=== PATIENT | female | born 1975 | race Caucasian/White ===

== ENCOUNTER → 2016-09-30 | Outpatient (CLI) | payer MEDICARE, OTHER | END | disposition home or self-care (01) | LOC: CPPFTMAIN 12:11 | PROVIDERS: ATTEND Internal Medicine Pulmonary Disease | DX: R06.02 Shortness of breath (principal) | CPT/HCPCS: 94060; 94726; 94729 ==

== ENCOUNTER → 2017-01-14 | Outpatient (CLI) | payer MEDICARE, OTHER ==
[2017-01-14 12:34] LABS: ALT 23 U/L (9-52); AST 14 U/L (14-36); Alkaline Phosphatase 75 U/L (38-126); Anion Gap 9 mmol/L; Blood Urea Nitrogen 11 mg/dL (7-17); Calcium 8.8 mg/dL (8.4-10.2); Carbon Dioxide 25 mmol/L (22-30); Chloride 104 mmol/L (98-107); Cholesterol 182 mg/dL (<200); Glucose 188 mg/dL (74-99); HDL Cholesterol 48 mg/dL (40-60); Non-African American GFR(MDRD) >60 (>60 ml/min/1.73 sqM); Potassium 3.9 mmol/L (3.5-5.1); Sodium 138 mmol/L (137-145); Total Bilirubin 1.1 mg/dL (0.2-1.3); Total Protein 6.6 g/dL (6.3-8.2); Triglycerides 104 mg/dL (<150)
[2017-01-14 19:40] LABS: Urine Creatinine 338.2 mg/dL
== END | disposition home or self-care (01) ==
LOC: LABWHC1 11:12
PROVIDERS: ATTEND Internal Medicine Endocrinology, Diabetes & Metabolism
DX: E11.65 Type 2 diabetes mellitus with hyperglycemia (principal)
CPT/HCPCS: 36415; 80053; 80061; 82043; 82570

== ENCOUNTER → 2017-02-06 | Outpatient (CLI) | payer MEDICARE, OTHER ==
--- NOTE | 2017-02-09 10:18 | MM ---
Reason for exam: screening (asymptomatic). Last mammogram was performed 1 year ago. History: Benign excisional biopsy of the left breast, 2000. Physical Findings: A clinical breast exam by your physician is recommended on an annual basis and results should be correlated with mammographic findings. MG 3D Screening Mammo W/Cad Bilateral CC and MLO view(s) were taken. Prior study comparison: February 11, 2016, bilateral MG 3d screening mammo w/cad. February 07, 2015, bilateral MG screening mammo w CAD. There are scattered fibroglandular densities. Benign calcifications. There is no discrete abnormality. No significant changes when compared with prior studies. ASSESSMENT: Benign, BI-RAD 2 RECOMMENDATION: Routine screening mammogram of both breasts in 1 year.
== END | disposition home or self-care (01) ==
LOC: RADMAMWWP 15:35
PROVIDERS: ATTEND Family Medicine
DX: Z12.31 Encounter for screening mammogram for malignant neoplasm of breast (principal)
CPT/HCPCS: 77063; G0202

== ENCOUNTER → 2017-04-09 | Outpatient (CLI) | payer MEDICARE, OTHER ==
[2017-04-13 16:03] LABS: Mis test requested (Blood) Osmotic Fragility
== END | disposition home or self-care (01) ==
LOC: LABWHC1 09:24
PROVIDERS: ATTEND Internal Medicine Hematology & Oncology
DX: E11.9 Type 2 diabetes mellitus without complications (principal); J45.909 Unspecified asthma, uncomplicated; E78.5 Hyperlipidemia, unspecified; R51 Headache; D50.9 Iron deficiency anemia, unspecified
CPT/HCPCS: 36415; 85557

== ENCOUNTER → 2017-07-02 | Outpatient (CLI) | payer MEDICARE, OTHER ==
[2017-07-02 08:49] LABS: Blood Urea Nitrogen 12 mg/dL (7-17)
--- NOTE | 2017-07-02 10:15 | CT ---
EXAMINATION TYPE: CT abdomen pelvis w con DATE OF EXAM: 07/02/2017 HISTORY: Patient complains of RUQ to RLQ pain. Patient has history of enlarged spleen (abnormal US a [facility]). CT DLP: 866.3mGycm Automated Exposure Control for Dose Reduction was Utilized. CONTRAST: CT scan of the abdomen and pelvis is performed with IV Contrast, patient injected with 100 mL of Omni paque 300. COMPARISON: 03/18/2016 CT abdomen pelvis FINDINGS: LUNG BASES: Minimal bibasilar subsegmental dependent atelectasis is present. LIVER/GB: No significant abnormality is appreciated. Gallbladder is surgically absent. No intrahepati c biliary ductal dilatation. PANCREAS: No significant abnormality is seen. SPLEEN: Although the spleen is prominent in size measuring 13.2 cm in longitudinal dimension and 11.8 cm in craniocaudal dimension this does not meet criteria for splenomegaly. The size is similar to th e exam of 03/18/2016. ADRENALS: No significant abnormality is seen. KIDNEYS: Kidneys enhance and excrete symmetrically. No evidence of hydronephrosis. BOWEL: Postsurgical changes of surgical sutures are seen around the greater curvature of the stomach from gastric sleeve. Small hiatal hernia is noted. Mild increased attenuation at the hepatic flexure is thought to relate to progression of contrast. No focal thickening or obstruction. UTERUS/ADNEXA: Follicular changes are seen of the ovaries with a dominant right cystic lesion, likely dominant follicle measuring up to 2 cm. Low attenuation of the endometrium likely relates to the pha se of menses. Uterus is grossly unremarkable. LYMPH NODES: No greater than 1cm abdominal or pelvic lymph nodes are appreciated. OSSEOUS STRUCTURES: No significant abnormality is seen. No suspicious osseous lesions. OTHER: There is mild diastases recti and a tiny fat filled umbilical hernia measuring 4 mm. IMPRESSION: 1. Prominent splenic size, although the spleen does not meet criteria for splenomegaly. This is simil ar in caliber to the prior exam of 03/18/2016. 2. No CT finding is seen to account for patient's clinical symptoms of right upper quadrant and right lower quadrant pain.
== END | disposition home or self-care (01) ==
LOC: RADCTMAIN 08:10
PROVIDERS: ATTEND Internal Medicine Hematology & Oncology
DX: R16.1 Splenomegaly, not elsewhere classified (principal); Z88.1 Allergy status to other antibiotic agents; Z88.8 Allergy status to other drugs, medicaments and biological substances
CPT/HCPCS: 82565; 84520; 74177; 36415; Q9967

== ENCOUNTER 2017-07-28 13:05 | Emergency (ER) | payer MEDICARE, OTHER ==
--- NOTE | 2017-07-28 13:45 | ED ---
General Adult HPI - General Chief complaint: Upper Respiratory Infection Stated complaint: Flu like symptoms Time Seen by Provider: 07/28/17 13:05 Source: patient, RN notes reviewed Mode of arrival: ambulatory Limitations: no limitations - History of Present Illness Initial comments: This is a 42 year old female presents emergency department stating that for about 9 days now she's had a cough and some congestion and a little tightness in her chest on occasion. Patient states she has been treated with Zithromax and Tamiflu about a week ago and she does not feel any better. Patient states she continues to cough and feels others fluid in her chest but she is unable to cough it up. Patient states she doesn't really feel that short of breath other than some tightness occasionally in her chest. Patient states she does have a history of asthma. Patient denies any anterior chest pain or pressure. Patient denies any recent fever chills. Patient denies abdominal pain patient denies nausea vomiting diarrhea - Related Data Home Medications Medication Instructions Recorded Confirmed Cholecalciferol [Vitamin D3] 2,000 unit PO DAILY 06/23/14 07/28/17 Mirtazapine [Remeron] 15 mg PO HS 06/23/14 07/28/17 Montelukast Sodium [Singulair] 10 mg PO HS 06/23/14 07/28/17 Omeprazole [PriLOSEC] 20 mg PO DAILY 06/23/14 07/28/17 clonazePAM [KlonoPIN] 0.5 mg PO HS 06/23/14 07/28/17 Albuterol Inhaler [Ventolin 1 - 2 puff INHALATION RT-Q6H PRN 01/11/15 07/28/17 Inhaler] Cyclobenzaprine [Flexeril] 10 mg PO HS PRN 01/11/15 07/28/17 Fluticasone/Salmeterol [Advair Hfa 2 puff INHALATION RT-DAILY 01/11/15 07/28/17 115-21 Mcg Inhaler] ALPRAZolam [Xanax] 0.25 mg PO BID PRN 07/28/17 07/28/17 Calcium Carbonate [Calcium] 600 mg PO DAILY 07/28/17 07/28/17 Exenatide Microspheres [Bydureon 2 mg SQ WE 07/28/17 07/28/17 Pen] Gabapentin [Neurontin] 300 mg PO HS 07/28/17 07/28/17 Latanoprost Ophth [Xalatan 0.005%] 1 drops BOTH EYES HS 07/28/17 07/28/17 Multivitamins, Thera [Multivitamin 1 tab PO DAILY 07/28/17 07/28/17 (formulary)] Pravastatin Sodium [Pravachol] 80 mg PO HS 07/28/17 07/28/17 Ranitidine HCl [Zantac] 150 mg PO BID 07/28/17 07/28/17 Vitamin C/Biotin [Hair, Skin and 1 tab PO DAILY 07/28/17 07/28/17 Nails] glipiZIDE [Glucotrol] 5 mg PO AC-BID 07/28/17 07/28/17 metFORMIN HCL ER [Glucophage Xr] 500 mg PO HS 07/28/17 07/28/17 Previous Rx's Medication Instructions Recorded Ciprofloxacin HCl [Cipro] 500 mg PO Q12HR #20 tablet 07/28/17 Allergies Allergy/AdvReac Type Severity Reaction Status Date / Time erythromycin base Allergy TOLD BY DR Verified 07/28/17 13:52 NOT TO TAKE -GASTRIC SLEEVE ibuprofen Allergy HISTORY OF Verified 07/28/17 13:52 GASTRIC SLEEVE-NOT TO TAKE PER " sumatriptan [From Imitrex] Allergy AGITATION,H Verified 07/28/17 13:52 ALLUCINATIO NS sumatriptan succinate Allergy Hallucinati Verified 07/28/17 13:52 [From Imitrex] ons topiramate [From Topamax] Allergy Hallucinati Verified 07/28/17 13:52 ons vancomycin Allergy RED MAN Verified 07/28/17 13:52 SYNDROME,SHORTNESS OF BREATH benzoperoxide Allergy Rash/Hives Uncoded 07/28/17 13:13 Review of Systems ROS Statement: Those systems with pertinent positive or pertinent negative responses have been documented in the HPI. ROS Other: All systems not noted in ROS Statement are negative. Past Medical History Past Medical History: Asthma, Diabetes Mellitus, GERD/Reflux, Hyperlipidemia, Rheumatoid Arthritis (RA) Additional Past Medical History / Comment(s): MIGRAINE, FATTY LIVER,IRRITABLE BOWEL, History of Any Multi-Drug Resistant Organisms: MRSA, Other MDRO Date of last positivie culture/infection: 2013 MDRO Source:: nasal Past Surgical History: Adenoidectomy, Bariatric Surgery, Breast Surgery, Section, Cholecystectomy, Hernia Repair, Tonsillectomy, Tubal Ligation Additional Past Surgical History / Comment(s): deviated septum,GASTRIC SLEEVE,D& C,LAP BAN, LAP BAND REMOVAL,UMBILICAL HERNIA,INCISIONAL HERNIA,RIGHT ANKLE SURGERY,CYST BIOPSY Past Anesthesia/Blood Transfusion Reactions: Postoperative Nausea & Vomiting ( PONV) Past Psychological History: Anxiety, Bipolar, PTSD Smoking Status: Former smoker Past Alcohol Use History: Rare Past Drug Use History: None Reported - Past Family History Sister(s) Family Medical History: Deep Vein Thrombosis (DVT) General Exam - General Exam Comments Initial Comments: GENERAL: Patient is well-developed and well-nourished. Patient is nontoxic and well- hydrated and is in mild distress. ENT: Neck is soft and supple. No significant lymphadenopathy is noted. Oropharynx is clear. Moist mucous membranes. Neck has full range of motion without eliciting any pain. EYES: The sclera were anicteric and conjunctiva were pink and moist. Extraocular movements were intact and pupils were equal round and reactive to light. Eyelids were unremarkable. PULMONARY: Unlabored respirations. Good breath sounds bilaterally. No audible rales rhonchi or wheezing was noted. CARDIOVASCULAR: There is a regular rate and rhythm without any murmurs gallops or rubs. ABDOMEN: Soft and nontender with normal bowel sounds. SKIN: Skin is clear with no lesions or rashes and otherwise unremarkable. NEUROLOGIC: Patient is alert and oriented x3. Cranial nerves II through XII are grossly intact. Motor and sensory are also intact. Normal speech, volume and content. Symmetrical smile. MUSCULOSKELETAL: Normal extremities with adequate strength and full range of motion. No lower extremity swelling or edema. No calf tenderness. LYMPHATICS: No significant lymphadenopathy is noted PSYCHIATRIC: Normal psychiatric evaluation. Limitations: no limitations Course Vital Signs 07/28/17 13:09 Temperature 98.1 F Pulse Rate 90 Respiratory 18 Rate Blood Pressure 116/68 O2 Sat by Pulse 99 Oximetry Medical Decision Making - Medical Decision Making Chest x-ray shows no acute abnormality. Disposition Clinical Impression: Bronchitis Disposition: HOME SELF-CARE Condition: Good Instructions: Acute Bronchitis (ED) Prescriptions: Ciprofloxacin HCl [Cipro] 500 mg PO Q12HR #20 tablet Referrals: Kaylee Bond MD [Primary Care Provider] - 1-2 days Time of Disposition: 14:20
--- NOTE | 2017-07-28 13:53 | XR ---
EXAMINATION TYPE: XR chest 2V DATE OF EXAM: 07/28/2017 COMPARISON: Chest x-ray February 26, 2016. HISTORY: Difficulty in breathing. TECHNIQUE: Frontal and lateral views of the chest are obtained. FINDINGS: There is no focal air space opacity, pleural effusion, or pneumothorax seen. The cardiac silhouette size is within normal limits. The osseous structures are intact. Cholecystectomy clips a re redemonstrated. Surgical clips near diaphragmatic hiatus are again seen. IMPRESSION: No acute cardiopulmonary process. No significant change from prior.
[2017-07-28 14:45] VITALS: BP 117/66; PULSE 71; RESP 16; TEMP 97.9
== END 2017-07-28 14:45 | disposition home or self-care (01) ==
LOC: EC 13:05
DX: J45.909 Unspecified asthma, uncomplicated (principal); E78.5 Hyperlipidemia, unspecified; E11.9 Type 2 diabetes mellitus without complications; K21.9 Gastro-esophageal reflux disease without esophagitis; F41.9 Anxiety disorder, unspecified; Z87.891 Personal history of nicotine dependence; Z79.51 Long term (current) use of inhaled steroids; Z79.84 Long term (current) use of oral hypoglycemic drugs; Z79.899 Other long term (current) drug therapy; Z88.1 Allergy status to other antibiotic agents; Z88.6 Allergy status to analgesic agent; Z88.8 Allergy status to other drugs, medicaments and biological substances; Z86.14 Personal history of Methicillin resistant Staphylococcus aureus infection
CPT/HCPCS: 71046; 99283

== ENCOUNTER → 2017-08-10 | Outpatient (CLI) | payer MEDICARE, OTHER ==
[2017-08-10 10:29] LABS: ALT 26 U/L (9-52); AST 16 U/L (14-36); Albumin 4.3 g/dL (3.5-5.0); Alkaline Phosphatase 79 U/L (38-126); Anion Gap 10 mmol/L; Blood Urea Nitrogen 14 mg/dL (7-17); Calcium 9.7 mg/dL (8.4-10.2); Carbon Dioxide 30 mmol/L (22-30); Chloride 100 mmol/L (98-107); Cholesterol 208 mg/dL (<200); Glucose 232 mg/dL (74-99); HDL Cholesterol 48 mg/dL (40-60); LDL Cholesterol,Calculated 135 mg/dL (0-99); Potassium 3.6 mmol/L (3.5-5.1); Sodium 140 mmol/L (137-145); Total Bilirubin 1.3 mg/dL (0.2-1.3); Total Protein 7.7 g/dL (6.3-8.2); Triglycerides 125 mg/dL (<150)
[2017-08-10 17:26] LABS: Hemoglobin A1C 8.1 % (4.0-6.0)
== END | disposition home or self-care (01) ==
LOC: LABWHC1 09:50
PROVIDERS: ATTEND Internal Medicine Endocrinology, Diabetes & Metabolism
DX: E11.65 Type 2 diabetes mellitus with hyperglycemia (principal)
CPT/HCPCS: 36415; 80053; 80061; 82043; 82570; 83036

== ENCOUNTER → 2017-11-13 | Outpatient (CLI) | payer MEDICARE, OTHER ==
[2017-11-13 09:27] LABS: ALT 34 U/L (9-52); AST 16 U/L (14-36); Albumin 4.1 g/dL (3.5-5.0); Alkaline Phosphatase 80 U/L (38-126); Anion Gap 13 mmol/L; Blood Urea Nitrogen 12 mg/dL (7-17); Calcium 9.1 mg/dL (8.4-10.2); Carbon Dioxide 25 mmol/L (22-30); Chloride 101 mmol/L (98-107); Cholesterol 168 mg/dL (<200); Glucose 251 mg/dL (74-99); HDL Cholesterol 44 mg/dL (40-60); LDL Cholesterol,Calculated 97 mg/dL (0-99); Potassium 4.1 mmol/L (3.5-5.1); Sodium 139 mmol/L (137-145); Total Bilirubin 1.4 mg/dL (0.2-1.3); Total Protein 6.9 g/dL (6.3-8.2); Triglycerides 136 mg/dL (<150)
[2017-11-13 18:32] LABS: Hemoglobin A1C 8.4 % (4.0-6.0)
== END ==
LOC: LABWHC1 08:48
PROVIDERS: ATTEND Internal Medicine Endocrinology, Diabetes & Metabolism
DX: E11.65 Type 2 diabetes mellitus with hyperglycemia (principal)
CPT/HCPCS: 36415; 80053; 80061; 83036

== ENCOUNTER → 2017-11-13 | Outpatient (CLI) | payer MEDICARE, OTHER ==
--- NOTE | 2017-11-13 10:05 | US ---
EXAMINATION TYPE: US abdomen limited DATE OF EXAM: 11/13/2017 COMPARISON: CT CLINICAL HISTORY: Arthropathy, Splenomegaly R16.1. Pt states history of enlarged spleen/ autoimmune d isorder EXAM MEASUREMENTS: Spleen: 12.7 x 6.5 cm Left Kidney: 11.6 x 4.8 x 5.2 cm 1. Spleen: Unremarkable in morphology and echogenicity 2. Left Kidney: Appeared wnl . No hydronephrosis or nephrolithiasis. IMPRESSION: Spleen is prominent in size although does not meet size criteria for splenomegaly. This i s similar to exams of 07/02/2017 and 03/18/2016.
--- NOTE | 2017-11-15 20:12 | BD ---
EXAMINATION TYPE: Axial Bone Density DATE OF EXAM: 11/13/2017 COMPARISON: NONE CLINICAL HISTORY: 42 YR OLD FEMALE....ICD-10 CODE: M12.9 ARTHRITIS Height: 67 Weight: 198 FRAX RISK QUESTIONS: Glucocorticoids (More than 3mos): YES (Ex: prednisone, prednisolone, methylprednisolone, dexamethasone, and hydrocortisone). Secondary Osteoporosis: YES 5. Chronic liver disease: FATTY LIVER Rheumatoid Arthritis: NOT TREATED, BUT HAS MARKERS FOR RA RISK FACTORS HISTORY OF: Active: YES Diet low in dairy products/other sources of calcium: YES, GASTRIC SLEEVE Postmenopausal woman: NA Hyperparathyroidism: NO Adrenal Insufficiency: NO MEDICATIONS: Prednisone or other steroids: ASTHMA, INHALERS AND PREDNISONE How Lon YRS Additional Medications: XANAX PRN, CLONAZEPAM, REMERON, REFLUX MEDS,LIPITOR, CALCIUM AND VIT D, DIAB ETIC MEDS Additional History: DIABETIC, REFLUX BI-POLAR, AUTO IMMUNE CONDITION EXAM MEASUREMENTS: Bone mineral densitometry was performed using the [employer] System. Bone mineral density as measured about the Lumbar spine is: ----- L1-L4(G/cm2): 1.407 T Score Values are as follows: ----- L1: 1.6 ----- L2: 2.3 ----- L3: 2.9 ----- L4: 0.9 ----- L1-L4: 1.9 Bone mineral density FIRST BONE DENSITY......BASELINE STUDY Bone mineral density about the R hip (g/cm2): 1.246 Bone mineral density about the L hip (g/cm2): 1.239 T Score values are as follows: -----R Neck: 1.4 -----L Neck: 1.1 -----R Total: 1.9 -----L Total: 1.8 Bone mineral density BASELINE STUDY FRAX%S: THERE IS A 2.65 CHANCE OF A MAJOR OSTEOPOROTIC FX AND A 0.0% FOR HIP FX.....PROBABILITY O F FX IN 10 YRS TIME IMPRESSION: Note that Z score values were utilized given premenopausal status. Bone mineral density is within the expected range for patient's age. NOTE: T-SCORE=SD OF THE YOUNG ADULT MEAN.
== END | disposition home or self-care (01) ==
LOC: RADBDWWP 08:01
PROVIDERS: ATTEND Internal Medicine Hematology & Oncology
DX: R16.1 Splenomegaly, not elsewhere classified (principal); M19.90 Unspecified osteoarthritis, unspecified site; Z88.1 Allergy status to other antibiotic agents; Z88.8 Allergy status to other drugs, medicaments and biological substances
CPT/HCPCS: 76705; 77080

== ENCOUNTER → 2018-02-16 | Outpatient (CLI) | payer MEDICARE, OTHER ==
--- NOTE | 2018-02-18 11:13 | MM ---
Reason for exam: screening (asymptomatic). Last mammogram was performed 1 year ago. History: Benign excisional biopsy of the left breast, 2000. Physical Findings: A clinical breast exam by your physician is recommended on an annual basis and results should be correlated with mammographic findings. MG 3D Screening Mammo W/Cad Bilateral CC and MLO view(s) were taken. Prior study comparison: February 06, 2017, bilateral MG 3d screening mammo w/cad. February 11, 2016, bilateral MG 3d screening mammo w/cad. There are scattered fibroglandular densities. No significant changes when compared with prior studies. ASSESSMENT: Benign, BI-RAD 2 RECOMMENDATION: Routine screening mammogram of both breasts in 1 year.
== END | disposition home or self-care (01) ==
LOC: RADMAMWWP 10:59
PROVIDERS: ATTEND Family Medicine
DX: Z12.31 Encounter for screening mammogram for malignant neoplasm of breast (principal)
CPT/HCPCS: 77063; 77067

== ENCOUNTER 2018-06-07 04:51 | Observation (INO) | payer MEDICARE, OTHER ==
[2018-06-07] MEDS ORDERED: SODIUM CHLORIDE 0.9% 500 ML 500 ML IV STA (04:53)
[2018-06-07] MEDS ORDERED: ASPIRIN 81 MG PO STA (04:53)
--- NOTE | 2018-06-07 05:13 | ED ---
General Adult HPI - General Chief complaint: Chest Pain Stated complaint: chest pain Time Seen by Provider: 06/07/18 04:53 Source: patient, RN notes reviewed, old records reviewed - History of Present Illness Initial comments: 42-year-old female presents for evaluation of chest pain. Patient's symptoms began about 30 minutes prior to arrival. She was transported by EMS, given nitroglycerin which improved her symptoms. Pain began as a squeezing substernal pain radiating to her left neck and left shoulder. Pain resolved at the time of my initial evaluation. She has no known history of coronary artery disease herself. She has family history of cardiomyopathy and family history of CAD including both her mother and father. She herself has history of TIA and DVT. She is currently on Xarelto. Patient denies diaphoresis. Denies nausea or vomiting. Patient is a nonsmoker. She has history of diabetes. - Related Data Home Medications Medication Instructions Recorded Confirmed Cholecalciferol [Vitamin D3] 2,000 unit PO DAILY 06/23/14 05/19/18 Mirtazapine [Remeron] 15 mg PO HS 06/23/14 05/19/18 Montelukast Sodium [Singulair] 10 mg PO HS 06/23/14 05/19/18 clonazePAM [KlonoPIN] 0.5 mg PO HS 06/23/14 05/19/18 Albuterol Inhaler [Ventolin 1 - 2 puff INHALATION RT-Q6H PRN 01/11/15 05/19/18 Inhaler] Cyclobenzaprine [Flexeril] 10 mg PO HS PRN 01/11/15 05/19/18 Fluticasone/Salmeterol [Advair Hfa 2 puff INHALATION RT-DAILY 01/11/15 05/19/18 115-21 Mcg Inhaler] ALPRAZolam [Xanax] 0.25 mg PO BID PRN 07/28/17 05/19/18 Calcium Carbonate [Calcium] 600 mg PO DAILY 07/28/17 05/19/18 Exenatide Microspheres [Bydureon 2 mg SQ WE 07/28/17 05/19/18 Pen] Gabapentin [Neurontin] 300 mg PO HS 07/28/17 05/19/18 Latanoprost Ophth [Xalatan 0.005%] 1 drops BOTH EYES HS 07/28/17 05/19/18 Multivitamins, Thera [Multivitamin 1 tab PO DAILY 07/28/17 05/19/18 (formulary)] Pravastatin Sodium [Pravachol] 80 mg PO HS 07/28/17 05/19/18 Vitamin C/Biotin [Hair, Skin and 1 tab PO DAILY 07/28/17 05/19/18 Nails] Omalizumab [Xolair] 300 mg SQ DIRECTED 12/01/17 05/19/18 Insulin Glargine [Lantus] 20 unit SQ HS 12/29/17 05/19/18 Rivaroxaban [Xarelto] 10 mg PO DAILY 03/24/18 05/19/18 Allergies Allergy/AdvReac Type Severity Reaction Status Date / Time erythromycin base Allergy TOLD BY DR Verified 05/19/18 09:02 NOT TO TAKE -GASTRIC SLEEVE ibuprofen Allergy HISTORY OF Verified 05/19/18 09:02 GASTRIC SLEEVE-NOT TO TAKE PER DR" sumatriptan [From Imitrex] Allergy AGITATION,H Verified 05/19/18 09:02 ALLUCINATIO NS sumatriptan succinate Allergy Hallucinati Verified 05/19/18 09:02 [From Imitrex] ons topiramate [From Topamax] Allergy Hallucinati Verified 05/19/18 09:02 ons vancomycin Allergy RED MAN Verified 05/19/18 09:02 SYNDROME,SHORTNESS OF BREATH benzoperoxide Allergy Rash/Hives Uncoded 05/19/18 09:02 Review of Systems ROS Statement: Those systems with pertinent positive or pertinent negative responses have been documented in the HPI. ROS Other: All systems not noted in ROS Statement are negative. Past Medical History Past Medical History: Asthma, Diabetes Mellitus, Deep Vein Thrombosis (DVT), GERD/Reflux, Hyperlipidemia, Rheumatoid Arthritis (RA) Additional Past Medical History / Comment(s): MIGRAINE, FATTY LIVER,IRRITABLE BOWEL. BLOOD RIGHT LEG. History of Any Multi-Drug Resistant Organisms: MRSA, Other MDRO Date of last positivie culture/infection: 2013 MDRO Source:: nasal Past Surgical History: Adenoidectomy, Bariatric Surgery, Breast Surgery, Section, Cholecystectomy, Hernia Repair, Tonsillectomy, Tubal Ligation Additional Past Surgical History / Comment(s): deviated septum,GASTRIC SLEEVE,D& C,LAP BAN, LAP BAND REMOVAL,UMBILICAL HERNIA,INCISIONAL HERNIA,RIGHT ANKLE SURGERY,CYST BIOPSY Past Anesthesia/Blood Transfusion Reactions: Postoperative Nausea & Vomiting ( PONV) Past Psychological History: Anxiety, Bipolar, PTSD Smoking Status: Former smoker - Past Family History Sister(s) Family Medical History: Deep Vein Thrombosis (DVT) General Exam General appearance: alert, in no apparent distress Head exam: Present: atraumatic, normocephalic Eye exam: Present: normal appearance, PERRL ENT exam: Present: normal exam Neck exam: Present: normal inspection. Absent: tenderness, meningismus Respiratory exam: Present: normal lung sounds bilaterally. Absent: respiratory distress, wheezes Cardiovascular Exam: Present: regular rate, normal rhythm GI/Abdominal exam: Present: soft. Absent: distended, tenderness, guarding Extremities exam: Present: normal inspection, normal capillary refill. Absent: pedal edema, calf tenderness Neurological exam: Present: alert, oriented X3, CN II-XII intact. Absent: motor sensory deficit Psychiatric exam: Present: normal affect, normal mood Skin exam: Present: warm, dry, intact. Absent: cyanosis, diaphoretic Course Vital Signs 06/07/18 06/07/18 04:52 06:08 Pulse Rate 67 68 Respiratory 16 16 Rate Blood Pressure 143/82 118/68 O2 Sat by Pulse 99 100 Oximetry EKG Findings - EKG Comments: EKG Findings:: EKG: Normal sinus rhythm, minimal voltage criteria for LVH, T- wave inversion in lead 3 with Q waves. Ventricular rate of 66, OK interval 156 , QRS duration 84, QTC 419, no significant change compared to previous EKG in 2012. Medical Decision Making - Medical Decision Making 42-year-old female presenting with chest pain which began approximately 30 minutes prior to arrival. Pain was typical in nature, squeezing substernal pain with radiation to the neck and shoulder. Patient does have risk factors including diabetes and family history of coronary artery disease. Workup in the emergency department is essentially negative. Patient has normal CBC, d- dimer normal at 0.43. Troponin is negative. Patient has mild elevation in AST and ALT although she has no abdominal pain and previous cholecystectomy. Chest x-ray negative for acute cardiopulmonary disease. Given her symptoms began just prior to arrival and her risk factor she will be kept in observation for serial cardiac enzymes, telemetry, echo, and cardiology consultation. She is anticoagulated on Xarelto, which is her home medication. - Lab Data Result diagrams: 06/07/18 04:52 06/07/18 04:52 Lab Results 06/07/18 06/07/18 06/07/18 Range/Units 04:52 04:52 04:52 WBC 6.9 (3.8-10.6) k/uL RBC 4.77 (3.80-5.40) m/uL Hgb 14.0 (11.4-16.0) gm/dL Hct 39.7 (34.0-46.0) % MCV 83.3 (80.0-100.0) fL MCH 29.4 (25.0-35.0) pg MCHC 35.3 (31.0-37.0) g/dL RDW 12.5 (11.5-15.5) % Plt Count 292 (150-450) k/uL Neutrophils % 62 % Lymphocytes % 28 % Monocytes % 6 % Eosinophils % 3 % Basophils % 1 % Neutrophils # 4.3 (1.3-7.7) k/uL Lymphocytes # 2.0 (1.0-4.8) k/uL Monocytes # 0.4 (0-1.0) k/uL Eosinophils # 0.2 (0-0.7) k/uL Basophils # 0.1 (0-0.2) k/uL PT (9.0-12.0) sec INR (<1.2) APTT (22.0-30.0) sec D-Dimer (<0.60) mg/L FEU Sodium 139 (137-145) mmol/L Potassium 3.7 (3.5-5.1) mmol/L Chloride 103 (98-107) mmol/L Carbon Dioxide 29 (22-30) mmol/L Anion Gap 7 mmol/L BUN 10 (7-17) mg/dL Creatinine 0.58 (0.52-1.04) mg/dL Est GFR (CKD-EPI)AfAm >90 (>60 ml/min/1.73 sqM) Est GFR (CKD-EPI)NonAf >90 (>60 ml/min/1.73 sqM) Glucose 195 H (74-99) mg/dL Calcium 9.0 (8.4-10.2) mg/dL Magnesium 1.9 (1.6-2.3) mg/dL Total Bilirubin 0.7 (0.2-1.3) mg/dL AST 67 H (14-36) U/L ALT 57 H (9-52) U/L Alkaline Phosphatase 90 (38-126) U/L Total Creatine Kinase 57 (30-135) U/L CK-MB (CK-2) 0.4 (0.0-2.4) ng/mL CK-MB (CK-2) Rel Index 0.7 Troponin I <0.012 (0.000-0.034) ng/mL NT-Pro-B Natriuret Pep pg/mL Total Protein 7.2 (6.3-8.2) g/dL Albumin 3.9 (3.5-5.0) g/dL Amylase 47 (30-110) U/L Lipase 85 (23-300) U/L 06/07/18 06/07/18 06/07/18 Range/Units 04:52 04:52 04:52 WBC (3.8-10.6) k/uL RBC (3.80-5.40) m/uL Hgb (11.4-16.0) gm/dL Hct (34.0-46.0) % MCV (80.0-100.0) fL MCH (25.0-35.0) pg MCHC (31.0-37.0) g/dL RDW (11.5-15.5) % Plt Count (150-450) k/uL Neutrophils % % Lymphocytes % % Monocytes % % Eosinophils % % Basophils % % Neutrophils # (1.3-7.7) k/uL Lymphocytes # (1.0-4.8) k/uL Monocytes # (0-1.0) k/uL Eosinophils # (0-0.7) k/uL Basophils # (0-0.2) k/uL PT 10.7 (9.0-12.0) sec INR 1.0 (<1.2) APTT 26.0 (22.0-30.0) sec D-Dimer 0.43 (<0.60) mg/L FEU Sodium (137-145) mmol/L Potassium (3.5-5.1) mmol/L Chloride (98-107) mmol/L Carbon Dioxide (22-30) mmol/L Anion Gap mmol/L BUN (7-17) mg/dL Creatinine (0.52-1.04) mg/dL Est GFR (CKD-EPI)AfAm (>60 ml/min/1.73 sqM) Est GFR (CKD-EPI)NonAf (>60 ml/min/1.73 sqM) Glucose (74-99) mg/dL Calcium (8.4-10.2) mg/dL Magnesium (1.6-2.3) mg/dL Total Bilirubin (0.2-1.3) mg/dL AST (14-36) U/L ALT (9-52) U/L Alkaline Phosphatase (38-126) U/L Total Creatine Kinase (30-135) U/L CK-MB (CK-2) (0.0-2.4) ng/mL CK-MB (CK-2) Rel Index Troponin I (0.000-0.034) ng/mL NT-Pro-B Natriuret Pep 36 pg/mL Total Protein (6.3-8.2) g/dL Albumin (3.5-5.0) g/dL Amylase (30-110) U/L Lipase (23-300) U/L Disposition Clinical Impression: Chest pain Disposition: ADMITTED IP TO THIS [facility] Condition: Stable Is patient prescribed a controlled substance at d/c from ED?: No Referrals: Kaylee Bond MD [Primary Care Provider] - 1-2 days Decision to Admit Reason: Admit from EC Decision Date: 06/07/18 Decision Time: 06:12
[2018-06-07 05:14] LABS: Basophils # (A) 0.1 k/uL (0-0.2); Basophils % (A) 1 %; Eosinophils # (A) 0.2 k/uL (0-0.7); Eosinophils % (A) 3 %; HCT 39.7 % (34.0-46.0); Lymphocytes % (A) 28 %; MCH 29.4 pg (25.0-35.0); MCHC 35.3 g/dL (31.0-37.0); MCV 83.3 fL (80.0-100.0); Mean Platelet Volume 6.7; Monocytes # (A) 0.4 k/uL (0-1.0); Monocytes % (A) 6 %; Neutrophils # (A) 4.3 k/uL (1.3-7.7); Neutrophils % (A) 62 %; Platelet Count 292 k/uL (150-450); RBC 4.77 m/uL (3.80-5.40); RDW 12.5 % (11.5-15.5); WBC 6.9 k/uL (3.8-10.6)
[2018-06-07 05:16] LABS: Prothrombin Time 10.7 sec (9.0-12.0)
[2018-06-07 05:17] LABS: ALT 57 U/L (9-52); AST 67 U/L (14-36); Albumin 3.9 g/dL (3.5-5.0); Alkaline Phosphatase 90 U/L (38-126); Amylase 47 U/L (30-110); Anion Gap 7 mmol/L; Blood Urea Nitrogen 10 mg/dL (7-17); Carbon Dioxide 29 mmol/L (22-30); Chloride 103 mmol/L (98-107); Glucose 195 mg/dL (74-99); Lipase 85 U/L (23-300); Magnesium 1.9 mg/dL (1.6-2.3); Potassium 3.7 mmol/L (3.5-5.1); Sodium 139 mmol/L (137-145); Total Bilirubin 0.7 mg/dL (0.2-1.3); Total Protein 7.2 g/dL (6.3-8.2)
--- NOTE | 2018-06-07 05:25 | XR ---
EXAM: XR Chest, 2 Views CLINICAL HISTORY: Chest Pain TECHNIQUE: Frontal and lateral views of the chest. COMPARISON: 07/28/17 FINDINGS: Lungs: Unremarkable. No consolidation. Pleural space: Unremarkable. No pneumothorax. Heart: Unremarkable. No cardiomegaly. Mediastinum: Unremarkable. Bones/joints: Unremarkable. IMPRESSION: No acute findings or substantial change
[2018-06-07 05:28] LABS: Creatine Kinase 57 U/L (30-135)
[2018-06-07 05:41] LABS: Creatine Kinase MB 0.4 ng/mL (0.0-2.4); Troponin I <0.012 ng/mL (0.000-0.034)
[2018-06-07] MEDS ORDERED: ACETAMINOPHEN TAB 325 MG TAB PO PRN (06:06)
[2018-06-07] MEDS ORDERED: HYDROmorphone 0.5 MG/0.5 ML SYRINGE IVP PRN (06:06)
[2018-06-07] MEDS ORDERED: NALOXONE 0.4 MG/ML 1 ML VIAL IV PRN (06:06)
[2018-06-07] MEDS ORDERED: NITROGLYCERIN SL TABS 0.4 MG TAB SUBLINGUAL PRN (06:08)
[2018-06-07] MEDS ORDERED: HYDROmorphone 1 MG/ML 1 ML SYRINGE IVP PRN (06:09)
[2018-06-07] MEDS ORDERED: ALPRAZolam 0.25 MG TAB PO PRN (08:30)
[2018-06-07] MEDS ORDERED: ALBUTEROL NEBULIZED 2.5 MG/3 ML INHALATION PRN (08:30)
[2018-06-07] MEDS ORDERED: HYDROCHLOROTHIAZIDE 12.5 MG CAP PO PRN (08:30)
[2018-06-07] MEDS ORDERED: HYDROcodone/APAP 5-325MG 1 EACH TAB PO PRN (08:30)
[2018-06-07] MEDS ORDERED: ONDANSETRON ODT 4 MG TAB PO PRN (08:30)
[2018-06-07] MEDS: RIVAROXABAN 10 MG TAB PO SCH (08:41)
[2018-06-07] MEDS: FAMOTIDINE 20 MG TAB PO SCH ×2 (08:41→20:08)
--- NOTE | 2018-06-07 10:18 | P.CRDCN ---
History of Present Illness Consult date: 06/07/18 Requesting physician: Ankita Crowe Reason for Consult (text): chest pain Chief complaint: chest pain History of present illness: This is a pleasant 42-year-old female with history of diabetes, hyperlipidemia, unknown autoimmune disorder, DVT, prior smoker quit 18 years ago, anemia, prior LAP-BAND which was transitioned to gastric sleeve and recently changed to bypass , and was previously told she has a leaky heart valve. Family history of premature CAD with her father passing away at the age of 46 of an [place]. Previously followed with Dr. Mandel in [place]. She recently underwent transition from gastric sleeve to gastric bypass in December of this year and underwent a chemical stress test prior to that which she says was normal. Presented to the emergency department with complaints of chest discomfort that she described as a squeezing pain in the center of her chest. This occurred at rest, no aggravating factors, no associated symptoms. Relieved with nitro times one. Lipitor evaluation normal CBC hemoglobin 14, normal electrolytes and renal function, normal d-dimer and troponin negative 1. EKG showed sinus rhythm with nonspecific ST-T wave abnormalities, no evidence of acute ischemia. Upon examination, patient is resting comfortably on a stretcher. No further complaints of chest discomfort. Past Medical History Past Medical History: Asthma, Diabetes Mellitus, Deep Vein Thrombosis (DVT), Fibromyalgia, GERD/Reflux, Hyperlipidemia, Rheumatoid Arthritis (RA) Additional Past Medical History / Comment(s): Anemia, IDDM type II, diabetic neuropathy bilateral legs, bilateral retinal bleeds/glaucoma, disc protusion S1/ S2 and L5, eczema, endometriosis, HPV, IBS, insomnia, leaky heart valve, migraines, myofacial pain, ocular migraines, overactive bladder, superficial blood clot R leg, falls d/t weak ankle. History of Any Multi-Drug Resistant Organisms: MRSA, Other MDRO Date of last positivie culture/infection: MDRO Source:: L leg Past Surgical History: Adenoidectomy, Bariatric Surgery, Breast Surgery, Section, Cholecystectomy, Hernia Repair, Tonsillectomy, Tubal Ligation , Uterine Ablation Additional Past Surgical History / Comment(s): Carbuncle removal, , deviated septum surgery, L breast surgery for plugged milk duct, Lap band since removed, gastric sleeve, gastric sleeve to wilver-en-y, incisiona hernia x2, R neck with lymph node bx, L axillary cyst bx, colonoscopy, D&Cs/ablation, colposcopy. Past Anesthesia/Blood Transfusion Reactions: Postoperative Nausea & Vomiting ( PONV) Smoking Status: Former smoker - Past Family History Mother Family Medical History: No Reported History Father Family Medical History: Myocardial Infarction ([place]) Additional Family Medical History / Comment(s): Father of a massive [place] following laser eye surgery. Sister(s) Family Medical History: Deep Vein Thrombosis (DVT) Medications and Allergies Home Medications Medication Instructions Recorded Confirmed Type Mirtazapine [Remeron] 15 mg PO HS 06/23/14 06/07/18 History Montelukast Sodium [Singulair] 10 mg PO HS 06/23/14 06/07/18 History clonazePAM [KlonoPIN] 0.5 mg PO HS 06/23/14 06/07/18 History Latanoprost Ophth [Xalatan 0.005%] 1 drops BOTH EYES HS 07/28/17 06/07/18 History Omalizumab [Xolair] 300 mg SQ Q28D 12/01/17 06/07/18 History Insulin Glargine [Lantus] 40 unit SQ HS 12/29/17 06/07/18 History Rivaroxaban [Xarelto] 10 mg PO HS 03/24/18 06/07/18 History ALPRAZolam [Xanax] 0.25 mg PO DAILY PRN 06/07/18 06/07/18 History Acyclovir 400 mg PO BID PRN 06/07/18 06/07/18 History Albuterol Inhaler [Ventolin Hfa 1 - 2 puff INHALATION RT-Q6H PRN 06/07/18 History Inhaler] Atorvastatin [Lipitor] 80 mg PO HS 06/07/18 06/07/18 History Biotin 5 mg PO DAILY 06/07/18 06/07/18 History Budesonide [Pulmicort Flexhaler] 2 puff INHALATION RT-BID 06/07/18 06/07/18 History Calcium Citrate 500 mg PO DAILY 06/07/18 06/07/18 History Cholecalciferol [Vitamin D3] 5,000 unit PO DAILY 06/07/18 06/07/18 History Clobetasol 0.05% Soln 1 applic TOPICAL BID PRN 06/07/18 06/07/18 History Cyanocobalamin (Vitamin B-12) 1,000 mcg PO DAILY 06/07/18 06/07/18 History [Vitamin B-12] Cyclobenzaprine [Flexeril] 5 - 10 mg PO HS 06/07/18 06/07/18 History Fluconazole [Diflucan] 100 mg PO DAILY PRN 06/07/18 06/07/18 History Gabapentin 800 mg PO BID 06/07/18 06/07/18 History HYDROcodone/APAP 5-325MG [[place] 1 - 2 tab PO Q4H PRN 06/07/18 06/07/18 History 5-325] Hydrochlorothiazide [Hydrodiuril] 12.5 mg PO DAILY PRN 06/07/18 06/07/18 History INSULIN LISPRO (humaLOG) [humaLOG] See Protocol SQ ACHS 06/07/18 06/07/18 History Ketoconazole 2% Shampoo [Nizoral] 1 applic TOPICAL Q3D PRN 06/07/18 06/07/18 History Mirabegron [Myrbetriq] 25 mg PO DAILY 06/07/18 06/07/18 History Ondansetron [Zofran ODT] 4 mg PO Q6H PRN 06/07/18 06/07/18 History Pedi Multivit No.25/Folic Acid 300 mcg PO BID 06/07/18 06/07/18 History [Flintstones Multivit Chew Tab] Penicillin V Potassium [Pen Vee K] 500 mg PO Q6H 06/07/18 06/07/18 History Phenazopyridine [Pyridium] 200 mg PO TID PRN 06/07/18 06/07/18 History Vitamin B Complex 1 cap PO DAILY 06/07/18 06/07/18 History predniSONE 10 mg PO DAILY PRN 06/07/18 06/07/18 History predniSONE See Taper PO DAILY 06/07/18 06/07/18 History Allergies Allergy/AdvReac Type Severity Reaction Status Date / Time cefazolin Allergy Unknown Verified 06/07/18 07:28 erythromycin base Allergy TOLD BY Verified 06/07/18 07:28 NOT TO TAKE -GASTRIC SLEEVE ibuprofen Allergy HISTORY OF Verified 06/07/18 07:28 GASTRIC SLEEVE-NOT TO TAKE PER " sumatriptan [From Imitrex] Allergy AGITATION,H Verified 06/07/18 07:28 ALLUCINATIO NS sumatriptan succinate Allergy Hallucinati Verified 06/07/18 07:28 [From Imitrex] ons topiramate [From Topamax] Allergy Hallucinati Verified 06/07/18 07:28 ons vancomycin Allergy RED MAN Verified 06/07/18 07:28 SYNDROME,SHORTNESS OF BREATH benzoperoxide Allergy Rash/Hives Uncoded 05/19/18 09:02 Physical Exam Vitals: Vital Signs Pulse Resp BP Pulse Ox 06/07/18 07:36 75 16 128/90 97 06/07/18 06:54 70 128/90 100 06/07/18 06:08 68 16 118/68 100 06/07/18 06:01 99 06/07/18 04:52 67 16 143/82 99 Intake and Output 06/06/18 06/07/18 06/07/18 22:59 06:59 14:59 Other: Weight 85.3 kg PHYSICAL EXAMINATION: HEENT: Head is atraumatic, normocephalic. Pupils equal, round. Neck is supple. There is no elevated jugular venous pressure. HEART EXAMINATION: Heart sounds regular, S1 and S2 normal. No murmur or gallop heard. CHEST EXAMINATION: Lungs are clear to auscultation and precussion. No chest wall tenderness is noted on palpation or with deep breathing. ABDOMEN: Soft, nontender. Bowel sounds are heard. No organomegaly noted. EXTREMITIES: 2+ peripheral pulses with no evidence of peripheral edema and no calf tenderness noted. NEUROLOGIC patient is awake, alert and oriented x3. . Results 06/07/18 04:52 06/07/18 04:52 Cardiac Enzymes 06/07/18 06/07/18 Range/Units 04:52 04:52 AST 67 H (14-36) U/L CK-MB (CK-2) 0.4 (0.0-2.4) ng/mL Troponin I <0.012 (0.000-0.034) ng/mL Coagulation 06/07/18 Range/Units 04:52 PT 10.7 (9.0-12.0) sec APTT 26.0 (22.0-30.0) sec CBC 06/07/18 Range/Units 04:52 WBC 6.9 (3.8-10.6) k/uL RBC 4.77 (3.80-5.40) m/uL Hgb 14.0 (11.4-16.0) gm/dL Hct 39.7 (34.0-46.0) % Plt Count 292 (150-450) k/uL Comprehensive Metabolic Panel 06/07/18 Range/Units 04:52 Sodium 139 (137-145) mmol/L Potassium 3.7 (3.5-5.1) mmol/L Chloride 103 (98-107) mmol/L Carbon Dioxide 29 (22-30) mmol/L BUN 10 (7-17) mg/dL Creatinine 0.58 (0.52-1.04) mg/dL Glucose 195 H (74-99) mg/dL Calcium 9.0 (8.4-10.2) mg/dL AST 67 H (14-36) U/L ALT 57 H (9-52) U/L Alkaline Phosphatase 90 (38-126) U/L Total Protein 7.2 (6.3-8.2) g/dL Albumin 3.9 (3.5-5.0) g/dL Current Medications Generic Name Dose Route Start Last Admin Trade Name Freq PRN Reason Stop Dose Admin Acetaminophen 650 mg 06/07/18 06:06 Tylenol Tab PO Q6HR PRN Mild Pain or Fever > 100.5 Hydrocodone Bitart/Acetaminophen 1 each 06/07/18 08:30 [place] 5-325 PO Q4H PRN Moderate Pain Albuterol Sulfate 2.5 mg 06/07/18 08:30 Ventolin Nebulized INHALATION RT-Q6H PRN Shortness Of Breath Alprazolam 0.25 mg 06/07/18 08:30 Xanax PO DAILY PRN Anxiety Cholecalciferol 5,000 unit 06/07/18 09:00 Vitamin D3 PO DAILY LEEANN Clonazepam 0.5 mg 06/07/18 21:00 Klonopin PO HS LEEANN Famotidine 20 mg 06/07/18 09:00 06/07/18 08:41 Pepcid PO 20 mg BID LEEANN Administration Fluticasone Propionate 1 puff 06/07/18 20:00 Flovent 110 Mcg Inhaler INHALATION RT-BID LEEANN Gabapentin 800 mg 06/07/18 09:00 Neurontin PO BID LEEANN Hydrochlorothiazide 12.5 mg 06/07/18 08:30 Hydrodiuril PO DAILY PRN Edema Hydromorphone HCl 0.5 mg 06/07/18 06:09 Dilaudid IVP Q3HR PRN Moderate Pain Insulin Aspart 0 unit 06/07/18 12:30 Novolog SQ ACHS LEEANN Protocol Insulin Detemir 20 unit 06/07/18 21:00 Levemir SQ HS LEEANN Latanoprost 1 drops 06/07/18 21:00 Xalatan 0.005% BOTH EYES HS LEEANN Mirtazapine 15 mg 06/07/18 21:00 Remeron PO HS LEEANN Montelukast Sodium 10 mg 06/07/18 21:00 Singulair PO HS LEEANN Naloxone HCl 0.2 mg 06/07/18 06:06 Narcan IV Q2M PRN Opioid Reversal Nitroglycerin 0.4 mg 06/07/18 06:08 Nitrostat SUBLINGUAL Q5M PRN Chest Pain Myrbetriq ( 25 mg 06/07/18 09:00 Mirabegron) 25 Mg PO DAILY [facility] Ondansetron HCl 4 mg 06/07/18 08:30 Zofran Odt PO Q6H PRN Nausea Pravastatin Sodium 80 mg 06/07/18 21:00 Pravachol PO HS LEEANN Rivaroxaban 10 mg 06/07/18 09:00 06/07/18 08:41 Xarelto PO 10 mg DAILY [facility] Administration Intake and Output 06/06/18 06/07/18 06/07/18 22:59 06:59 14:59 Other: Weight 85.3 kg 06/07/18 04:52 06/07/18 04:52 Assessment and Plan Assessment: #1 symptoms of chest pain, troponins negative x1, negative stress test in December according to the patient #2 diabetes #3 hyperlipidemia #4 prior smoker #5 family history of premature CAD Plan: From cardiology's perspective, we will obtain a 2-D echo with Doppler. We will continue to follow the troponins and obtain records from [facility] including stress test done in December. Further recommendations to follow. FIELD MARKETING DIRECTOR note has been reviewed, I agree with a documented findings and plan of care. Patient was seen and examined.
--- NOTE | 2018-06-07 10:19 | P.HPIM ---
History of Present Illness H&P Date: 06/07/18 Chief Complaint: chest pain This is a 42-year-old female patient of Dr. Fernando. Patient presented with complaints of chest pain. Patient stated she suddenly felt a sharp pain that radiated to her neck and left arm. Patient then proceeded to call EMS in which they gave nitro and symptoms relieved. Patient is still complaining of a sharp chest pain. Patient has a known past medical history of asthma, diabetes, diagnosis of superficial DVT in right leg in which she is on Zaroxolyn by her PCP, fibromyalgia, GERD, hyperlipidemia, rheumatoid arthritis, anemia, retinal bleed/gluacoma, disc protrusion, endometriosis, HPV, IBS, insomnia, leaky heart valve, migraines, overactive bladder, gastric sleeve Kemar-en-Y in December of this year and recent root canal in which she is currently on her antibiotic. Patient states she is currently not on her prednisone per the root canal she had finished the medication. Acyclovir and Diflucan also not currently taking per patient. Patient does report that both her parents have significant cardiac history. Patient is also complaining of pain and increased swelling to the left leg. Patient requesting venous Doppler to rule out DVT at this time. Chest x-ray completed showing no acute findings or Substantial change. EKG completed showing normal sinus rhythm. Minimal voltage criteria for LVH, may be normal variant nonspecific T-wave abnormality. Initial troponin negative. Cardiology services have been consulted. Review of Systems Please refer to HPI otherwise unremarkable Past Medical History Past Medical History: Asthma, Diabetes Mellitus, Deep Vein Thrombosis (DVT), Fibromyalgia, GERD/Reflux, Hyperlipidemia, Rheumatoid Arthritis (RA) Additional Past Medical History / Comment(s): Anemia, IDDM type II, diabetic neuropathy bilateral legs, bilateral retinal bleeds/glaucoma, disc protusion S1/ S2 and L5, eczema, endometriosis, HPV, IBS, insomnia, leaky heart valve, migraines, myofacial pain, ocular migraines, overactive bladder, superficial blood clot R leg, falls d/t weak ankle. History of Any Multi-Drug Resistant Organisms: MRSA, Other MDRO Date of last positivie culture/infection: MDRO Source:: L leg Past Surgical History: Adenoidectomy, Bariatric Surgery, Breast Surgery, Section, Cholecystectomy, Hernia Repair, Tonsillectomy, Tubal Ligation , Uterine Ablation Additional Past Surgical History / Comment(s): Carbuncle removal, , deviated septum surgery, L breast surgery for plugged milk duct, Lap band since removed, gastric sleeve, gastric sleeve to kemar-en-y, incisiona hernia x2, R neck with lymph node bx, L axillary cyst bx, colonoscopy, D&Cs/ablation, colposcopy. Past Anesthesia/Blood Transfusion Reactions: Postoperative Nausea & Vomiting ( PONV) Smoking Status: Former smoker - Past Family History Mother Family Medical History: No Reported History Father Family Medical History: Myocardial Infarction ([place]) Additional Family Medical History / Comment(s): Father of a massive [place] following laser eye surgery. Sister(s) Family Medical History: Deep Vein Thrombosis (DVT) Medications and Allergies Home Medications Medication Instructions Recorded Confirmed Type Mirtazapine [Remeron] 15 mg PO HS 06/23/14 06/07/18 History Montelukast Sodium [Singulair] 10 mg PO HS 06/23/14 06/07/18 History clonazePAM [KlonoPIN] 0.5 mg PO HS 06/23/14 06/07/18 History Latanoprost Ophth [Xalatan 0.005%] 1 drops BOTH EYES HS 07/28/17 06/07/18 History Omalizumab [Xolair] 300 mg SQ Q28D 12/01/17 06/07/18 History Insulin Glargine [Lantus] 40 unit SQ HS 12/29/17 06/07/18 History Rivaroxaban [Xarelto] 10 mg PO HS 03/24/18 06/07/18 History ALPRAZolam [Xanax] 0.25 mg PO DAILY PRN 06/07/18 06/07/18 History Acyclovir 400 mg PO BID PRN 06/07/18 06/07/18 History Albuterol Inhaler [Ventolin Hfa 1 - 2 puff INHALATION RT-Q6H PRN 06/07/18 History Inhaler] Atorvastatin [Lipitor] 80 mg PO HS 06/07/18 06/07/18 History Biotin 5 mg PO DAILY 06/07/18 06/07/18 History Budesonide [Pulmicort Flexhaler] 2 puff INHALATION RT-BID 06/07/18 06/07/18 History Calcium Citrate 500 mg PO DAILY 06/07/18 06/07/18 History Cholecalciferol [Vitamin D3] 5,000 unit PO DAILY 06/07/18 06/07/18 History Clobetasol 0.05% Soln 1 applic TOPICAL BID PRN 06/07/18 06/07/18 History Cyanocobalamin (Vitamin B-12) 1,000 mcg PO DAILY 06/07/18 06/07/18 History [Vitamin B-12] Cyclobenzaprine [Flexeril] 5 - 10 mg PO HS 06/07/18 06/07/18 History Fluconazole [Diflucan] 100 mg PO DAILY PRN 06/07/18 06/07/18 History Gabapentin 800 mg PO BID 06/07/18 06/07/18 History HYDROcodone/APAP 5-325MG [[place] 1 - 2 tab PO Q4H PRN 06/07/18 06/07/18 History 5-325] Hydrochlorothiazide [Hydrodiuril] 12.5 mg PO DAILY PRN 06/07/18 06/07/18 History INSULIN LISPRO (humaLOG) [humaLOG] See Protocol SQ ACHS 06/07/18 06/07/18 History Ketoconazole 2% Shampoo [Nizoral] 1 applic TOPICAL Q3D PRN 06/07/18 06/07/18 History Mirabegron [Myrbetriq] 25 mg PO DAILY 06/07/18 06/07/18 History Ondansetron [Zofran ODT] 4 mg PO Q6H PRN 06/07/18 06/07/18 History Pedi Multivit No.25/Folic Acid 300 mcg PO BID 06/07/18 06/07/18 History [Flintstones Multivit Chew Tab] Penicillin V Potassium [Pen Vee K] 500 mg PO Q6H 06/07/18 06/07/18 History Phenazopyridine [Pyridium] 200 mg PO TID PRN 06/07/18 06/07/18 History Vitamin B Complex 1 cap PO DAILY 06/07/18 06/07/18 History predniSONE 10 mg PO DAILY PRN 06/07/18 06/07/18 History predniSONE See Taper PO DAILY 06/07/18 06/07/18 History Allergies Allergy/AdvReac Type Severity Reaction Status Date / Time cefazolin Allergy Unknown Verified 06/07/18 07:28 erythromycin base Allergy TOLD BY DR Verified 06/07/18 07:28 NOT TO TAKE -GASTRIC SLEEVE ibuprofen Allergy HISTORY OF Verified 06/07/18 07:28 GASTRIC SLEEVE-NOT TO TAKE PER DR" sumatriptan [From Imitrex] Allergy AGITATION,H Verified 06/07/18 07:28 ALLUCINATIO NS sumatriptan succinate Allergy Hallucinati Verified 06/07/18 07:28 [From Imitrex] ons topiramate [From Topamax] Allergy Hallucinati Verified 06/07/18 07:28 ons vancomycin Allergy RED MAN Verified 06/07/18 07:28 SYNDROME,SHORTNESS OF BREATH benzoperoxide Allergy Rash/Hives Uncoded 05/19/18 09:02 Physical Exam Vitals: Vital Signs Pulse Resp BP Pulse Ox 06/07/18 07:36 75 16 128/90 97 06/07/18 06:54 70 128/90 100 06/07/18 06:08 68 16 118/68 100 06/07/18 06:01 99 06/07/18 04:52 67 16 143/82 99 Intake and Output 06/06/18 06/07/18 06/07/18 22:59 06:59 14:59 Other: Weight 85.3 kg Head normocephalic Neck supple Lungs clear to auscultation bilaterally no wheezing or crackles Heart regular rate and rhythm S1-S2, no rub or gallop Abdomen is soft nontender nondistended positive bowel sounds no hepatosplenomegaly Extremities +1 bilateral edema to lower extremities Neuro alert and orientated to 3 Results CBC & Chem 7: 06/07/18 04:52 06/07/18 04:52 Labs: Abnormal Lab Results - Last 24 Hours (Table) 06/07/18 Range/Units 04:52 Glucose 195 H (74-99) mg/dL AST 67 H (14-36) U/L ALT 57 H (9-52) U/L Thrombosis Risk Factor Assmnt - Choose All That Apply Any of the Below Risk Factors Present?: Yes Each Factor Represents 1 point: Age 41-60 years, Obesity (BMI >25) Other Risk Factors: Yes Each Risk Factor Represents 3 Points: Family history of DVT/PE, History of DVT/ PE Other congenital or acquired thrombophilia - If yes, enter type in comment: No Thrombosis Risk Factor Assessment Total Risk Factor Score: 8 Thrombosis Risk Factor Assessment Level: High Risk Assessment and Plan Assessment: 1. Chest pain. Initial troponin negative. EKG completed showing normal sinus rhythm. Minimal voltage criteria for LVH, maybe normal variant. Nonspecific T- wave abnormality and abnormal EKG. X-ray completed showing no acute findings or substantial change. Cardiology services have been consulted. 2. Left leg pain and increased edema. Patient requesting venous Doppler to rule out DVT. 3. History of superficial blood clot in right leg patient states approximately 3 months ago started on Xarelto per primary care provider 4. History of diabetes mellitus home insulin resumed along with sliding scale coverage 5. Elevated liver enzymes. AST 67 and 57. Lipitor to be held 6. Recent root canal. Patient states she has been on penicillin VK per her dentist. Patient has completed her prednisone. 7. Gastric sleeve to rouz-en-y In December 2017 8. History of asthma 9. History of fibromyalgia 10. History of GERD 11. History of hyperlipidemia. 12. History of rheumatoid arthritis 13. History of anxiety bipolar and PTSD 14. Patient states she has a history of a leaky heart valve. 2-D echo has been ordered per cardiology services Time with Patient: Greater than 30 (Greater than 60% of the total time spent in counseling and coordination of care. I performed an examination of the patient and discussed their management with the Nurse Practitioner. I have reviewed the Nurse Practitioner's notes and agree with the documented findings and plan of care)
[2018-06-07] MEDS: CHOLECALCIFEROL 1,000 UNIT TAB PO SCH (10:39)
[2018-06-07] MEDS: GABAPENTIN 400 MG CAP PO SCH ×2 (10:40→20:08)
--- NOTE | 2018-06-07 10:57 | US ---
EXAMINATION TYPE: US venous doppler duplex LE DATE OF EXAM: 06/07/2018 10:29 AM COMPARISON: US CLINICAL HISTORY: rule out DVT. bilateral edema SIDE PERFORMED: Bilateral TECHNIQUE: The lower extremity deep venous system is examined utilizing real time linear array sonog leanna with graded compression, doppler sonography and color-flow sonography. VESSELS IMAGED: External Iliac Vein (EIV) Common Femoral Vein Deep Femoral Vein Greater Saphenous Vein * Femoral Vein Popliteal Vein Small Saphenous Vein * Proximal Calf Veins (* superficial vessels) Right Leg: Negative for DVT Left Leg: Negative for DVT IMPRESSION: 1. Bilateral lower extremity ultrasound negative for deep venous thrombosis.
[2018-06-07 12:11] LABS: Glucose,Whole Blood 182 mg/dL (75-99)
[2018-06-07] MEDS: INSULIN ASPART 100 UNIT/ML 1 ML 10 ML VIAL SQ SCH ×3 (12:39→20:04)
[2018-06-07 13:15] LABS: Creatine Kinase 43 U/L (30-135)
[2018-06-07 13:28] LABS: Creatine Kinase MB 0.3 ng/mL (0.0-2.4); Troponin I <0.012 ng/mL (0.000-0.034)
[2018-06-07] MEDS: PENICILLIN V POTASSIUM 250 MG TAB PO SCH ×2 (15:19→17:47)
[2018-06-07 16:41] LABS: Glucose,Whole Blood 193 mg/dL (75-99)
[2018-06-07 18:29] LABS: Creatine Kinase 39 U/L (30-135)
[2018-06-07 18:41] LABS: Creatine Kinase MB <0.2 ng/mL (0.0-2.4); Troponin I <0.012 ng/mL (0.000-0.034)
--- NOTE | 2018-06-07 18:57 | ECHOF ---
Referral Reason:Chest pain MEASUREMENTS -------- HEIGHT: 172.7 cm WEIGHT: 85.3 kg BP: 128/90 RVIDd: 2.9 cm (< 3.3) IVSd: 1.1 cm (0.6 - 1.1) LVIDd: 4.3 cm (3.9 - 5.3) LVPWd: 1.1 cm (0.6 - 1.1) IVSs: 1.5 cm LVIDs: 2.7 cm LVPWs: 1.7 cm LA Diam: 3.6 cm (2.7 - 3.8) LAESV Index (A-L): 15.58 ml/m Ao Diam: 2.9 cm (2.0 - 3.7) AV Cusp: 1.9 cm (1.5 - 2.6) MV EXCURSION: 13.059 mm (> 18.000) MV EF SLOPE: 83 mm/s (70 - 150) EPSS: 1.0 cm MV E Carlos: 1.09 m/s MV DecT: 325 ms MV A Carlos: 0.98 m/s MV E/A Ratio: 1.12 RAP: 5.00 mmHg RVSP: 26.93 mmHg FINDINGS -------- Sinus rhythm. This was a technically good study. The left ventricular size is normal. There is borderline concentric left ventricular hypertrophy. Overall left ventricular systolic function is normal with, an EF between 55 - 60 %. The right ventricle is normal in size. Normal LA size by volume 22+/-6 ml/m2. The right atrium is normal in size. The aortic valve is trileaflet and appears structurally normal. The mitral valve is normal. Mild tricuspid regurgitation present. Right ventricular systolic pressure is normal at < 35 mmHg. There is no pulmonic regurgitation present. The aortic root size is normal. Normal inferior vena cava with normal inspiratory collapse consistent with estimated right atrial pre ssure of 5 mmHg. The inferior vena cava is mildly dilated. There is no pericardial effusion. CONCLUSIONS -------- 1. Sinus rhythm. 2. This was a technically good study. 3. The left ventricular size is normal. 4. There is borderline concentric left ventricular hypertrophy. 5. Overall left ventricular systolic function is normal with, an EF between 55 - 60 %. 6. Normal LA size by volume 22+/-6 ml/m2. 7. The aortic valve is trileaflet and appears structurally normal. 8. The mitral valve is normal. 9. Mild tricuspid regurgitation present. 10. Right ventricular systolic pressure is normal at < 35 mmHg. 11. There is no pulmonic regurgitation present. 12. The aortic root size is normal. 13. Normal inferior vena cava with normal inspiratory collapse consistent with estimated right atrial pressure of 5 mmHg. 14. The inferior vena cava is mildly dilated. 15. There is no pericardial effusion. OPERATING ROOM MANAGER: Marti Delaney RDCS
[2018-06-07] MEDS: FLUTICASONE 110 MCG INHALER INHALATION SCH (19:39)
[2018-06-07 20:03] LABS: Glucose,Whole Blood 115 mg/dL (75-99)
[2018-06-07] MEDS: clonazePAM 0.5 MG TAB PO SCH (20:08)
[2018-06-07] MEDS: MONTELUKAST 10 MG TAB PO SCH (20:08)
[2018-06-07] MEDS: INSULIN DETEMIR 100 UNIT/ML 10 ML VIAL SQ SCH (20:09)
[2018-06-07] MEDS: LATANOPROST 0.005% OPHTH DROPS 2.5 ML BTL BOTH EYES SCH (20:46)
[2018-06-07] MEDS: MIRTAZAPINE 15 MG TAB PO SCH (20:46)
[2018-06-07] MEDS ORDERED: PRAVASTATIN SODIUM 80 MG TAB PO SCH (21:00)
[2018-06-08] MEDS: PENICILLIN V POTASSIUM 250 MG TAB PO SCH ×3 (00:28→12:07)
[2018-06-08 06:07] LABS: Basophils % (A) 0 %; Eosinophils # (A) 0.2 k/uL (0-0.7); Eosinophils % (A) 2 %; HCT 40.8 % (34.0-46.0); HGB 13.9 gm/dL (11.4-16.0); Lymphocytes # (A) 1.1 k/uL (1.0-4.8); Lymphocytes % (A) 13 %; MCH 28.5 pg (25.0-35.0); MCHC 34.1 g/dL (31.0-37.0); MCV 83.6 fL (80.0-100.0); Mean Platelet Volume 6.6; Monocytes # (A) 0.3 k/uL (0-1.0); Monocytes % (A) 4 %; Neutrophils # (A) 6.2 k/uL (1.3-7.7); Neutrophils % (A) 79 %; Platelet Count 317 k/uL (150-450); RBC 4.87 m/uL (3.80-5.40); RDW 12.5 % (11.5-15.5); WBC 7.9 k/uL (3.8-10.6)
[2018-06-08 06:22] LABS: ALT 53 U/L (9-52); AST 25 U/L (14-36); Albumin 3.6 g/dL (3.5-5.0); Alkaline Phosphatase 92 U/L (38-126); Anion Gap 7 mmol/L; Blood Urea Nitrogen 14 mg/dL (7-17); Calcium 9.1 mg/dL (8.4-10.2); Carbon Dioxide 26 mmol/L (22-30); Chloride 105 mmol/L (98-107); Glucose 152 mg/dL (74-99); Potassium 4.1 mmol/L (3.5-5.1); Sodium 138 mmol/L (137-145); Total Bilirubin 1.8 mg/dL (0.2-1.3); Total Protein 6.8 g/dL (6.3-8.2)
[2018-06-08 06:40] LABS: Glucose,Whole Blood 129 mg/dL (75-99)
[2018-06-08 07:07] VITALS: RESP 18
[2018-06-08] MEDS: FLUTICASONE 110 MCG INHALER INHALATION SCH ×2 (07:50→20:09)
[2018-06-08] MEDS: INSULIN ASPART 100 UNIT/ML 1 ML 10 ML VIAL SQ SCH ×4 (08:18→21:17)
[2018-06-08] MEDS: RIVAROXABAN 10 MG TAB PO SCH (08:31)
[2018-06-08] MEDS: FAMOTIDINE 20 MG TAB PO SCH ×2 (08:31→21:11)
[2018-06-08] MEDS: GABAPENTIN 400 MG CAP PO SCH ×2 (08:31→21:11)
[2018-06-08] MEDS: CHOLECALCIFEROL 1,000 UNIT TAB PO SCH (08:31)
--- NOTE | 2018-06-08 08:32 | US ---
EXAMINATION TYPE: US liver DATE OF EXAM: 06/08/2018 COMPARISON: CT abdomen and pelvis July 02, 2017 CLINICAL HISTORY: elevated liver enzymes. GB removed x 2015, gastric sleeve, Diarrhea EXAM MEASUREMENTS: Liver Length: 18.2 cm CBD: 0.5 cm CHD: 0.5 cm Right Kidney: 11.3 x 4.6 x 4.6 cm Pancreas: Appears heterogeneous in appearance Liver: Prominent right hepatic lobe Gallbladder: Surgically absent Evidence for sonographic Sung's sign: neg CBD: wnl CHD: wnl Right Kidney: wnl Gallbladder noted surgically absent. Heterogeneous hyperechoic appearance of liver is present. Evalua tion for focal masses is suboptimal due to the heterogeneity. No suspicious ductal dilatation is seen . IMPRESSION: Heterogeneous hyperechoic appearance of liver is felt to be on basis of diffuse fatty inf iltration.
--- NOTE | 2018-06-08 08:46 | PN ---
PROGRESS NOTE Mrs. Bergeron is a 42-year-old female who presented with chest discomfort of atypical nature. She is complaining predominantly at this time of diarrhea, that is quite severe and repetitive. She has mild nausea. No vomiting. She has no significant chest pain. I reviewed the results of the stress test that was obtained at [facility] recently and it was unremarkable with no evidence of stress-induced ischemia. She had an echocardiogram done yesterday, revealed preserved ventricular size and systolic function with mild tricuspid regurgitation. She continues to be at this time on aspirin, hydrochlorothiazide, insulin, Remeron, Xarelto 10 mg daily. PHYSICAL EXAMINATION: Blood pressure 103/60 with a heart in the 70s. LUNGS: Clear. HEART: Regular rate and rhythm, S1, S2. No S3. No rub. ABDOMEN: Soft, nontender, positive bowel sounds. EXTREMITIES: No edema. LAB DATA: Lab data revealed a C. difficile negative. Troponin less than 0.012. BUN and creatinine 14 and 0.64. Hemoglobin is 13.9. IMPRESSION: 1. Chest discomfort, atypical for ischemic heart disease. 2. Diarrhea and nausea. Workup in progress. RECOMMENDATION: From the cardiac standpoint, I see no evidence of cardiac abnormality. Will see on an as-needed basis. Please feel free to call us for any question. MMODL / IJN: [id number] /
--- NOTE | 2018-06-08 11:12 | P.PN ---
Subjective Progress Note Date: 06/08/18 This is a 42-year-old female patient of Dr. Fernando. Patient presented with complaints of chest pain. Patient stated she suddenly felt a sharp pain that radiated to her neck and left arm. Patient then proceeded to call EMS in which they gave nitro and symptoms relieved. Patient is still complaining of a sharp chest pain. Patient has a known past medical history of asthma, diabetes, diagnosis of superficial DVT in right leg in which she is on Zaroxolyn by her PCP, fibromyalgia, GERD, hyperlipidemia, rheumatoid arthritis, anemia, retinal bleed/gluacoma, disc protrusion, endometriosis, HPV, IBS, insomnia, leaky heart valve, migraines, overactive bladder, gastric sleeve Kemar-en-Y in December of this year and recent root canal in which she is currently on her antibiotic. Patient states she is currently not on her prednisone per the root canal she had finished the medication. Acyclovir and Diflucan also not currently taking per patient. Patient does report that both her parents have significant cardiac history. Patient is also complaining of pain and increased swelling to the left leg. Patient requesting venous Doppler to rule out DVT at this time. Chest x-ray completed showing no acute findings or Substantial change. EKG completed showing normal sinus rhythm. Minimal voltage criteria for LVH, may be normal variant nonspecific T-wave abnormality. Initial troponin negative. Cardiology services have been consulted. On 06/08/2018 patient is currently resting in bed. Patient is complaining now that she has abdominal pain and diarrhea. C. diff negative. Will consult GI services at this time. Patient also complaining of sores in mouth and mouth soreness to recent root canal patient remains on Pen-Vee K. Cardiology services has cleared patient. At this time patient denies any chest pain or shortness of breath. Objective - Vital Signs Vital signs: Vital Signs Temp 97.6 F 06/08/18 07:06 Pulse 74 06/08/18 07:06 Resp 18 06/08/18 07:06 BP 98/68 06/08/18 07:06 Pulse Ox 98 06/08/18 07:06 Intake & Output 06/07/18 06/08/18 06/08/18 18:59 06:59 18:59 Intake Total 460 240 Balance 460 240 Weight 86.5 kg Intake: Oral 360 240 Other 100 Other: Voiding Method Toilet Toilet Toilet # Voids 4 # Bowel Movements 5 - Exam Head normocephalic Neck supple Lungs clear to auscultation bilaterally no wheezing or crackles Heart regular rate and rhythm S1-S2, no rub or gallop Abdomen is soft nontender nondistended positive bowel sounds no hepatosplenomegaly Extremities +1 bilateral edema to lower extremities Neuro alert and orientated to 3 - Labs CBC & Chem 7: 06/08/18 05:51 06/08/18 05:51 Labs: Abnormal Lab Results - Last 24 Hours (Table) 06/07/18 06/07/18 06/07/18 Range/Units 11:47 16:39 20:01 Glucose (74-99) mg/dL POC Glucose (mg/dL) 182 H 193 H 115 H (75-99) mg/dL Total Bilirubin (0.2-1.3) mg/dL ALT (9-52) U/L 06/08/18 06/08/18 Range/Units 05:51 06:38 Glucose 152 H (74-99) mg/dL POC Glucose (mg/dL) 129 H (75-99) mg/dL Total Bilirubin 1.8 H (0.2-1.3) mg/dL ALT 53 H (9-52) U/L Microbiology - Last 24 Hours (Table) 06/07/18 20:27 Stool Culture - Preliminary Stool Assessment and Plan Assessment: 1. Chest pain. Initial troponin negative. EKG completed showing normal sinus rhythm. Minimal voltage criteria for LVH, maybe normal variant. Nonspecific T- wave abnormality and abnormal EKG. X-ray completed showing no acute findings or substantial change. Cardiology services have been consulted. 2-D echo completed showing an EF of 55-60%. Per cardiology services chest discomfort, atypical for ischemic heart disease. Cardiology standpoint no evidence of cardiac abnormality seen. cardiology services have cleared patient 2. Left leg pain and increased edema. Patient requesting venous Doppler to rule out DVT. Venous Doppler completed showing negative for DVT in bilateral lower extremities. 3. History of superficial blood clot in right leg patient states approximately 3 months ago started on Xarelto per primary care provider 4. History of diabetes mellitus home insulin resumed along with sliding scale coverage 5. Elevated liver enzymes. AST 67 and 57. Total bili 1.8. Liver ultrasound completed showing heterogenic hyperechoic appearance of the liver is felt to be on the basis of diffuse fatty infiltration. GI services have been consulted 6. Recent root canal. Patient states she has been on penicillin VK per her dentist. Patient has completed her prednisone. 7. Gastric sleeve to rouz-en-y In December 2017 8. History of asthma 9. History of fibromyalgia 10. History of GERD 11. History of hyperlipidemia. 12. History of rheumatoid arthritis 13. History of anxiety bipolar and PTSD 14. Patient states she has a history of a leaky heart valve. 2-D echo completed and reviewed by sales training manager 15. Diarrhea. C. diff negative. Amylase and lipase within normal limits. GI services have been consulted 16. Sores in mouth. DVT prophylaxis xarelato. GI prophylaxis Protonix I performed an examination of the patient and discussed their management with the Nurse Practitioner. I have reviewed the Nurse Practitioner's notes and agree with the documented findings and plan of care
[2018-06-08 11:41] LABS: Glucose,Whole Blood 196 mg/dL (75-99)
[2018-06-08 12:52] VITALS: BMI 29.0
[2018-06-08] MEDS ORDERED: LOPERAMIDE 2 MG CAP PO STA (15:07)
[2018-06-08] MEDS ORDERED: LOPERAMIDE 2 MG CAP PO PRN (15:07)
--- NOTE | 2018-06-08 15:13 | P.CONS ---
History of Present Illness - Reason for Consult Consult date: 06/08/18 Diarrhea elevated liver enzymes Requesting physician: Ankita Crowe - Chief Complaint Chest pain - History of Present Illness 42-year-old female with a past medical history of cholecystectomy, gastric sleeve followed by Kemar-en-Y gastric bypass December 2017, superficial blood clot in the right leg maintained on xarelto admitted with acute chest pain. Consultation requested for diarrhea and elevated liver enzymes. Last around 8 PM she developed explosive nonbloody diarrhea has gone more than 20 times since last night. Mild bilateral lower abdominal discomfort. No history of diarrheal illnesses. She has been on antibiotics over the last week secondary to a root canal week ago Thursday. C. diff negative. Total bilirubin 0.7-1.8. AST 25-67. ALT 53-57. AP 90-92. Liver ultrasound heterogeneous hyperechoic appearance the liver felt to be in the bases of diffuse fatty infiltration. History of hepatitis or liver disorders. Review of Systems Constitutional: Denies fever, chills, sweats, weight gain, or loss. HEENT: Negative for migraines, blurred vision or loss, earaches, drainage, tinnitus, oral mucosal lesions, dysphagia, or odynophagia. CARDIAC: Admitted with chest pain denies, arrhythmias, or palpitation. RESPIRATORY: Negative for shortness of breath, hemoptysis, cough, or sputum production. GI: See HPI for pertinent findings. : Negative for hematuria, urgency, frequency, polyuria, or dysuria. GYNc: Denies possibility of . Negative vaginal discharge. MUSCULOSKELETAL: Negative for muscle aches, swelling, arthritis, and arthralgias. NEUROLOGIC: Negative for stroke or TIA. ENDOCRINE: Negative for thyroid problems. SKIN: Negative for rash or itching. PSYCHIATRIC: Negative history for depression and anxiety Past Medical History Past Medical History: Asthma, Diabetes Mellitus, Deep Vein Thrombosis (DVT), Fibromyalgia, GERD/Reflux, Hyperlipidemia, Rheumatoid Arthritis (RA) Additional Past Medical History / Comment(s): Anemia, IDDM type II, diabetic neuropathy bilateral legs, bilateral retinal bleeds/glaucoma, disc protusion S1/ S2 and L5, eczema, endometriosis, HPV, IBS, insomnia, leaky heart valve, migraines, myofacial pain, ocular migraines, overactive bladder, superficial blood clot R leg, falls d/t weak ankle. History of Any Multi-Drug Resistant Organisms: MRSA, Other MDRO Year Discovered:: MDRO Source:: L leg Past Surgical History: Adenoidectomy, Bariatric Surgery, Breast Surgery, Section, Cholecystectomy, Hernia Repair, Tonsillectomy, Tubal Ligation , Uterine Ablation Additional Past Surgical History / Comment(s): Carbuncle removal, , deviated septum surgery, L breast surgery for plugged milk duct, Lap band since removed, gastric sleeve, gastric sleeve to kemar-en-y, incisiona hernia x2, R neck with lymph node bx, L axillary cyst bx, colonoscopy, D&Cs/ablation, colposcopy. Past Anesthesia/Blood Transfusion Reactions: Postoperative Nausea & Vomiting ( PONV) Smoking Status: Former smoker - Past Family History Mother Family Medical History: No Reported History Father Family Medical History: Myocardial Infarction (GA) Additional Family Medical History / Comment(s): Father of a massive GA following laser eye surgery. Sister(s) Family Medical History: Deep Vein Thrombosis (DVT) Medications and Allergies Home Medications Medication Instructions Recorded Confirmed Type Mirtazapine [Remeron] 15 mg PO HS 06/23/14 06/07/18 History Montelukast Sodium [Singulair] 10 mg PO HS 06/23/14 06/07/18 History clonazePAM [KlonoPIN] 0.5 mg PO HS 06/23/14 06/07/18 History Latanoprost Ophth [Xalatan 0.005%] 1 drops BOTH EYES HS 07/28/17 06/07/18 History Omalizumab [Xolair] 300 mg SQ Q28D 12/01/17 06/07/18 History Insulin Glargine [Lantus] 40 unit SQ HS 12/29/17 06/07/18 History Rivaroxaban [Xarelto] 10 mg PO HS 03/24/18 06/07/18 History ALPRAZolam [Xanax] 0.25 mg PO DAILY PRN 06/07/18 06/07/18 History Acyclovir 400 mg PO BID PRN 06/07/18 06/07/18 History Albuterol Inhaler [Ventolin Hfa 1 - 2 puff INHALATION RT-Q6H PRN 06/07/18 History Inhaler] Atorvastatin [Lipitor] 80 mg PO HS 06/07/18 06/07/18 History Biotin 5 mg PO DAILY 06/07/18 06/07/18 History Budesonide [Pulmicort Flexhaler] 2 puff INHALATION RT-BID 06/07/18 06/07/18 History Calcium Citrate 500 mg PO DAILY 06/07/18 06/07/18 History Cholecalciferol [Vitamin D3] 5,000 unit PO DAILY 06/07/18 06/07/18 History Clobetasol 0.05% Soln 1 applic TOPICAL BID PRN 06/07/18 06/07/18 History Cyanocobalamin (Vitamin B-12) 1,000 mcg PO DAILY 06/07/18 06/07/18 History [Vitamin B-12] Cyclobenzaprine [Flexeril] 5 - 10 mg PO HS 06/07/18 06/07/18 History Fluconazole [Diflucan] 100 mg PO DAILY PRN 06/07/18 06/07/18 History Gabapentin 800 mg PO BID 06/07/18 06/07/18 History HYDROcodone/APAP 5-325MG [[place] 1 - 2 tab PO Q4H PRN 06/07/18 06/07/18 History 5-325] Hydrochlorothiazide [Hydrodiuril] 12.5 mg PO DAILY PRN 06/07/18 06/07/18 History INSULIN LISPRO (humaLOG) [humaLOG] See Protocol SQ ACHS 06/07/18 06/07/18 History Ketoconazole 2% Shampoo [Nizoral] 1 applic TOPICAL Q3D PRN 06/07/18 06/07/18 History Mirabegron [Myrbetriq] 25 mg PO DAILY 06/07/18 06/07/18 History Ondansetron [Zofran ODT] 4 mg PO Q6H PRN 06/07/18 06/07/18 History Pedi Multivit No.25/Folic Acid 300 mcg PO BID 06/07/18 06/07/18 History [Flintstones Multivit Chew Tab] Penicillin V Potassium [Pen Vee K] 500 mg PO Q6H 06/07/18 06/07/18 History Phenazopyridine [Pyridium] 200 mg PO TID PRN 06/07/18 06/07/18 History Vitamin B Complex 1 cap PO DAILY 06/07/18 06/07/18 History predniSONE 10 mg PO DAILY PRN 06/07/18 06/07/18 History predniSONE See Taper PO DAILY 06/07/18 06/07/18 History Allergies Allergy/AdvReac Type Severity Reaction Status Date / Time cefazolin Allergy Unknown Verified 06/07/18 07:28 erythromycin base Allergy TOLD BY DR Verified 06/07/18 07:28 NOT TO TAKE -GASTRIC SLEEVE ibuprofen Allergy HISTORY OF Verified 06/07/18 07:28 GASTRIC SLEEVE-NOT TO TAKE PER DR" sumatriptan [From Imitrex] Allergy AGITATION,H Verified 06/07/18 07:28 ALLUCINATIO NS sumatriptan succinate Allergy Hallucinati Verified 06/07/18 07:28 [From Imitrex] ons topiramate [From Topamax] Allergy Hallucinati Verified 06/07/18 07:28 ons vancomycin Allergy RED MAN Verified 06/07/18 07:28 SYNDROME,SHORTNESS OF BREATH benzoperoxide Allergy Rash/Hives Uncoded 05/19/18 09:02 Physical Exam Vitals: Vital Signs Temp Pulse Resp BP Pulse Ox 06/08/18 11:34 18 06/08/18 11:23 98.0 F 87 18 96/67 97 06/08/18 07:06 97.6 F 74 18 98/68 98 06/08/18 04:00 97.7 F 80 16 103/69 98 06/08/18 00:00 99 16 06/07/18 23:03 97.9 F 99 16 115/80 98 06/07/18 20:00 97 16 06/07/18 19:11 97.8 F 97 16 129/83 99 06/07/18 16:00 80 18 06/07/18 15:44 98 06/07/18 15:15 97.6 F 80 18 113/79 98 Intake and Output 06/08/18 06/08/18 06/08/18 06:59 14:59 22:59 Intake Total 760 Balance 760 Intake: Oral 660 Other 100 Other: Voiding Method Toilet Toilet # Voids 4 # Bowel Movements 5 Weight 86.5 kg General appearance: The patient is alert, oriented, in no acute distress. HET: Head is normocephalic and atraumatic. Pupils are equal and reactive. Oropharynx is clear without lesions. Neck: Supple without lymphadenopathy. Trachea midline. Heart: S1 S2. Regular rate and rhythm. Lungs: No crackles or wheezes are heard. Abdomen: Soft, very mild tenderness to the bilateral lower abdomen, nondistended with bowel sounds. No peritoneal signs. No palpable organomegaly or masses. Extremities: Normal skin color and turgor. No cyanosis, rash, ulceration, clubbing, or edema. Radial and pedal pulses are 2/4 bilaterally. Neurological: No focal deficits. Strength and sensation are grossly intact. Results CBC & Chem 7: 06/08/18 05:51 06/08/18 05:51 Labs: Abnormal Lab Results - Last 24 Hours (Table) 06/07/18 06/07/18 06/08/18 Range/Units 16:39 20:01 05:51 Glucose 152 H (74-99) mg/dL POC Glucose (mg/dL) 193 H 115 H (75-99) mg/dL Total Bilirubin 1.8 H (0.2-1.3) mg/dL ALT 53 H (9-52) U/L 06/08/18 06/08/18 Range/Units 06:38 11:39 Glucose (74-99) mg/dL POC Glucose (mg/dL) 129 H 196 H (75-99) mg/dL Total Bilirubin (0.2-1.3) mg/dL ALT (9-52) U/L Microbiology - Last 24 Hours (Table) 06/07/18 20:27 Stool Culture - Preliminary Stool US - abdomen: report reviewed (Dr. Crane) Assessment and Plan (1) Diarrhea Narrative/Plan: Nonbloody diarrhea acute onset less than 24 hours nonspecific possible self limiting infectious colitis possible gastroenteritis possible medication related. Clostridium difficile testing negative. Current Visit: Yes Status: Acute Code(s): R19.7 - DIARRHEA, UNSPECIFIED SNOMED Code(s): 77922584 (2) History of Kemar-en-Y gastric bypass Current Visit: Yes Status: Acute Code(s): Z98.84 - BARIATRIC SURGERY STATUS SNOMED Code(s): 255150615 (3) Elevated liver enzymes Narrative/Plan: Mild elevation of total bilirubin and ALT nonspecific ultrasound reporting fatty infiltration of liver. Current Visit: Yes Status: Acute Code(s): R74.8 - ABNORMAL LEVELS OF OTHER SERUM ENZYMES SNOMED Code(s): 905963890 (4) Chest pain Current Visit: Yes Status: Acute Code(s): R07.9 - CHEST PAIN, UNSPECIFIED SNOMED Code(s): 04775016 Plan: 1. Stool culture lactoferrin requested. C. diff negative therefore will provide Imodium as needed for diarrhea. Reevaluate in a.m. Continue with IV hydration 75 mL an hour. As for elevated liver enzymes very nonspecific ultrasound unremarkable. We'll repeat CMP in a.m. based on results further admissions to follow. Thank you for this kind referral and the opportunity to participate in the care of your patient. This consultation was discussed with Dr. Crane. The impression and plan of care have been directed as dictated.
[2018-06-08] MEDS: SODIUM CHLORIDE 0.9% 1,000 ML IV SCH (16:34)
[2018-06-08] MEDS: NYSTATIN 100,000 UNIT/ML SUSP 500,000 UNIT/5 ML CUP PO SCH ×2 (16:35→21:14)
[2018-06-08] MEDS: CLINDAMYCIN 600 MG in DEXTROSE 5% IN WATER 50 ML IVPB SCH ×2 (16:36)
[2018-06-08 17:10] LABS: Glucose,Whole Blood 178 mg/dL (75-99)
[2018-06-08 20:37] LABS: Glucose,Whole Blood 219 mg/dL (75-99)
[2018-06-08] MEDS: LATANOPROST 0.005% OPHTH DROPS 2.5 ML BTL BOTH EYES SCH (21:10)
[2018-06-08] MEDS: clonazePAM 0.5 MG TAB PO SCH (21:12)
[2018-06-08] MEDS: INSULIN DETEMIR 100 UNIT/ML 10 ML VIAL SQ SCH (21:15)
[2018-06-08] MEDS: MIRTAZAPINE 15 MG TAB PO SCH (21:19)
[2018-06-08] MEDS: MONTELUKAST 10 MG TAB PO SCH (21:24)
[2018-06-09] MEDS: CLINDAMYCIN 600 MG in DEXTROSE 5% IN WATER 50 ML IVPB SCH ×4 (00:32→08:09)
[2018-06-09] MEDS: SODIUM CHLORIDE 0.9% 1,000 ML IV SCH (05:21)
[2018-06-09 06:14] LABS: Basophils % (A) 1 %; Eosinophils # (A) 0.2 k/uL (0-0.7); Eosinophils % (A) 3 %; HCT 36.1 % (34.0-46.0); HGB 12.7 gm/dL (11.4-16.0); Lymphocytes # (A) 1.4 k/uL (1.0-4.8); Lymphocytes % (A) 27 %; MCH 29.6 pg (25.0-35.0); MCHC 35.2 g/dL (31.0-37.0); MCV 84.2 fL (80.0-100.0); Mean Platelet Volume 6.4; Monocytes # (A) 0.4 k/uL (0-1.0); Monocytes % (A) 8 %; Neutrophils # (A) 3.2 k/uL (1.3-7.7); Neutrophils % (A) 59 %; Platelet Count 273 k/uL (150-450); RBC 4.29 m/uL (3.80-5.40); RDW 12.6 % (11.5-15.5); WBC 5.3 k/uL (3.8-10.6)
[2018-06-09 06:30] LABS: Potassium 3.9 mmol/L (3.5-5.1)
[2018-06-09 06:31] LABS: ALT 35 U/L (9-52); AST 15 U/L (14-36); Alkaline Phosphatase 73 U/L (38-126); Anion Gap 4 mmol/L; Blood Urea Nitrogen 16 mg/dL (7-17); Calcium 8.6 mg/dL (8.4-10.2); Carbon Dioxide 26 mmol/L (22-30); Chloride 110 mmol/L (98-107); Glucose 93 mg/dL (74-99); Sodium 140 mmol/L (137-145); Total Bilirubin 0.9 mg/dL (0.2-1.3); Total Protein 5.9 g/dL (6.3-8.2)
[2018-06-09 06:38] LABS: Glucose,Whole Blood 100 mg/dL (75-99)
[2018-06-09 07:11] VITALS: BP 83/50; PULSE 65; TEMP 98.3
[2018-06-09] MEDS ORDERED: PANTOPRAZOLE 40 MG TABLET PO SCH (07:30)
[2018-06-09] MEDS: FLUTICASONE 110 MCG INHALER INHALATION SCH (07:57)
[2018-06-09] MEDS: INSULIN ASPART 100 UNIT/ML 1 ML 10 ML VIAL SQ SCH ×2 (07:59→13:04)
[2018-06-09] MEDS: CHOLECALCIFEROL 1,000 UNIT TAB PO SCH (08:08)
[2018-06-09] MEDS: GABAPENTIN 400 MG CAP PO SCH (08:08)
[2018-06-09] MEDS: FAMOTIDINE 20 MG TAB PO SCH (08:08)
[2018-06-09] MEDS: RIVAROXABAN 10 MG TAB PO SCH (08:08)
[2018-06-09] MEDS: NYSTATIN 100,000 UNIT/ML SUSP 500,000 UNIT/5 ML CUP PO SCH ×2 (08:09→13:06)
[2018-06-09 12:01] LABS: Glucose,Whole Blood 135 mg/dL (75-99)
[2018-06-09] MEDS ORDERED: LOPERAMIDE 2 MG CAP PO PRN (12:46)
--- NOTE | 2018-06-09 12:46 | P.PN ---
Subjective Progress Note Date: 06/09/18 Principal diagnosis: Diarrhea Diarrhea improved denies abdominal pain. Reports bloatedness gassiness. Tolerating diet. 10 bowel movements 18 hours improved from 40 bowel movements yesterday. Stool studies so far no growth. C. diff negative. Afebrile. LFTs within normal limits. Objective - Vital Signs Vital signs: Vital Signs Temp 98.3 F 06/09/18 07:00 Pulse 65 06/09/18 07:00 Resp 18 06/09/18 08:00 BP 83/50 06/09/18 07:00 Pulse Ox 98 06/09/18 07:00 Intake & Output 06/08/18 06/09/18 06/09/18 18:59 06:59 18:59 Intake Total 1120 900 240 Balance 1120 900 240 Weight 86.5 kg Intake: IV 500 Clindamycin 600 mg In 50 Dextrose 5% in Water 50 ml @ 50 mls/hr IVPB Q8HR LEEANN Rx#:[id number] Sodium Chloride 0.9% 1, 450 000 ml @ 75 mls/hr IV . [id number] LEEANN Rx#:[id number] Oral 1020 400 240 Other 100 Other: Voiding Method Toilet Toilet # Voids 1 - Exam General appearance: The patient is alert, oriented, in no acute distress. HET: Head is normocephalic and atraumatic. Pupils are equal and reactive. Oropharynx is clear without lesions. Neck: Supple without lymphadenopathy. Trachea midline. Heart: S1 S2. Regular rate and rhythm. Lungs: No crackles or wheezes are heard. Abdomen: Soft, nontender, nondistended with bowel sounds. No peritoneal signs. No palpable organomegaly or masses. Extremities: Normal skin color and turgor. No cyanosis, rash, ulceration, clubbing, or edema. Radial and pedal pulses are 2/4 bilaterally. Neurological: No focal deficits. Strength and sensation are grossly intact. - Labs CBC & Chem 7: 06/09/18 05:52 06/09/18 05:52 Labs: Abnormal Lab Results - Last 24 Hours (Table) 06/08/18 06/08/18 06/08/18 Range/Units 16:53 17:45 20:35 Chloride (98-107) mmol/L POC Glucose (mg/dL) 178 H 219 H (75-99) mg/dL Total Protein (6.3-8.2) g/dL Albumin (3.5-5.0) g/dL Stool Lactoferrin POSITIVE H (NEGATIVE) 06/09/18 06/09/18 06/09/18 Range/Units 05:52 06:36 11:47 Chloride 110 H (98-107) mmol/L POC Glucose (mg/dL) 100 H 135 H (75-99) mg/dL Total Protein 5.9 L (6.3-8.2) g/dL Albumin 3.0 L (3.5-5.0) g/dL Stool Lactoferrin (NEGATIVE) Assessment and Plan (1) Diarrhea Narrative/Plan: Nonbloody diarrhea acute onset less than 24 hours nonspecific possible self limiting infectious colitis possible gastroenteritis possible medication related. Clostridium difficile testing negative. Current Visit: Yes Status: Acute Code(s): R19.7 - DIARRHEA, UNSPECIFIED SNOMED Code(s): 88455194 (2) History of Kemar-en-Y gastric bypass Current Visit: Yes Status: Acute Code(s): Z98.84 - BARIATRIC SURGERY STATUS SNOMED Code(s): 419499856 (3) Elevated liver enzymes Narrative/Plan: Mild elevation of total bilirubin and ALT nonspecific ultrasound reporting fatty infiltration of liver. LFTs have normalized today. Current Visit: Yes Status: Acute Code(s): R74.8 - ABNORMAL LEVELS OF OTHER SERUM ENZYMES SNOMED Code(s): 978534160 (4) Chest pain Current Visit: Yes Status: Acute Code(s): R07.9 - CHEST PAIN, UNSPECIFIED SNOMED Code(s): 98265831 Plan: 1. Diet as tolerated. Imodium 1-2 tabs 4 times a day as needed. Discharge per medicine. Follow with PCP is advised. Assessment and plan a care discussed with Dr. Crane.
--- NOTE | 2018-06-09 14:21 | P.DS ---
Providers Date of admission: 06/07/18 06:08 Expected date of discharge: 06/09/18 Attending physician: Ankita Crowe Consults: 06/07/18 06:07 Consult Physician Routine Consulting Provider: Darwin Pendleton Consult Reason/Comments: CP Do you want consulting provider notified?: Yes 06/08/18 10:59 Consult Physician Routine Consulting Provider: Contreras Crane Consult Reason/Comments: diarrhea and elevated liver enzymes Do you want consulting provider notified?: Yes Primary care physician: Kaylee Bond Hospital Course: discharge diagnosis 1. Chest pain. Initial troponin negative. EKG completed showing normal sinus rhythm. Minimal voltage criteria for LVH, maybe normal variant. Nonspecific T- wave abnormality and abnormal EKG. X-ray completed showing no acute findings or substantial change. Cardiology services have been consulted. 2-D echo completed showing an EF of 55-60%. Per cardiology services chest discomfort, atypical for ischemic heart disease. Cardiology standpoint no evidence of cardiac abnormality seen. cardiology services have cleared patient 2. Left leg pain and increased edema. Patient requesting venous Doppler to rule out DVT. Venous Doppler completed showing negative for DVT in bilateral lower extremities. 3. History of superficial blood clot in right leg patient states approximately 3 months ago started on Xarelto per primary care provider 4. History of diabetes mellitus home insulin resumed along with sliding scale coverage 5. Elevated liver enzymes. AST 67 and 57. Total bili 1.8. Liver ultrasound completed showing heterogenic hyperechoic appearance of the liver is felt to be on the basis of diffuse fatty infiltration. liver enzymes have normalized. Advised patient to continue to hold cholesterol medication at this time and to be reevaluated by PCP. Will order CMP for 1 week. 6. Recent root canal. Patient states she has been on penicillin VK per her dentist. Patient has completed her prednisone. she will be switched to Cleocin 150 times a day for 5 more days. patient advised to follow-up with dentist 7. Gastric sleeve to rouz-en-y In December 2017 8. History of asthma 9. History of fibromyalgia 10. History of GERD 11. History of hyperlipidemia. 12. History of rheumatoid arthritis 13. History of anxiety bipolar and PTSD 14. Patient states she has a history of a leaky heart valve. 2-D echo completed and reviewed by backup administrator 15. Diarrhea. C. diff negative. Amylase and lipase within normal limits. per GI services stool studies so far showing no growth. C. diff negative. stool was positive for lactoferrin discharge. Patient advised Thursday 4 times a day as needed. Patient to follow-up with PCP. 16. Sores in mouth. patient prescribed nystatin Hospital course This is a 42-year-old female patient of Dr. Fernando. Patient presented with complaints of chest pain. Patient stated she suddenly felt a sharp pain that radiated to her neck and left arm. Patient then proceeded to call EMS in which they gave nitro and symptoms relieved. Patient is still complaining of a sharp chest pain. Patient has a known past medical history of asthma, diabetes, diagnosis of superficial DVT in right leg in which she is on Zaroxolyn by her PCP, fibromyalgia, GERD, hyperlipidemia, rheumatoid arthritis, anemia, retinal bleed/gluacoma, disc protrusion, endometriosis, HPV, IBS, insomnia, leaky heart valve, migraines, overactive bladder, gastric sleeve Kemar-en-Y in December of this year and recent root canal in which she is currently on her antibiotic. Patient states she is currently not on her prednisone per the root canal she had finished the medication. Acyclovir and Diflucan also not currently taking per patient. Patient does report that both her parents have significant cardiac history. Patient is also complaining of pain and increased swelling to the left leg. Patient requesting venous Doppler to rule out DVT at this time. Chest x-ray completed showing no acute findings or Substantial change. EKG completed showing normal sinus rhythm. Minimal voltage criteria for LVH, may be normal variant nonspecific T-wave abnormality. Initial troponin negative. Cardiology services have been consulted. On 06/08/2018 patient is currently resting in bed. Patient is complaining now that she has abdominal pain and diarrhea. C. diff negative. Will consult GI services at this time. Patient also complaining of sores in mouth and mouth soreness to recent root canal patient remains on Pen-Vee K. Cardiology services has cleared patient. At this time patient denies any chest pain or shortness of breath. on 06/09/2018 patient is currently resting in bed. Patient's abdominal pain and diarrhea have subsided. Liver enzymes have normalized. C. diff negative. Per GI services patient will be DC'd home and take Imodium as needed. Patient to follow-up with PCP. Patient has been cleared from cardiology services. Will prescribe patient nystatin and clindamycin by mouth for root canal and patient advised to follow-up with dentist. Patient also advised to hold cholesterol medication due to initial elevation in liver enzymes and follow up with PCP in 1 week for further evaluation of restarting medication. At this time patient denies chest pain or shortness of breath. Patient denies nausea vomiting or diarrhea. Patient denies any urinary burning or frequency I performed an examination of the patient and discussed their management with the Nurse Practitioner. I have reviewed the Nurse Practitioner's notes and agree with the documented findings and plan of care Patient Condition at Discharge: Stable Plan - Discharge Summary Discharge Rx Participant: No New Discharge Prescriptions: No Action Montelukast Sodium [Singulair] 10 mg PO HS Mirtazapine [Remeron] 15 mg PO HS clonazePAM [KlonoPIN] 0.5 mg PO HS Latanoprost Ophth [Xalatan 0.005%] 1 drops BOTH EYES HS Omalizumab [Xolair] 300 mg SQ Q28D Insulin Glargine [Lantus] 40 unit SQ HS Rivaroxaban [Xarelto] 10 mg PO HS Atorvastatin [Lipitor] 80 mg PO HS Budesonide [Pulmicort Flexhaler] 2 puff INHALATION RT-BID Gabapentin 800 mg PO BID INSULIN LISPRO (humaLOG) [humaLOG] See Protocol SQ ACHS Mirabegron [Myrbetriq] 25 mg PO DAILY Phenazopyridine [Pyridium] 200 mg PO TID PRN PRN Reason: UTI Albuterol Inhaler [Ventolin Hfa Inhaler] 1 - 2 puff INHALATION RT-Q6H PRN PRN Reason: Shortness Of Breath ALPRAZolam [Xanax] 0.25 mg PO DAILY PRN PRN Reason: Anxiety predniSONE 10 mg PO DAILY PRN PRN Reason: UPPER RESPIRATORY Ondansetron [Zofran ODT] 4 mg PO Q6H PRN PRN Reason: Nausea Ketoconazole 2% Shampoo [Nizoral] 1 applic TOPICAL Q3D PRN PRN Reason: ECZEMA/PSORIASIS Hydrochlorothiazide [Hydrodiuril] 12.5 mg PO DAILY PRN PRN Reason: Edema Fluconazole [Diflucan] 100 mg PO DAILY PRN PRN Reason: YEAST INFECTION Clobetasol 0.05% Soln 1 applic TOPICAL BID PRN PRN Reason: ECZEMA/PSORIASIS Acyclovir 400 mg PO BID PRN PRN Reason: FLARE UP Cyanocobalamin (Vitamin B-12) [Vitamin B-12] 1,000 mcg PO DAILY Pedi Multivit No.25/Folic Acid [Flintstones Multivit Chew Tab] 300 mcg PO BID Cholecalciferol [Vitamin D3] 5,000 unit PO DAILY Vitamin B Complex 1 cap PO DAILY Calcium Citrate 500 mg PO DAILY Biotin 5 mg PO DAILY predniSONE See Taper PO DAILY Penicillin V Potassium [Pen Vee K] 500 mg PO Q6H HYDROcodone/APAP 5-325MG [Shelby 5-325] 1 - 2 tab PO Q4H PRN PRN Reason: Pain Cyclobenzaprine [Flexeril] 5 - 10 mg PO HS Discharge Medication List Mirtazapine [Remeron] 15 mg PO HS 06/23/14 [History] Montelukast Sodium [Singulair] 10 mg PO HS 06/23/14 [History] clonazePAM [KlonoPIN] 0.5 mg PO HS 06/23/14 [History] Latanoprost Ophth [Xalatan 0.005%] 1 drops BOTH EYES HS 07/28/17 [History] Omalizumab [Xolair] 300 mg SQ Q28D 12/01/17 [History] Insulin Glargine [Lantus] 40 unit SQ HS 12/29/17 [History] Rivaroxaban [Xarelto] 10 mg PO HS 03/24/18 [History] ALPRAZolam [Xanax] 0.25 mg PO DAILY PRN 06/07/18 [History] Acyclovir 400 mg PO BID PRN 06/07/18 [History] Albuterol Inhaler [Ventolin Hfa Inhaler] 1 - 2 puff INHALATION RT-Q6H PRN [History] Atorvastatin [Lipitor] 80 mg PO HS 06/07/18 [History] Biotin 5 mg PO DAILY 06/07/18 [History] Budesonide [Pulmicort Flexhaler] 2 puff INHALATION RT-BID 06/07/18 [History] Calcium Citrate 500 mg PO DAILY 06/07/18 [History] Cholecalciferol [Vitamin D3] 5,000 unit PO DAILY 06/07/18 [History] Clobetasol 0.05% Soln 1 applic TOPICAL BID PRN 06/07/18 [History] Cyanocobalamin (Vitamin B-12) [Vitamin B-12] 1,000 mcg PO DAILY 06/07/18 [ History] Cyclobenzaprine [Flexeril] 5 - 10 mg PO HS 06/07/18 [History] Fluconazole [Diflucan] 100 mg PO DAILY PRN 06/07/18 [History] Gabapentin 800 mg PO BID 06/07/18 [History] HYDROcodone/APAP 5-325MG [Shelby 5-325] 1 - 2 tab PO Q4H PRN 06/07/18 [History] Hydrochlorothiazide [Hydrodiuril] 12.5 mg PO DAILY PRN 06/07/18 [History] INSULIN LISPRO (humaLOG) [humaLOG] See Protocol SQ ACHS 06/07/18 [History] Ketoconazole 2% Shampoo [Nizoral] 1 applic TOPICAL Q3D PRN 06/07/18 [History] Mirabegron [Myrbetriq] 25 mg PO DAILY 06/07/18 [History] Ondansetron [Zofran ODT] 4 mg PO Q6H PRN 06/07/18 [History] Pedi Multivit No.25/Folic Acid [Flintstones Multivit Chew Tab] 300 mcg PO BID [History] Penicillin V Potassium [Pen Vee K] 500 mg PO Q6H 06/07/18 [History] Phenazopyridine [Pyridium] 200 mg PO TID PRN 06/07/18 [History] Vitamin B Complex 1 cap PO DAILY 06/07/18 [History] predniSONE 10 mg PO DAILY PRN 06/07/18 [History] predniSONE See Taper PO DAILY 06/07/18 [History] Follow up Appointment(s)/Referral(s): Kaylee Bond MD [Primary Care Provider] - 1-2 days
== END 2018-06-09 15:18 | disposition home or self-care (01) ==
LOC: EC 04:51 → 1SOBS 06:08
PROVIDERS: ADMIT Internal Medicine; ATTEND Internal Medicine
DX: R07.89 Other chest pain (principal); R07.2 Precordial pain; R94.31 Abnormal electrocardiogram [ECG] [EKG]; R60.9 Edema, unspecified; M79.605 Pain in left leg; E11.40 Type 2 diabetes mellitus with diabetic neuropathy, unspecified; J45.909 Unspecified asthma, uncomplicated; M79.7 Fibromyalgia; K21.9 Gastro-esophageal reflux disease without esophagitis; E78.5 Hyperlipidemia, unspecified; M06.9 Rheumatoid arthritis, unspecified; F43.10 Post-traumatic stress disorder, unspecified; F41.9 Anxiety disorder, unspecified; K58.0 Irritable bowel syndrome with diarrhea; N32.81 Overactive bladder; Z98.0 Intestinal bypass and anastomosis status; Z82.49 Family history of ischemic heart disease and other diseases of the circulatory system; F31.9 Bipolar disorder, unspecified; Z86.73 Personal history of transient ischemic attack (TIA), and cerebral infarction without residual deficits; R74.8 Abnormal levels of other serum enzymes; H40.9 Unspecified glaucoma; R11.0 Nausea; K76.0 Fatty (change of) liver, not elsewhere classified; L30.9 Dermatitis, unspecified; K04.7 Periapical abscess without sinus; Z79.899 Other long term (current) drug therapy; Z79.51 Long term (current) use of inhaled steroids; Z79.4 Long term (current) use of insulin; Z79.01 Long term (current) use of anticoagulants; Z79.84 Long term (current) use of oral hypoglycemic drugs; Z88.1 Allergy status to other antibiotic agents; Z88.8 Allergy status to other drugs, medicaments and biological substances; Z16.24 Resistance to multiple antibiotics; Z86.14 Personal history of Methicillin resistant Staphylococcus aureus infection; Z90.49 Acquired absence of other specified parts of digestive tract; Z87.891 Personal history of nicotine dependence; Z98.84 Bariatric surgery status; R29.6 Repeated falls; Z86.718 Personal history of other venous thrombosis and embolism; Z86.19 Personal history of other infectious and parasitic diseases; E66.9 Obesity, unspecified; Z68.29 Body mass index [BMI] 29.0-29.9, adult
CPT/HCPCS: 96365; 96366 ×2; 99285; 36415; 94640 ×4; 93005; 93306; 85379; 83880; 80053 ×3; 82150; 82550; 82553; 83690; 83735; 84484; 85025 ×3; 85610; 85730; 87324; 87045; 83630; 87046; 71046; 76705; 93970; G0378 ×3

== ENCOUNTER → 2018-06-15 | Outpatient (CLI) | payer MEDICARE, OTHER ==
[2018-06-15 16:11] LABS: Albumin/Globulin Ratio 1.82 (1.20-2.10); Anion Gap 4.2 mmol/L (4.00-12.00); Calcium 8.8 mg/dL (8.7-10.3); Carbon Dioxide 28.8 mmol/L (21.6-31.8); Globulin 2.2 g/dL (2.1-3.7); Potassium 4.1 mmol/L (3.5-5.5); Total Protein 6.2 g/dL (6.2-8.2)
== END | disposition home or self-care (01) ==
LOC: LABWHC1 09:44
PROVIDERS: ATTEND Nurse Practitioner
DX: Z09 Encounter for follow-up examination after completed treatment for conditions other than malignant neoplasm (principal); Z86.39 Personal history of other endocrine, nutritional and metabolic disease
CPT/HCPCS: 36415; 80053

== ENCOUNTER → 2018-07-13 | Outpatient (CLI) | payer MEDICARE, OTHER ==
[2018-07-14 04:50] LABS: Iron Saturation 20.75 (12.00-45.00)
[2018-07-14 04:58] LABS: Vitamin D 25 Hydroxy 30.2 ng/mL (30.0-100.0)
[2018-07-14 14:11] LABS: Zinc, Serum 71 ug/dL (60-130)
[2018-07-14 14:40] LABS: Vitamin B1 72 ug/L (38-122)
== END | disposition home or self-care (01) ==
LOC: LABWHC1 16:37
PROVIDERS: ATTEND Surgery
DX: D64.9 Anemia, unspecified (principal); R53.83 Other fatigue; Z98.84 Bariatric surgery status
CPT/HCPCS: 36415; 82040; 82306; 82525; 82607; 82728; 82747; 83036; 83540; 83550; 83921; 84134; 84425; 84630

== ENCOUNTER 2018-09-03 08:08 | Day surgery (SDC) | payer MEDICARE, OTHER ==
[2018-09-03 09:31] VITALS: RESP 18; TEMP 98
[2018-09-03 09:43] LABS: Glucose,Whole Blood 126 mg/dL (75-99)
[2018-09-03] MEDS ORDERED: LIDOCAINE 1% 20 ML VIAL (10MG/ML) FOR IV START INTRADERMA ONE (09:45)
[2018-09-03] MEDS: LACTATED RINGERS 1,000 ML IV SCH ×2 (09:45→10:00)
[2018-09-03 09:53] VITALS: BMI 26.8
[2018-09-03] MEDS ORDERED: PROPOFOL 10 MG/ML 20 ML VIAL IV ONE (10:02)
[2018-09-03] MEDS ORDERED: LIDOCAINE 1% INJ 10MG/ML (20 ML MDV) ONE (10:02)
--- NOTE | 2018-09-03 10:24 | P.PCN ---
Date of Procedure: 09/03/18 Procedure(s) Performed: Brief history: Patient is a pleasant 43-year-old white female, scheduled for an elective upper endoscopy as well as colonoscopy as a part of evaluation of iron deficiency anemia. She does have history of gastric bypass surgery done in December 2017. She does have some heartburn and history of GERD. Procedure performed: Esophagogastroduodenoscopy with biopsy Colonoscopy Preoperative diagnosis: Iron deficiency anemia Anesthesia: [facility] Procedure: After informed consent was obtained from the patient was brought into the endoscopy unit and IV sedation was administered by anesthesia under continuous monitoring. Initially upper endoscopy was done. The Olympus GF 160 video endoscope was inserted inserted into the mouth and esophagus intubated without any difficulty and was gradually advanced into the gastric pouch that appeared normal. There was evidence of Kemar-en-Y gastric bypass surgery noted. Scope was advanced into the afferent and efferent loops. Biopsies were done from the jejunum. The scope was then withdrawn into the gastric pouch that appeared normal. The GE junction was located at 38 cm to the incisors. It appeared regular with no erythema erosions or ulcerations. Rest of the esophagus appeared normal. Patient tolerated the procedure well. At this time the patient continued to remain sedation. Initial digital rectal examination was normal. Olympus CF 160 video colonoscope was then inserted into the rectum and gradually advanced to the cecum without any difficulty. Careful examination was performed as the scope was gradually being withdrawn. The prep was excellent. The cecum, ascending colon, transverse colon, descending colon, sigmoid colon and rectum appeared normal. Retroflexion was performed in the rectum and no lesions were noted. Patient tolerated the procedure well. Impression: 1. Upper endoscopy revealed evidence of gastric Kemar-en-Y bypass surgery with normal anastomosis. 2. Colonoscopy was essentially within normal limits with no evidence of colitis or colorectal neoplasia Recommendations: Findings of this examination were discussed with the patient as well as a family. She was advised to follow with the biopsy results and she'll be seen in office in 3-4 weeks. She was advised to start an iron supplements daily and we'll repeat CBC in 1 month
[2018-09-03 11:07] VITALS: BP 122/79; PULSE 64
== END 2018-09-03 11:27 | disposition home or self-care (01) ==
LOC: ORWHC2ENDO 08:08
PROVIDERS: ATTEND Internal Medicine Gastroenterology
DX: D50.9 Iron deficiency anemia, unspecified (principal); Z98.84 Bariatric surgery status; K21.9 Gastro-esophageal reflux disease without esophagitis; Z88.8 Allergy status to other drugs, medicaments and biological substances; Z79.51 Long term (current) use of inhaled steroids; Z79.899 Other long term (current) drug therapy; J45.909 Unspecified asthma, uncomplicated; E11.9 Type 2 diabetes mellitus without complications; F32.9 Major depressive disorder, single episode, unspecified; F41.9 Anxiety disorder, unspecified
CPT/HCPCS: 81025; 88305; 45378; 43239; J2001; J2704

== ENCOUNTER → 2018-09-16 | Outpatient (CLI) | payer MEDICARE, OTHER ==
[2018-09-16 17:07] LABS: HIV 1 AB Non-Reactive (Non-Reactive); HIV AB P24 Non-Reactive (Non-Reactive); HIV P24 AG Non-Reactive (Non-Reactive)
[2018-09-16 17:14] LABS: Hepatitis C IgG Antibody Non-Reactive (Non-Reactive)
== END | disposition home or self-care (01) ==
LOC: LABWHC1 08:45
PROVIDERS: ATTEND Internal Medicine Infectious Disease
DX: B20 Human immunodeficiency virus [HIV] disease (principal)
CPT/HCPCS: 36415; 86803; 87340; 87390

== ENCOUNTER → 2018-10-12 | Outpatient (CLI) | payer MEDICARE, OTHER | LOC: CPPFTMAIN 10:38 | PROVIDERS: ATTEND Internal Medicine Pulmonary Disease | DX: J45.50 Severe persistent asthma, uncomplicated (principal) | CPT/HCPCS: 94060; 94726; 94729 ==

== ENCOUNTER 2018-11-17 08:04 | Emergency (ER) | payer MEDICARE, OTHER ==
[2018-11-17 08:10] VITALS: TEMP 97.9
[2018-11-17 08:35] VITALS: RESP 18
--- NOTE | 2018-11-17 08:41 | ED ---
Chest Pain HPI - General Chief Complaint: Chest Pain Stated Complaint: chest pain Time Seen by Provider: 11/17/18 08:14 Source: patient, RN notes reviewed, old records reviewed Mode of arrival: wheelchair Limitations: no limitations - History of Present Illness Initial Comments: This is a 43-year-old female presents with complaints of chest pain is started yesterday she states it's right-sided chest squeezing sometimes sharp gets worse with deep breathing 3-4/10 severity not associated with any fevers chills nausea vomiting sweats cough or other symptoms. She does states she's been under last stress recently because of a divorce. She states she does have a history of SVT she does have a leaky heart valve and she states that she recently had a stress test at [facility] in [place] which was negative for acute findings. No other modifying factors at this time MD Complaint: chest pain - Related Data Home Medications Medication Instructions Recorded Confirmed Mirtazapine [Remeron] 15 mg PO HS 06/23/14 11/17/18 Montelukast Sodium [Singulair] 10 mg PO HS 06/23/14 11/17/18 clonazePAM [KlonoPIN] 0.5 mg PO HS 06/23/14 11/17/18 Latanoprost Ophth [Xalatan 0.005%] 1 drops BOTH EYES HS 07/28/17 11/17/18 Albuterol Inhaler [Ventolin Hfa 1 - 2 puff INHALATION RT-Q6H PRN 06/07/18 11/17/18 Inhaler] Budesonide [Pulmicort Flexhaler] 2 puff INHALATION RT-BID PRN 06/07/18 11/17/18 Atorvastatin Calcium [Lipitor] 80 mg PO HS 11/17/18 11/17/18 Cyclobenzaprine [Flexeril] 5 mg PO TID PRN 11/17/18 11/17/18 Gabapentin [Neurontin] 300 mg PO HS 11/17/18 11/17/18 Mirabegron [Myrbetriq] 50 mg PO HS 11/17/18 11/17/18 Previous Rx's Medication Instructions Recorded predniSONE 20 mg PO BID #10 tab 11/17/18 Allergies Allergy/AdvReac Type Severity Reaction Status Date / Time cefazolin Allergy Unknown Verified 11/17/18 08:31 erythromycin base Allergy TOLD BY DR Verified 11/17/18 08:31 NOT TO TAKE -GASTRIC SLEEVE ibuprofen Allergy HISTORY OF Verified 11/17/18 08:31 GASTRIC SLEEVE-NOT TO TAKE PER DR" NSAIDS (Non-Steroidal Allergy Unknown Verified 11/17/18 08:31 Anti-Inflamma sumatriptan [From Imitrex] Allergy AGITATION,H Verified 11/17/18 08:31 ALLUCINATIO NS sumatriptan succinate Allergy Hallucinati Verified 11/17/18 08:31 [From Imitrex] ons topiramate [From Topamax] Allergy Hallucinati Verified 11/17/18 08:31 ons vancomycin Allergy RED MAN Verified 11/17/18 08:31 SYNDROME,SHORTNESS OF BREATH Penicillins AdvReac Anaphylaxis Verified 11/17/18 08:31 benzoperoxide Allergy Rash/Hives Uncoded 11/17/18 08:10 Review of Systems ROS Statement: Those systems with pertinent positive or pertinent negative responses have been documented in the HPI. ROS Other: All systems not noted in ROS Statement are negative. EKG Findings - EKG Results: EKG: interpreted by ERMD, sinus rhythm (Normal sinus rhythm rate was 65. Interval 160 QRS duration 82 QT since QTC of 14/434 nonspecific anterior configuration) Past Medical History Past Medical History: Asthma, Diabetes Mellitus, Deep Vein Thrombosis (DVT), GERD/Reflux, Hyperlipidemia, Rheumatoid Arthritis (RA) Additional Past Medical History / Comment(s): MIGRAINE, FATTY LIVER,IRRITABLE BOWEL. BLOOD RIGHT LEG. SVT, GLAUCOMA. History of Any Multi-Drug Resistant Organisms: MRSA, Other MDRO Date of last positivie culture/infection: 2013 MDRO Source:: nasal Past Surgical History: Adenoidectomy, Bariatric Surgery, Breast Surgery, Section, Cholecystectomy, Hernia Repair, Tonsillectomy, Tubal Ligation Additional Past Surgical History / Comment(s): deviated septum,GASTRIC SLEEVE,D&C,LAP BAN, LAP BAND REMOVAL,UMBILICAL HERNIA,INCISIONAL HERNIA,RIGHT ANKLE SURGERY,CYST BIOPSY Past Anesthesia/Blood Transfusion Reactions: Postoperative Nausea & Vomiting (PONV) Past Psychological History: Anxiety, Bipolar, PTSD Smoking Status: Former smoker Past Alcohol Use History: Rare Past Drug Use History: None Reported - Past Family History Mother Family Medical History: No Reported History Father Family Medical History: Myocardial Infarction (WA) Additional Family Medical History / Comment(s): Father of a massive [place] following laser eye surgery. Sister(s) Family Medical History: Deep Vein Thrombosis (DVT) General Exam - General Exam Comments Initial Comments: This a well-developed well-nourished awake alert oriented 3 female Limitations: no limitations General appearance: alert, anxious Head exam: Present: atraumatic, normocephalic, normal inspection Eye exam: Present: normal appearance, PERRL, EOMI. Absent: scleral icterus, conjunctival injection, periorbital swelling ENT exam: Present: normal exam, mucous membranes moist Neck exam: Present: normal inspection, full ROM, other (No stridor JVD or br uits). Absent: tenderness, meningismus, lymphadenopathy Respiratory exam: Present: normal lung sounds bilaterally. Absent: respiratory distress, wheezes, rales, rhonchi, stridor Cardiovascular Exam: Present: regular rate, normal rhythm, normal heart sounds. Absent: systolic murmur, diastolic murmur, rubs, gallop, clicks GI/Abdominal exam: Present: soft, normal bowel sounds. Absent: distended, tenderness, guarding, rebound, rigid Extremities exam: Present: normal inspection, full ROM, normal capillary refill. Absent: tenderness, pedal edema, joint swelling, calf tenderness Back exam: Present: normal inspection Neurological exam: Present: alert, oriented X3, CN II-XII intact Psychiatric exam: Present: normal affect, normal mood Skin exam: Present: warm, dry, intact, normal color. 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 Patient presents with chest pain which appears be atypical she's been under last stress lately. It appears be costochondral in nature. Patient has had a Kemar-en-Y and is restricted for nonsteroidals on a short course of steroids. Disposition Clinical Impression: Chest wall syndrome, Costalchondritis Disposition: HOME SELF-CARE Condition: Good Instructions (If sedation given, give patient instructions): Costochondritis (ED) Prescriptions: predniSONE 20 mg PO BID #10 tab Is patient prescribed a controlled substance at d/c from ED?: No Referrals: Kaylee Bond MD [Primary Care Provider] - 1-2 days
--- NOTE | 2018-11-17 09:05 | XR ---
EXAMINATION TYPE: XR chest 2V DATE OF EXAM: 11/17/2018 COMPARISON: NONE HISTORY: Chest pain TECHNIQUE: Frontal and lateral views of the chest are obtained. FINDINGS: There is no focal air space opacity, pleural effusion, or pneumothorax seen. The cardiac silhouette size is within normal limits. The osseous structures are intact. There are overlying car diac leads. Postop changes are noted in the region of the gastroesophageal junction, right upper quad rant. IMPRESSION: No acute cardiopulmonary process.
[2018-11-17 09:14] LABS: Basophils # (A) 0.1 k/uL (0-0.2); Basophils % (A) 1 %; Eosinophils # (A) 0.1 k/uL (0-0.7); Eosinophils % (A) 1 %; HCT 41.8 % (34.0-46.0); HGB 14.2 gm/dL (11.4-16.0); Lymphocytes # (A) 1.5 k/uL (1.0-4.8); Lymphocytes % (A) 29 %; MCH 28.2 pg (25.0-35.0); MCHC 33.9 g/dL (31.0-37.0); MCV 83.3 fL (80.0-100.0); Mean Platelet Volume 6.8; Monocytes # (A) 0.3 k/uL (0-1.0); Monocytes % (A) 7 %; Neutrophils # (A) 3.2 k/uL (1.3-7.7); Neutrophils % (A) 60 %; Platelet Count 310 k/uL (150-450); RBC 5.01 m/uL (3.80-5.40); RDW 13.2 % (11.5-15.5); WBC 5.3 k/uL (3.8-10.6)
[2018-11-17 09:15] LABS: ALT 41 U/L (9-52); AST 26 U/L (14-36); Albumin 4.1 g/dL (3.5-5.0); Alkaline Phosphatase 95 U/L (38-126); Amylase 44 U/L (30-110); Anion Gap 8 mmol/L; Blood Urea Nitrogen 11 mg/dL (7-17); Calcium 9.3 mg/dL (8.4-10.2); Carbon Dioxide 29 mmol/L (22-30); Chloride 101 mmol/L (98-107); Creatine Kinase 41 U/L (30-135); Glucose 153 mg/dL (74-99); Lipase 65 U/L (23-300); Magnesium 1.6 mg/dL (1.6-2.3); Sodium 138 mmol/L (137-145); Total Bilirubin 1.5 mg/dL (0.2-1.3); Total Protein 7.1 g/dL (6.3-8.2)
[2018-11-17 09:18] LABS: D-Dimer 0.24 mg/L FEU (<0.60); Prothrombin Time 10.5 sec (9.0-12.0)
[2018-11-17 09:19] LABS: Partial Thromboplastin Time 23.5 sec (22.0-30.0)
[2018-11-17] MEDS ORDERED: KETOROLAC 30 MG/ML 1 ML VIAL IVP STA (10:50)
[2018-11-17 12:23] VITALS: BP 110/82; PULSE 74
== END 2018-11-17 12:22 | disposition home or self-care (01) ==
LOC: EC 08:04
DX: M94.0 Chondrocostal junction syndrome [Tietze] (principal); J45.909 Unspecified asthma, uncomplicated; E11.9 Type 2 diabetes mellitus without complications; E78.5 Hyperlipidemia, unspecified; H40.9 Unspecified glaucoma; F31.9 Bipolar disorder, unspecified; F43.10 Post-traumatic stress disorder, unspecified; Z86.14 Personal history of Methicillin resistant Staphylococcus aureus infection; Z87.891 Personal history of nicotine dependence; Z86.718 Personal history of other venous thrombosis and embolism; Z79.899 Other long term (current) drug therapy; Z88.0 Allergy status to penicillin; Z88.1 Allergy status to other antibiotic agents; Z88.6 Allergy status to analgesic agent; Z88.8 Allergy status to other drugs, medicaments and biological substances
CPT/HCPCS: 36415; 93005; 85379; 83880; 80053; 82150; 82550; 83690; 83735; 84484; 85025; 85610; 85730; 71046; 99285; 96374; J1885

== ENCOUNTER → 2019-01-18 | Day surgery (SDC) | payer MEDICARE, OTHER ==
[2019-01-17 11:26] VITALS: BMI 26.9
[~2019-01-18] MED LIST: SODIUM CHLORIDE 0.9% 1,000 ML IV SCH
[2019-01-18 11:47] LABS: Glucose,Whole Blood 195 mg/dL (75-99)
[2019-01-18 11:55] VITALS: BP 126/77; RESP 18; TEMP 97.8
[2019-01-18 13:52] VITALS: PULSE 72
--- NOTE | 2019-01-19 00:03 | PCN ---
PROCEDURE NOTE Baseline 12-lead ECG shows sinus rhythm, normal CO and narrow QRS, normal ST segments with mild sinus arrhythmia. Tilt table test per protocol: Baseline blood pressure 112/71 mmHg. Baseline heart rate 60 beats per minute. Patient is tilted upright at an angle of 70 degrees per protocol. She complained of shortness of breath and feeling a little wobbly and tightness in the chest. No associated change in heart rate or blood pressure. Her blood pressure, and heart rate remained stable throughout the procedure. She was laid supine at the end of the procedure. IMPRESSION: 1. Normal 12-lead ECG. 2. Normal heart rate and blood pressure response to upright tilting. MMODL / IJN: [id number] /
== END ==
LOC: CATHEP 10:58
PROVIDERS: ATTEND Internal Medicine Clinical Cardiac Electrophysiology
DX: R55 Syncope and collapse (principal)
CPT/HCPCS: 81025; 93660

== ENCOUNTER → 2019-02-08 | Outpatient (CLI) | payer MEDICARE, OTHER ==
[2019-02-08 10:52] LABS: HCT 42.3 % (34.0-46.0); HGB 14.3 gm/dL (11.4-16.0); MCH 29.2 pg (25.0-35.0); MCHC 33.9 g/dL (31.0-37.0); Mean Platelet Volume 6.5; Platelet Count 276 k/uL (150-450); RBC 4.92 m/uL (3.80-5.40); RDW 12.4 % (11.5-15.5); WBC 5.1 k/uL (3.8-10.6)
[2019-02-08 16:22] LABS: Iron Saturation 45.61 (12.00-45.00)
[2019-02-08 16:27] LABS: African American GFR (CKD) 103.2 (60.0-200.0); Albumin 4.1 g/dL (3.80-4.90); Albumin/Globulin Ratio 1.86 (1.60-3.17); Anion Gap 8.8 mmol/L (4.00-12.00); BUN/Creat Ratio 12.5 Ratio (12.00-20.00); Calcium 8.8 mg/dL (8.7-10.3); Carbon Dioxide 26.2 mmol/L (21.6-31.8); Chol/HDL Ratio 2.81; Globulin 2.2 g/dL (1.6-3.3); LDL Cholesterol,Calculated 66.8 mg/dL (0.0-131.0); Potassium 4.2 mmol/L (3.5-5.5); Total Bilirubin 1.7 mg/dL (0.2-1.2); Total Protein 6.3 g/dL (6.2-8.2); VLDL Calculation 18.2 mg/dL (5.00-40.00)
[2019-02-08 16:31] LABS: Ferritin 40.6 ng/mL (10.0-291.0); Vitamin D 25 Hydroxy 22.2 ng/mL (30.0-100.0)
[2019-02-08 20:21] LABS: Hemoglobin A1C 8.2 % (4.0-6.0)
[2019-02-10 06:58] LABS: Methylmalonic Acid 0.18 umol/L (<0.40)
== END | disposition home or self-care (01) ==
LOC: LABWHC1 09:24
PROVIDERS: ATTEND Surgery
DX: E11.65 Type 2 diabetes mellitus with hyperglycemia (principal); D64.9 Anemia, unspecified; R53.83 Other fatigue; Z98.84 Bariatric surgery status
CPT/HCPCS: 36415; 80053; 80061; 82043; 82306; 82525; 82570; 82607; 82728; 82747; 83036; 83540; 83550; 83921; 84134; 84425; 84443; 84630; 85027

== ENCOUNTER 2019-05-14 22:27 | Emergency (ER) | payer MEDICARE, OTHER ==
[2019-05-14 22:33] VITALS: RESP 18
[2019-05-14] MEDS ORDERED: ONDANSETRON 4 MG/2 ML VIAL IVP STA (22:40)
[2019-05-14] MEDS ORDERED: SODIUM CHLORIDE 0.9% 1,000 ML IV STA ×2 (22:40→23:39)
[2019-05-14] MEDS ORDERED: diphenhydrAMINE 50 MG/ML 1 ML VIAL IVP STA (22:40)
--- NOTE | 2019-05-14 22:42 | ED ---
Dizziness HPI - General Chief Complaint: Dizziness Stated Complaint: Dizziness Time Seen by Provider: 05/14/19 22:35 Source: patient, RN notes reviewed, old records reviewed Mode of arrival: ambulatory Limitations: no limitations - History of Present Illness Initial Comments: This is a 43-year-old female to ER. She presents today for evaluation of dizz iness vertiginous symptoms room spinning nausea, no vomiting. Symptoms were sudden in this afternoon. She has history of SVT and history of vertigo symptoms today were worse. Patient still feels significant nauseous. Otherwise patient is also complaining some vaginal spotting concern for ectopic with also leading abdominal pain. Patient is scheduled for cardiac cath ablation in a few days. MD Complaint: dizziness, lightheadedness -: hour(s) Timing: sudden onset, awoke with symptoms Description: sense of movement, "room spinning", lightheadedness, nausea History of Same: Yes History of Trauma: No Severity: moderate Improves With: remaining still Worsens With: movement Associated Symptoms: weakness - Related Data Home Medications Medication Instructions Recorded Confirmed Mirtazapine [Remeron] 15 mg PO HS 06/23/14 05/04/19 Montelukast Sodium [Singulair] 10 mg PO HS 06/23/14 05/04/19 clonazePAM [KlonoPIN] 0.5 mg PO HS 06/23/14 05/04/19 Latanoprost Ophth [Xalatan 0.005%] 1 drops BOTH EYES HS 07/28/17 05/04/19 Albuterol Inhaler [Ventolin Hfa 1 - 2 puff INHALATION RT-Q6H PRN 06/07/18 Inhaler] Budesonide [Pulmicort Flexhaler] 2 puff INHALATION RT-BID PRN 06/07/18 05/04/19 Atorvastatin Calcium [Lipitor] 80 mg PO HS 11/17/18 05/04/19 Cyclobenzaprine [Flexeril] 5 mg PO HS 11/17/18 05/04/19 Gabapentin [Neurontin] 300 mg PO HS 11/17/18 05/04/19 Mirabegron [Myrbetriq] 50 mg PO HS 11/17/18 05/04/19 Bepreve 1 drop BOTH EYES QAM 01/17/19 05/04/19 INSULIN LISPRO (humaLOG) [humaLOG] 0 units SQ DIRECTED PRN 01/17/19 05/04/19 Insulin Glargine [Lantus] 0 unit SQ DIRECTED PRN 01/17/19 05/04/19 Loratadine [Claritin] 10 mg PO HS 01/17/19 05/04/19 Omalizumab [Xolair] 300 mg SQ DIRECTED 05/04/19 05/04/19 Allergies Allergy/AdvReac Type Severity Reaction Status Date / Time cefazolin Allergy Unknown Verified 05/14/19 22:33 erythromycin base Allergy TOLD BY DR Verified 05/14/19 22:33 NOT TO TAKE -GASTRIC SLEEVE ibuprofen Allergy HISTORY OF Verified 05/14/19 22:33 GASTRIC SLEEVE-NOT TO TAKE PER DR" NSAIDS (Non-Steroidal Allergy Unknown Verified 05/14/19 22:33 Anti-Inflamma sumatriptan [From Imitrex] Allergy AGITATION,H Verified 05/14/19 22:33 ALLUCINATIO NS sumatriptan succinate Allergy Hallucinati Verified 05/14/19 22:33 [From Imitrex] ons topiramate [From Topamax] Allergy Hallucinati Verified 05/14/19 22:33 ons vancomycin Allergy RED MAN Verified 05/14/19 22:33 SYNDROME,SHORTNESS OF BREATH Penicillins AdvReac Anaphylaxis Verified 05/14/19 22:33 benzoperoxide Allergy Rash/Hives Uncoded 05/14/19 22:33 Review of Systems ROS Statement: Those systems with pertinent positive or pertinent negative responses have been documented in the HPI. ROS Other: All systems not noted in ROS Statement are negative. Past Medical History Past Medical History: Asthma, Diabetes Mellitus, Deep Vein Thrombosis (DVT), GERD/Reflux, Hyperlipidemia, Rheumatoid Arthritis (RA) Additional Past Medical History / Comment(s): MIGRAINE, FATTY LIVER,IRRITABLE BOWEL. BLOOD RIGHT LEG. History of Any Multi-Drug Resistant Organisms: MRSA, Other MDRO Date of last positivie culture/infection: 2013 MDRO Source:: nasal Past Surgical History: Adenoidectomy, Bariatric Surgery, Breast Surgery, Section, Cholecystectomy, Hernia Repair, Tonsillectomy, Tubal Ligation Additional Past Surgical History / Comment(s): deviated septum,GASTRIC SLEEVE,D&C,LAP BAN, LAP BAND REMOVAL,UMBILICAL HERNIA,INCISIONAL HERNIA,RIGHT ANKLE SURGERY,CYST BIOPSY Past Anesthesia/Blood Transfusion Reactions: Postoperative Nausea & Vomiting (PONV) Past Psychological History: Anxiety, Bipolar, PTSD Smoking Status: Never smoker - Past Family History Mother Family Medical History: No Reported History Father Family Medical History: Myocardial Infarction (NC) Additional Family Medical History / Comment(s): Father of a massive NC following laser eye surgery. Sister(s) Family Medical History: Deep Vein Thrombosis (DVT) General Exam Limitations: no limitations General appearance: alert, in no apparent distress Head exam: Present: atraumatic, normocephalic, normal inspection Eye exam: Present: normal appearance, PERRL, EOMI. Absent: scleral icterus, conjunctival injection, periorbital swelling ENT exam: Present: normal exam, mucous membranes moist Neck exam: Present: normal inspection. Absent: tenderness, meningismus, lymphadenopathy Respiratory exam: Present: normal lung sounds bilaterally. Absent: respiratory distress, wheezes, rales, rhonchi, stridor Cardiovascular Exam: Present: regular rate, normal rhythm, normal heart sounds. Absent: systolic murmur, diastolic murmur, rubs, gallop, clicks GI/Abdominal exam: Present: soft, normal bowel sounds. Absent: distended, tenderness, guarding, rebound, rigid Extremities exam: Present: normal inspection, full ROM, normal capillary refill. Absent: tenderness, pedal edema, joint swelling, calf tenderness Back exam: Present: normal inspection Neurological exam: Present: alert, oriented X3, CN II-XII intact Psychiatric exam: Present: normal affect, normal mood Skin exam: Present: warm, dry, intact, normal color. Absent: rash Course Vital Signs 05/14/19 05/14/19 22:29 23:20 Temperature 98.3 F Pulse Rate 83 76 Respiratory 18 Rate Blood Pressure 137/95 133/89 O2 Sat by Pulse 98 98 Oximetry - Reevaluation(s) Reevaluation #1: 05/14/19 22:42 Medical records reviewed Reevaluation #2: 05/15/19 00:00 patient symptoms are significantly improved Reevaluation #3: 05/15/19 00:00 patient has alot going on at home, patient does not want to stay in hospital EKG Findings - EKG Comments: EKG Findings:: EKG shows sinus rhythm at a 79, IL 166, QRS 80, QTC 447 Medical Decision Making - Medical Decision Making 43 female to the ED and having improved NV, Improved vertigo, ok for dc. - Lab Data Result diagrams: 05/14/19 22:44 05/14/19 22:44 Lab Results 05/14/19 05/14/19 05/14/19 Range/Units 22:44 22:44 22:44 WBC 6.1 (3.8-10.6) k/uL RBC 4.76 (3.80-5.40) m/uL Hgb 14.4 (11.4-16.0) gm/dL Hct 38.9 (34.0-46.0) % MCV 81.6 (80.0-100.0) fL MCH 30.3 (25.0-35.0) pg MCHC 37.1 H (31.0-37.0) g/dL RDW 12.0 (11.5-15.5) % Plt Count 300 (150-450) k/uL Neutrophils % 52 % Lymphocytes % 38 % Monocytes % 6 % Eosinophils % 1 % Basophils % 1 % Neutrophils # 3.1 (1.3-7.7) k/uL Lymphocytes # 2.3 (1.0-4.8) k/uL Monocytes # 0.4 (0-1.0) k/uL Eosinophils # 0.1 (0-0.7) k/uL Basophils # 0.1 (0-0.2) k/uL Hyperchromasia Slight Sodium 138 (137-145) mmol/L Potassium 3.7 (3.5-5.1) mmol/L Chloride 105 (98-107) mmol/L Carbon Dioxide 26 (22-30) mmol/L Anion Gap 7 mmol/L BUN 13 (7-17) mg/dL Creatinine 0.54 (0.52-1.04) mg/dL Est GFR (CKD-EPI)AfAm >90 (>60 ml/min/1.73 sqM) Est GFR (CKD-EPI)NonAf >90 (>60 ml/min/1.73 sqM) Glucose 226 H (74-99) mg/dL Calcium 9.0 (8.4-10.2) mg/dL Phosphorus 2.9 (2.5-4.5) mg/dL Magnesium 1.9 (1.6-2.3) mg/dL Total Bilirubin 0.7 (0.2-1.3) mg/dL AST 19 (14-36) U/L ALT 24 (9-52) U/L Alkaline Phosphatase 93 (38-126) U/L Creatine Kinase 51 (30-135) U/L Troponin I <0.012 (0.000-0.034) ng/mL Total Protein 7.1 (6.3-8.2) g/dL Albumin 4.1 (3.5-5.0) g/dL Urine Color Urine Appearance (Clear) Urine pH (5.0-8.0) Ur Specific Dendron (1.001-1.035) Urine Protein (Negative) Urine Glucose (UA) (Negative) Urine Ketones (Negative) Urine Blood (Negative) Urine Nitrite (Negative) Urine Bilirubin (Negative) Urine Urobilinogen (<2.0) mg/dL Ur Leukocyte Esterase (Negative) Urine RBC (0-5) /hpf Urine WBC (0-5) /hpf Ur Squamous Epith Cells (0-4) /hpf Amorphous Sediment (None) /hpf Urine Bacteria (None) /hpf Urine Mucus (None) /hpf Urine HCG, Qual (Not Detectd) 05/14/19 05/14/19 Range/Units 23:04 23:04 WBC (3.8-10.6) k/uL RBC (3.80-5.40) m/uL Hgb (11.4-16.0) gm/dL Hct (34.0-46.0) % MCV (80.0-100.0) fL MCH (25.0-35.0) pg MCHC (31.0-37.0) g/dL RDW (11.5-15.5) % Plt Count (150-450) k/uL Neutrophils % % Lymphocytes % % Monocytes % % Eosinophils % % Basophils % % Neutrophils # (1.3-7.7) k/uL Lymphocytes # (1.0-4.8) k/uL Monocytes # (0-1.0) k/uL Eosinophils # (0-0.7) k/uL Basophils # (0-0.2) k/uL Hyperchromasia Sodium (137-145) mmol/L Potassium (3.5-5.1) mmol/L Chloride (98-107) mmol/L Carbon Dioxide (22-30) mmol/L Anion Gap mmol/L BUN (7-17) mg/dL Creatinine (0.52-1.04) mg/dL Est GFR (CKD-EPI)AfAm (>60 ml/min/1.73 sqM) Est GFR (CKD-EPI)NonAf (>60 ml/min/1.73 sqM) Glucose (74-99) mg/dL Calcium (8.4-10.2) mg/dL Phosphorus (2.5-4.5) mg/dL Magnesium (1.6-2.3) mg/dL Total Bilirubin (0.2-1.3) mg/dL AST (14-36) U/L ALT (9-52) U/L Alkaline Phosphatase (38-126) U/L Creatine Kinase (30-135) U/L Troponin I (0.000-0.034) ng/mL Total Protein (6.3-8.2) g/dL Albumin (3.5-5.0) g/dL Urine Color Yellow Urine Appearance Cloudy H (Clear) Urine pH 8.5 H (5.0-8.0) Ur Specific Dendron 1.029 (1.001-1.035) Urine Protein 1+ H (Negative) Urine Glucose (UA) 4+ H (Negative) Urine Ketones Trace H (Negative) Urine Blood Negative (Negative) Urine Nitrite Negative (Negative) Urine Bilirubin Negative (Negative) Urine Urobilinogen 8.0 (<2.0) mg/dL Ur Leukocyte Esterase Negative (Negative) Urine RBC 1 (0-5) /hpf Urine WBC 4 (0-5) /hpf Ur Squamous Epith Cells 26 H (0-4) /hpf Amorphous Sediment Rare H (None) /hpf Urine Bacteria Rare H (None) /hpf Urine Mucus Few H (None) /hpf Urine HCG, Qual Not Detected (Not Detectd) Disposition Clinical Impression: Vertigo, Dizziness, Nausea Disposition: HOME SELF-CARE Condition: Good Instructions (If sedation given, give patient instructions): Dizziness (ED) Is patient prescribed a controlled substance at d/c from ED?: No Referrals: Kaylee Bond MD [Primary Care Provider] - 1-2 days
[2019-05-14 22:57] LABS: Basophils # (A) 0.1 k/uL (0-0.2); Basophils % (A) 1 %; Eosinophils # (A) 0.1 k/uL (0-0.7); Eosinophils % (A) 1 %; HCT 38.9 % (34.0-46.0); HGB 14.4 gm/dL (11.4-16.0); Hyperchromasia Slight; Lymphocytes # (A) 2.3 k/uL (1.0-4.8); Lymphocytes % (A) 38 %; MCH 30.3 pg (25.0-35.0); MCHC 37.1 g/dL (31.0-37.0); MCV 81.6 fL (80.0-100.0); Mean Platelet Volume 5.7; Monocytes # (A) 0.4 k/uL (0-1.0); Monocytes % (A) 6 %; Neutrophils # (A) 3.1 k/uL (1.3-7.7); Neutrophils % (A) 52 %; Platelet Count 300 k/uL (150-450); RBC 4.76 m/uL (3.80-5.40); WBC 6.1 k/uL (3.8-10.6)
[2019-05-14 23:09] LABS: ALT 24 U/L (9-52); AST 19 U/L (14-36); African American GFR (CKD) >90 (>60 ml/min/1.73 sqM); Albumin 4.1 g/dL (3.5-5.0); Alkaline Phosphatase 93 U/L (38-126); Anion Gap 7 mmol/L; Blood Urea Nitrogen 13 mg/dL (7-17); Carbon Dioxide 26 mmol/L (22-30); Chloride 105 mmol/L (98-107); Creatine Kinase 51 U/L (30-135); Glucose 226 mg/dL (74-99); Magnesium 1.9 mg/dL (1.6-2.3); Phosphorus 2.9 mg/dL (2.5-4.5); Potassium 3.7 mmol/L (3.5-5.1); Sodium 138 mmol/L (137-145); Total Bilirubin 0.7 mg/dL (0.2-1.3); Total Protein 7.1 g/dL (6.3-8.2)
[2019-05-14 23:26] LABS: Amorphous Sediment,Urine Rare /hpf; Appearance,Urine Cloudy (Clear); Bacteria,Urine Rare /hpf; Bilirubin,Urine Negative (Negative); Blood,Urine Negative (Negative); Color,Urine Yellow; Glucose,Urine (UA) 4+ (Negative); Ketones,Urine Trace (Negative); Leukocyte Esterase,Urine Negative (Negative); Mucus,Urine Few /hpf; Nitrite,Urine Negative (Negative); PH, Urine 8.5 (5.0-8.0); Protein,Urine 1+ (Negative); RBC,Urine 1 /hpf (0-5); Specific Gravity,Urine 1.029 (1.001-1.035); Squamous Epithelial Cell,Urine 26 /hpf (0-4)
[2019-05-14] MEDS ORDERED: ONDANSETRON 4 MG ODT STARTER PACK 2 TAB BTL PO STA (23:53)
[2019-05-14] MEDS ORDERED: MECLIZINE 12.5 MG TAB PO STA (23:53)
[2019-05-15 00:17] VITALS: BP 122/82; PULSE 78; TEMP 98.6
== END 2019-05-15 00:15 | disposition home or self-care (01) ==
LOC: EC 22:27
DX: R42 Dizziness and giddiness (principal); R11.2 Nausea with vomiting, unspecified; R53.1 Weakness; N93.9 Abnormal uterine and vaginal bleeding, unspecified; R10.9 Unspecified abdominal pain; J45.909 Unspecified asthma, uncomplicated; E11.9 Type 2 diabetes mellitus without complications; E78.5 Hyperlipidemia, unspecified; F31.9 Bipolar disorder, unspecified; F41.9 Anxiety disorder, unspecified; Z88.0 Allergy status to penicillin; Z88.1 Allergy status to other antibiotic agents; Z88.6 Allergy status to analgesic agent; Z88.8 Allergy status to other drugs, medicaments and biological substances; Z79.4 Long term (current) use of insulin; Z79.899 Other long term (current) drug therapy; Z86.14 Personal history of Methicillin resistant Staphylococcus aureus infection; Z86.69 Personal history of other diseases of the nervous system and sense organs; Z86.79 Personal history of other diseases of the circulatory system; Z98.890 Other specified postprocedural states
CPT/HCPCS: 36415; 93005; 80053; 82550; 83735; 84100; 84484; 85025; 81001; 81025; 99284; 96374; 96375; 96361; J1200; J2405; S0119

== ENCOUNTER → 2019-05-20 | Outpatient (CLI) | payer MEDICARE, OTHER ==
--- NOTE | 2019-05-20 14:14 | US ---
EXAMINATION TYPE: US pelvic complete DATE OF EXAM: 05/20/2019 COMPARISON: NONE CLINICAL HISTORY: R10.2 Pelvic Pain. Pain TECHNIQUE: Transabdominal (TA). Transabdominal sonographic images of the pelvis were acquired. Date of LMP: 05/01/2019 EXAM MEASUREMENTS: Uterus: 8.2 x 3.9 x 7.5 cm Endometrial Stripe: .7 cm Right Ovary: 2.2 x 1.4 x 1.6 cm Left Ovary: 1.5 x 1.5 x 1.7 cm 1. Uterus: Anteverted wnl 2. Endometrium: wnl 3. Right Ovary: wnl 4. Left Ovary: wnl 5. Bilateral Adnexa: wnl 6. Posterior cul-de-sac: wnl IMPRESSION: No distinct abnormality appreciated.
--- NOTE | 2019-05-23 11:08 | MM ---
Reason for exam: screening (asymptomatic). Last mammogram was performed 1 year and 3 months ago. History: Benign excisional biopsy of the left breast, 2000. Physical Findings: A clinical breast exam by your physician is recommended on an annual basis and results should be correlated with mammographic findings. MG 3D Screening Mammo W/Cad Bilateral CC and MLO view(s) were taken. Prior study comparison: February 16, 2018, bilateral MG 3d screening mammo w/cad. February 06, 2017, bilateral MG 3d screening mammo w/cad. The breast tissue is heterogeneously dense. This may lower the sensitivity of mammography. Stable benign calcifications. There is no discrete abnormality. No significant changes when compared with prior studies. ASSESSMENT: Benign, BI-RAD 2 RECOMMENDATION: Routine screening mammogram of both breasts in 1 year.
== END | disposition home or self-care (01) ==
LOC: RADMAMWWP 13:38
PROVIDERS: ATTEND Family Medicine
DX: Z12.31 Encounter for screening mammogram for malignant neoplasm of breast (principal); R10.2 Pelvic and perineal pain; N83.209 Unspecified ovarian cyst, unspecified side
CPT/HCPCS: 76856; 77063; 77067

== ENCOUNTER → 2019-05-30 | Outpatient (CLI) | payer MEDICARE, OTHER ==
[2019-05-30 18:09] LABS: Hemoglobin A1C 8.8 % (4.0-6.0)
[2019-05-30 18:17] LABS: African American GFR (CKD) 103.2 (60.0-200.0); Albumin 3.9 g/dL (3.80-4.90); Albumin/Globulin Ratio 1.95 (1.60-3.17); Anion Gap 7.3 mmol/L (4.00-12.00); BUN/Creat Ratio 12.5 Ratio (12.00-20.00); Calcium 8.8 mg/dL (8.7-10.3); Carbon Dioxide 26.7 mmol/L (21.6-31.8); Chol/HDL Ratio 3.47; Potassium 3.8 mmol/L (3.5-5.5); Total Bilirubin 1.2 mg/dL (0.3-1.2); Total Protein 5.9 g/dL (6.2-8.2)
[2019-05-30 20:35] LABS: Urine Creatinine 227.7 mg/dL
== END | disposition home or self-care (01) ==
LOC: LABWHC1 09:20
PROVIDERS: ATTEND Internal Medicine Endocrinology, Diabetes & Metabolism
DX: E11.65 Type 2 diabetes mellitus with hyperglycemia (principal)
CPT/HCPCS: 36415; 80053; 80061; 82043; 82570; 83036; 84443

== ENCOUNTER → 2019-05-30 | Outpatient (CLI) | payer MEDICARE, OTHER ==
[2019-05-30 10:17] LABS: HCT 38.1 % (34.0-46.0); HGB 13.5 gm/dL (11.4-16.0); MCH 29.8 pg (25.0-35.0); MCHC 35.4 g/dL (31.0-37.0); Mean Platelet Volume 5.7; Platelet Count 315 k/uL (150-450); RBC 4.53 m/uL (3.80-5.40); WBC 4.5 k/uL (3.8-10.6)
== END ==
LOC: LABPAT 09:16
PROVIDERS: ATTEND Internal Medicine Clinical Cardiac Electrophysiology
DX: Z01.812 Encounter for preprocedural laboratory examination (principal); E78.5 Hyperlipidemia, unspecified; R55 Syncope and collapse
CPT/HCPCS: 36415; 80053; 80061; 82043; 82570; 83036; 84443; 85027

== ENCOUNTER 2019-06-13 11:47 | Day surgery (SDC) | payer MEDICARE, OTHER ==
[2019-06-09 14:47] VITALS: BMI 26.6
[~2019-06-13 11:47] MED LIST changes: +LACTATED RINGERS 1,000 ML IV SCH; +LIDOCAINE 1% 20 ML VIAL (10MG/ML) FOR IV START INTRADERMA PRN
[2019-06-13 12:32] LABS: Glucose,Whole Blood 138 mg/dL (75-99)
[2019-06-13] MEDS ORDERED: ACETAMINOPHEN ORAL SUSP 160 MG/5 ML CUP PO ONE (12:49)
[2019-06-13] MEDS ORDERED: fentaNYL (PF) 50 MCG/ML 2 ML AMP ONE (16:12)
[2019-06-13] MEDS ORDERED: MIDAZOLAM 2 MG/2 ML VIAL ONE (16:12)
[2019-06-13] MEDS ORDERED: ISOPROTERENOL 250 MCG/1.25 ML SYR IV ONE (16:12)
[2019-06-13] MEDS ORDERED: LIDOCAINE 1% INJ 10MG/ML (20 ML MDV) ONE (16:26)
[2019-06-13] MEDS ORDERED: LACTATED RINGERS 1,000 ML IV ONE (16:30)
[2019-06-13] MEDS ORDERED: LIDOCAINE 1% INJ 10MG/ML (20 ML MDV) SQ ONE (16:42)
[2019-06-13] MEDS ORDERED: ACETAMINOPHEN IV (For NPO) 1,000 MG in EMPTY BAG 1 BAG IVPB ONE (18:16)
[2019-06-13] MEDS ORDERED: HYDROcodone/APAP 5-325MG 1 EACH TAB PO PRN (18:16)
[2019-06-13] MEDS ORDERED: ACETAMINOPHEN TAB 325 MG TAB PO PRN (18:16)
--- NOTE | 2019-06-13 18:21 | P.PRLE ---
RE: Maral Bergeron Dear Kaylee Alicia underwent a diagnostic EP study for evaluation for recurrent palpitations. The EP study was completely normal. She did feel her symptoms of palpitations during Isuprel infusion with sinus tachycardia. It is quite likely that this may represent fluctuations in blood pressure or very mild dysautonomia. I would not recommend any treatment other than diabetes control and lifestyle modification at this point Thank you for entrusting me with the care of the patient Warm regards Sincerely Lonnie Yee
[2019-06-13 18:59] VITALS: RESP 18
[2019-06-13 20:09] LABS: Glucose,Whole Blood 208 mg/dL (75-99)
[2019-06-13] MEDS ORDERED: FLUTICASONE 110 MCG INHALER (BULK) INHALATION PRN (21:18)
[2019-06-13] MEDS ORDERED: INSULIN LISPRO 4 UNIT SQ PRN ×2 (21:18→21:37)
[2019-06-13] MEDS ORDERED: INSULIN GLARGINE 10 UNIT SQ PRN (21:18)
[2019-06-13] MEDS ORDERED: ALBUTEROL NEBULIZED 2.5 MG/3 ML INHALATION PRN (21:18)
[2019-06-13] MEDS ORDERED: CYCLOBENZAPRINE 5 MG TAB PO SCH (21:30)
[2019-06-13] MEDS ORDERED: ATORVASTATIN 80 MG TAB PO SCH (21:30)
[2019-06-13] MEDS ORDERED: LATANOPROST 0.005% OPHTH DROPS 2.5 ML BTL BOTH EYES SCH (21:30)
[2019-06-13] MEDS ORDERED: clonazePAM 0.5 MG TAB PO SCH (21:30)
[2019-06-13] MEDS ORDERED: LORATADINE 10 MG TAB PO SCH (21:30)
[2019-06-13] MEDS ORDERED: MIRTAZAPINE 15 MG TAB PO SCH (21:30)
[2019-06-13] MEDS ORDERED: MONTELUKAST 10 MG TAB PO SCH (21:30)
[2019-06-13] MEDS ORDERED: GABAPENTIN 300 MG CAP PO SCH (21:30)
[2019-06-13] MEDS ORDERED: INSULIN DETEMIR (LEVEMIR) 100 UNIT/ML SYR SQ SCH (21:45)
--- NOTE | 2019-06-13 23:30 | PCN ---
PROCEDURE NOTE 43-year-old female with recurrent palpitations, but for diagnostic EP study and possible radiofrequency ablation. Patient was brought to the EP lab in a fasting state. Written informed consent was obtained prior to the procedure. The right and left groins were prepped and draped as per protocol. 1% lidocaine was used for local anesthesia. Three venous sheaths were placed in the right femoral vein. Via these 3 diagnostic catheters were positioned the right heart (high right atrial catheter, His bundle catheter, RV catheter). Baseline measurements were as follows: Sinus cycle length 851 milliseconds, IN interval 157 milliseconds, QRS 90 milliseconds, QT 401 milliseconds. AH interval 80 milliseconds, HV interval 33 milliseconds. Para Hisian pacing was performed and meghan response was noted. During atrial pacing, no delta waves are noted. No slow pathway was noted. Sinus node recovery times of 600, 500 and 400 milliseconds were 1231, 1231 and 1076 milliseconds. Corresponding corrected sinus node recovery times were within normal limits. AV node Wenckebach block 310 milliseconds, VA Wenckebach block 360 milliseconds. Atrial extra stimulation was performed from the high right atrium. AV node ERP was 600/less than 300/300 milliseconds and atrial ERP 600/240 milliseconds. Ventricular ERP 500/220 milliseconds. Burst stimulation from the right ventricle from 400 milliseconds down to 200 milliseconds. No SVT induced, no VT induced. Isuprel was started wide open and then 2 mics and later once again wide open and then testing performed on Isuprel as well as during Isuprel recovery. AV node Wenckebach block 250 milliseconds, VA Wenckebach block 230 milliseconds. AV node ERP 400/230/240 milliseconds and ventricular ERP 400/less than 200/less than 200 milliseconds. AV node Wenckebach block 230 milliseconds, VA Wenckebach block 220 milliseconds, atrial ERP 500/240/270/250 milliseconds. Burst stimulation from the right ventricle from 400 milliseconds down to 300 milliseconds. All catheters were then removed at the end of the procedure. The patient was transferred to telemetry. RESULT: Diagnostic EP study revealin. Normal baseline measurements. 2. Normal AV node. 3. No inducible supraventricular tachycardia. 4. No inducible VT. 5. Meghan response to para Hisian pacing. PLAN: 1. No indication for any radiofrequency ablation. No medical treatment at this time. 2. Lifestyle modification. 3. Diabetes control. 4. Strength training of lower extremities. MMODL / IJN: [id number] /
[2019-06-14 06:33] LABS: Glucose,Whole Blood 220 mg/dL (75-99)
[2019-06-14] MEDS: INSULIN ASPART (NovoLOG) 100 UNIT/ML VIAL SQ SCH ×2 (09:04→12:15)
[2019-06-14 11:21] VITALS: BP 118/78; PULSE 82; TEMP 97.3
[2019-06-14 11:36] LABS: Glucose,Whole Blood 193 mg/dL (75-99)
--- NOTE | 2019-06-14 13:31 | P.DS ---
Providers Attending physician: Lonnie Yee Primary care physician: [facility] Hospital Course: patient is a 43-year-old female with a past medical history significant for diabetes who presented for evaluation and management of recurrent palpitations and dizzy spells. she has tried fludrocortisone but this caused her to have vertigo. yesterday she underwent a diagnostic EP study which revealed normal baseline measurements, normal AV node function, and no inducible arrhythmias. patient has done well post procedure. she continues to have some mild dizziness with standing but has not had any falls or syncope. denies any palpitations, chest pain, dyspnea.left comfortably overnight, no orthopnea or PND. tolerated breakfast without any issues.no bleeding issues no arrhythmias overnight on telemetry most recent labs reviewed, sodium 136, potassium 3.8, BUN 10, creatinine 0.8 temperature 97.3F, pressure 118/78, oxygen saturation 99% on room air patient seen and examined resting comfortably in bed, in no acute distress Lungs clear to auscultation bilaterally, no rhonchi wheezing or crackles appreciated Heart is regular, normal S1-S2, no audible murmurs no elevated JVD no lower extremity edema Groin minimally tender to palpation,access site clean dry , no palpable hematomas impression Recurrent palpitations, status post EP study showing no inducible arrhythmias Plan educated patient to hydrate herself well, have a normal sodium diet, and strengthen her lower extremities Diabetes management per PCP Follow-up office visit in 2 weeks for groin check Plan - Discharge Summary Discharge Rx Participant: No New Discharge Prescriptions: No Action Montelukast Sodium [Singulair] 10 mg PO HS Mirtazapine [Remeron] 15 mg PO HS clonazePAM [KlonoPIN] 0.5 mg PO HS Latanoprost Ophth [Xalatan 0.005%] 1 drops BOTH EYES HS Budesonide [Pulmicort Flexhaler] 2 puff INHALATION RT-BID PRN PRN Reason: Shortness Of Breath Albuterol Inhaler [Ventolin Hfa Inhaler] 1 - 2 puff INHALATION RT-Q6H PRN PRN Reason: Shortness Of Breath Gabapentin [Neurontin] 300 mg PO HS Mirabegron [Myrbetriq] 50 mg PO HS Cyclobenzaprine [Flexeril] 5 mg PO HS Atorvastatin Calcium [Lipitor] 80 mg PO HS Loratadine [Claritin] 10 mg PO HS Insulin Glargine [Lantus] 10 unit SQ DIRECTED PRN PRN Reason: hyperglycemia INSULIN LISPRO (humaLOG) [humaLOG] 4 - 6 units SQ DIRECTED PRN PRN Reason: hyperglycemia Omalizumab [Xolair] 300 mg SQ DIRECTED Discharge Medication List Mirtazapine [Remeron] 15 mg PO HS 06/23/14 [History] Montelukast Sodium [Singulair] 10 mg PO HS 06/23/14 [History] clonazePAM [KlonoPIN] 0.5 mg PO HS 06/23/14 [History] Latanoprost Ophth [Xalatan 0.005%] 1 drops BOTH EYES HS 07/28/17 [History] Albuterol Inhaler [Ventolin Hfa Inhaler] 1 - 2 puff INHALATION RT-Q6H PRN 06/07/18 [History] Budesonide [Pulmicort Flexhaler] 2 puff INHALATION RT-BID PRN 06/07/18 [History] Atorvastatin Calcium [Lipitor] 80 mg PO HS 11/17/18 [History] Cyclobenzaprine [Flexeril] 5 mg PO HS 11/17/18 [History] Gabapentin [Neurontin] 300 mg PO HS 11/17/18 [History] Mirabegron [Myrbetriq] 50 mg PO HS 11/17/18 [History] INSULIN LISPRO (humaLOG) [humaLOG] 4 - 6 units SQ DIRECTED PRN 01/17/19 [History] Insulin Glargine [Lantus] 10 unit SQ DIRECTED PRN 01/17/19 [History] Loratadine [Claritin] 10 mg PO HS 01/17/19 [History] Omalizumab [Xolair] 300 mg SQ DIRECTED 05/04/19 [History]
== END 2019-06-14 14:43 | disposition home or self-care (01) ==
LOC: CATHEP 11:47 → 1SOBS 17:46 → CATHEP 06-14 14:43
PROVIDERS: ATTEND Internal Medicine Clinical Cardiac Electrophysiology
DX: R00.2 Palpitations (principal); I42.9 Cardiomyopathy, unspecified; I47.1 Supraventricular tachycardia; E78.5 Hyperlipidemia, unspecified; G43.909 Migraine, unspecified, not intractable, without status migrainosus; M06.9 Rheumatoid arthritis, unspecified; E11.39 Type 2 diabetes mellitus with other diabetic ophthalmic complication; H42 Glaucoma in diseases classified elsewhere; Z86.718 Personal history of other venous thrombosis and embolism; Z87.891 Personal history of nicotine dependence; Z88.0 Allergy status to penicillin; Z88.1 Allergy status to other antibiotic agents; Z88.8 Allergy status to other drugs, medicaments and biological substances; Z88.6 Allergy status to analgesic agent; K21.9 Gastro-esophageal reflux disease without esophagitis; K58.9 Irritable bowel syndrome, unspecified; Z79.899 Other long term (current) drug therapy
CPT/HCPCS: 93623; 93620; C1894; C1769 ×2; C1730 ×2; J2250; J2001; J3010

== ENCOUNTER 2019-07-07 02:53 | Emergency (ER) | payer MEDICARE, OTHER ==
[2019-07-07 03:05] VITALS: BP 129/85; PULSE 74; RESP 18; TEMP 98.1
[2019-07-07] MEDS ORDERED: HYDROcodone/APAP 5-325MG 1 EACH TAB PO STA (03:10)
--- NOTE | 2019-07-07 03:17 | ED ---
Upper Extremity HPI - General Chief Complaint: Extremity Injury, Upper Stated Complaint: Fall, R Arm Injury Time Seen by Provider: 07/07/19 03:06 Source: patient Mode of arrival: ambulatory Limitations: no limitations - History of Present Illness Initial Comments: 44 year-old female patient presents to the emergency department today for evaluation of right wrist pain after experiencing a fall. Patient states approximately 30 minutes prior to arrival she was taking the trash out when she slipped and fell on the stairs. Patient states that she caught herself with her right arm. She denies hitting her head or losing consciousness. Denies any neck or back injury. Patient is reporting pain to the ulnar aspect of the arm. Patient states she is experiencing some tingling in her right fifth digit however this is chronic for her and she has a history of carpal tunnel. She denies taking any medication for pain prior to arrival. Patient denies any headache, neck pain, back pain, chest pain, shortness of breath, dizziness, weakness, abdominal pain, nausea, vomiting, or difficulties with bowel movements or urination. - Related Data Home Medications Medication Instructions Recorded Confirmed Mirtazapine [Remeron] 15 mg PO HS 06/23/14 07/04/19 Montelukast Sodium [Singulair] 10 mg PO HS 06/23/14 07/04/19 clonazePAM [KlonoPIN] 0.5 mg PO HS 06/23/14 07/04/19 Latanoprost Ophth [Xalatan 0.005%] 1 drops BOTH EYES HS 07/28/17 07/04/19 Albuterol Inhaler [Ventolin Hfa 1 - 2 puff INHALATION RT-Q6H PRN 06/07/18 07/04/19 Inhaler] Budesonide [Pulmicort Flexhaler] 2 puff INHALATION RT-BID PRN 06/07/18 07/04/19 Atorvastatin Calcium [Lipitor] 80 mg PO HS 11/17/18 07/04/19 Cyclobenzaprine [Flexeril] 5 mg PO HS 11/17/18 07/04/19 Gabapentin [Neurontin] 300 mg PO HS 11/17/18 07/04/19 Mirabegron [Myrbetriq] 50 mg PO HS 11/17/18 07/04/19 INSULIN LISPRO (humaLOG) [humaLOG] 4 - 6 units SQ DIRECTED PRN 01/17/19 07/04/19 Insulin Glargine [Lantus] 10 unit SQ DIRECTED PRN 01/17/19 07/04/19 Loratadine [Claritin] 10 mg PO HS 01/17/19 07/04/19 Omalizumab [Xolair] 300 mg SQ DIRECTED 05/04/19 07/04/19 Previous Rx's Medication Instructions Recorded Hydrocodone/Acetaminophen [Dedham 1 tab PO Q6HR PRN #12 tab 07/07/19 5-325] Allergies Allergy/AdvReac Type Severity Reaction Status Date / Time cefazolin Allergy Unknown Verified 07/04/19 08:25 erythromycin base Allergy TOLD BY DR Verified 07/04/19 08:25 NOT TO TAKE -GASTRIC SLEEVE ibuprofen Allergy HISTORY OF Verified 07/04/19 08:25 GASTRIC SLEEVE-NOT TO TAKE PER DR" NSAIDS (Non-Steroidal Allergy Unknown Verified 07/04/19 08:25 Anti-Inflamma sumatriptan [From Imitrex] Allergy AGITATION,H Verified 07/04/19 08:25 ALLUCINATIO NS sumatriptan succinate Allergy Hallucinati Verified 07/04/19 08:25 [From Imitrex] ons topiramate [From Topamax] Allergy Hallucinati Verified 07/04/19 08:25 ons vancomycin Allergy RED MAN Verified 07/04/19 08:25 SYNDROME,SHORTNESS OF BREATH fludrocortisone AdvReac Unknown Verified 07/04/19 08:25 Penicillins AdvReac Anaphylaxis Verified 07/04/19 08:25 benzoperoxide Allergy Rash/Hives Uncoded 07/04/19 08:25 Review of Systems ROS Statement: Those systems with pertinent positive or pertinent negative responses have been documented in the HPI. ROS Other: All systems not noted in ROS Statement are negative. Past Medical History Past Medical History: Supraventricular Tachycardia (SVT) Additional Past Medical History / Comment(s): MIGRAINE, FATTY LIVER,IRRITABLE BOWEL. BLOOD RIGHT LEG. History of Any Multi-Drug Resistant Organisms: MRSA, Other MDRO Date of last positivie culture/infection: 2013 MDRO Source:: nasal Past Surgical History: Adenoidectomy, Bariatric Surgery, Breast Surgery, Section, Cholecystectomy, Hernia Repair, Tonsillectomy, Tubal Ligation Additional Past Surgical History / Comment(s): deviated septum,GASTRIC SLEEVE ,D&C,LAP BAN, LAP BAND REMOVAL,UMBILICAL HERNIA,INCISIONAL HERNIA,RIGHT ANKLE SURGERY,CYST BIOPSY Past Anesthesia/Blood Transfusion Reactions: Postoperative Nausea & Vomiting (PONV) Past Psychological History: Anxiety, Bipolar, PTSD Smoking Status: Former smoker - Past Family History Mother Family Medical History: No Reported History Father Family Medical History: Myocardial Infarction (NH) Additional Family Medical History / Comment(s): Father of a massive NH following laser eye surgery. Sister(s) Family Medical History: Deep Vein Thrombosis (DVT) General Exam Limitations: no limitations General appearance: alert, in no apparent distress, other (This is a well- developed, well-nourished adult female patient in no acute distress.) Head exam: Present: atraumatic Eye exam: Present: normal appearance, PERRL, EOMI. Absent: scleral icterus, conjunctival injection, periorbital swelling ENT exam: Present: normal exam, mucous membranes moist Respiratory exam: Present: normal lung sounds bilaterally. Absent: respiratory distress, wheezes, rales, rhonchi, stridor Cardiovascular Exam: Present: regular rate, normal rhythm, normal heart sounds. Absent: systolic murmur, diastolic murmur, rubs, gallop, clicks GI/Abdominal exam: Present: soft, normal bowel sounds. Absent: distended, tenderness, guarding, rebound, rigid Extremities exam: Present: full ROM, tenderness (Tenderness over the ulnar aspect of the distal right forearm), normal capillary refill, other (There is soft tissue swelling and ecchymosis noted over the ulnar aspect of the right distal forearm. Skin is otherwise pink, warm, dry. Cap refills less than 3 seconds. Radial pulses 2+ and equal bilaterally). Absent: normal inspection, pedal edema, joint swelling, calf tenderness Neurological exam: Present: alert, oriented X3, CN II-XII intact Psychiatric exam: Present: normal affect, normal mood Skin exam: Present: warm, dry, intact, normal color. Absent: rash Course Vital Signs 07/07/19 02:58 Temperature 98.1 F Pulse Rate 74 Respiratory 18 Rate Blood Pressure 129/85 O2 Sat by Pulse 100 Oximetry Procedures - Orthopedic Splinting/Casting Injury #1 Side: right Upper Extremity Injury Location: short arm, wrist Upper Extremity Immobilizer: posterior splint, Jonny wrap Additional Comments: Well padded with web rill. Neurovascular status is intact after splint application. Skin to the fingers is pink, warm, and dry. Pt denies new numbness or tingling. Medical Decision Making - Medical Decision Making 44 year-old female patient presented to the emergency department today for evaluation after experiencing a fall. Patient is reporting right wrist pain. Physical examination did reveal soft tissue swelling, tenderness, and ecchymosis at the ulnar aspect of the distal forearm. Neurovascular status is intact. X- rays obtained There is area of concern over the distal radius and point tenderness over the right ulnar styloid. Concern for occult fracture. Patient was splinted. She'll be discharged home to follow-up with patient account specialist for further evaluation as soon as possible. She is given prescription for pain medication. She is instructed to follow-up with her primary care physician for recheck in 1-2 days. Return parameters discussed in detail. She verbalizes understanding and agrees with this plan. - Radiology Data Radiology results: report reviewed, image reviewed Disposition Clinical Impression: Right wrist injury Disposition: HOME SELF-CARE Condition: Good Instructions (If sedation given, give patient instructions): Wrist Fracture in Adults (ED) Additional Instructions: Keep splint in place until follow up with patient account specialist. Take medication as directed for pain. Rest, ice, and elevate the extremity. Return to the emergency department for any new, worsening, or concerning symptoms. Prescriptions: Hydrocodone/Acetaminophen [Dedham 5-325] 1 tab PO Q6HR PRN #12 tab PRN Reason: Pain Is patient prescribed a controlled substance at d/c from ED?: No Referrals: Kaylee Bond MD [Primary Care Provider] - 1-2 days Sebastián Wyman MD [STAFF PHYSICIAN] - 1-2 days Time of Disposition: 03:31
--- NOTE | 2019-07-07 03:44 | XR ---
EXAMINATION TYPE: XR wrist complete RT DATE OF EXAM: 07/07/2019 COMPARISON: NONE HISTORY: Pain TECHNIQUE: 4 views FINDINGS: Carpal bones are intact. I see no fracture nor dislocation. There are no erosions. Joint sp aces are fairly normal. IMPRESSION: Negative right wrist exam. No fracture seen.
== END 2019-07-07 04:01 | disposition home or self-care (01) ==
LOC: EC 02:53
DX: S50.11XA Contusion of right forearm, initial encounter (principal); F31.9 Bipolar disorder, unspecified; F43.10 Post-traumatic stress disorder, unspecified; Z86.14 Personal history of Methicillin resistant Staphylococcus aureus infection; Z87.891 Personal history of nicotine dependence; Z87.39 Personal history of other diseases of the musculoskeletal system and connective tissue; Z79.899 Other long term (current) drug therapy; Z88.1 Allergy status to other antibiotic agents; Z88.6 Allergy status to analgesic agent; Z88.8 Allergy status to other drugs, medicaments and biological substances; Z88.0 Allergy status to penicillin; W01.0XXA Fall on same level from slipping, tripping and stumbling without subsequent striking against object, initial encounter; Y92.009 Unspecified place in unspecified non-institutional (private) residence as the place of occurrence of the external cause
CPT/HCPCS: 29125; 99283

== ENCOUNTER → 2020-02-06 | Outpatient (CLI) | payer MEDICARE, OTHER ==
--- NOTE | 2020-02-06 14:23 | US ---
EXAMINATION TYPE: US transvaginal DATE OF EXAM: 02/06/2020 COMPARISON: Pelvic ultrasound May 20, 2019 CLINICAL HISTORY: N92.0 excessive and frequent menses. TECHNIQUE: Transvaginal (TV). Patient has hx of ablation and tubal ligation. Patient investigating tubal ligation reversal. Date of LMP: 02/03/20 EXAM MEASUREMENTS: Uterus: 9.0 x 3.8 x cm Endometrial Stripe: 2.1 cm Right Ovary: 2.9 x 1.4 x 1.5 cm Left Ovary: 1.9 x 1.4 x 1.5 cm 1. Uterus: Anteverted wnl 2. Endometrium: grossly thickened, heterogeneous, with scattered echogenic foci throughout, towards the KAROL there is a hypoechoic mass measuring 0.7 x 0.5 x 0.6cm 3. Right Ovary: wnl 4. Left Ovary: wnl 5. Bilateral Adnexa: wnl 6. Posterior cul-de-sac: wnl A few scattered nabothian cysts throughout the cervix. Slightly anteverted uterus. Poor visualization of endometrium which is heterogeneous and suspected thickened. No free fluid in pelvic cul-de-sac. Both ovaries seen and normal in size. IMPRESSION: Poor visualization of endometrium, cannot exclude recurrent abnormal thickening. Consider dilatation and curettage follow-up.
[2020-02-07 01:25] LABS: Luteinizing Hormone 2.9 mIU/mL
== END | disposition home or self-care (01) ==
LOC: RADUSWWP 13:12
PROVIDERS: ATTEND Obstetrics & Gynecology
DX: N92.6 Irregular menstruation, unspecified (principal)
CPT/HCPCS: 76830; 82670; 83001; 83002; 84144

== ENCOUNTER → 2020-04-13 | Outpatient (CLI) | payer MEDICARE, OTHER ==
[2020-04-13 17:49] LABS: Hemoglobin A1C 7.8 % (4.0-6.0)
[2020-04-13 18:03] LABS: African American GFR (CKD) 120.4 (60.0-200.0); Albumin 3.9 g/dL (3.80-4.90); Albumin/Globulin Ratio 1.63 (1.60-3.17); BUN/Creat Ratio 18.57 Ratio (12.00-20.00); Calcium 8.8 mg/dL (8.7-10.3); Chol/HDL Ratio 2.33; Globulin 2.4 g/dL (1.6-3.3); LDL Cholesterol,Calculated 41.6 mg/dL (0.0-131.0); Non-African American GFR(CKD) 103.9 (60.0-200.0); Potassium 3.7 mmol/L (3.5-5.5); Total Bilirubin 0.9 mg/dL (0.2-1.2); Total Protein 6.3 g/dL (6.2-8.2); VLDL Calculation 10.4 mg/dL (5.00-40.00)
[2020-04-13 18:36] LABS: Urine Creatinine 232.8 mg/dL
== END | disposition home or self-care (01) ==
LOC: LABWHC1 07:47
PROVIDERS: ATTEND Internal Medicine Endocrinology, Diabetes & Metabolism
DX: E11.65 Type 2 diabetes mellitus with hyperglycemia (principal)
CPT/HCPCS: 36415; 80053; 80061; 82043; 82570; 83036; 84443

== ENCOUNTER → 2020-05-21 | Outpatient (CLI) | payer MEDICARE, OTHER ==
--- NOTE | 2020-05-23 08:48 | MM ---
Reason for exam: screening (asymptomatic). Last mammogram was performed 1 year ago. History: Benign excisional biopsy of the left breast, 2000. Physical Findings: A clinical breast exam by your physician is recommended on an annual basis and results should be correlated with mammographic findings. MG 3D Screening Mammo W/Cad Bilateral CC and MLO view(s) were taken. Prior study comparison: May 20, 2019, bilateral MG 3d screening mammo w/cad. February 16, 2018, bilateral MG 3d screening mammo w/cad. There are scattered fibroglandular densities. Benign bilateral oil cyst calcifications greater in the right breast. Right posterior lateral asymmetric density unchanged from 2019. Subareolar asymmetric density right MLO view does not persist on 3D images. No significant changes when compared with prior studies. ASSESSMENT: Benign, BI-RAD 2 RECOMMENDATION: Routine screening mammogram of both breasts in 1 year.
== END | disposition home or self-care (01) ==
LOC: RADMAMWWP 16:06
PROVIDERS: ATTEND Family Medicine
DX: Z12.31 Encounter for screening mammogram for malignant neoplasm of breast (principal)
CPT/HCPCS: 77063; 77067

== ENCOUNTER → 2020-08-24 | Outpatient (CLI) | payer MEDICARE, OTHER ==
[2020-08-24 09:00] LABS: HCT 42.1 % (34.0-46.0); HGB 14.3 gm/dL (11.4-16.0); MCH 28.8 pg (25.0-35.0); MCV 84.7 fL (80.0-100.0); Platelet Count 274 k/uL (150-450); RBC 4.97 m/uL (3.80-5.40); RDW 12.4 % (11.5-15.5); WBC 5.5 k/uL (3.8-10.6)
== END | disposition home or self-care (01) ==
LOC: LABWHC1 08:25
DX: Z13.0 Encounter for screening for diseases of the blood and blood-forming organs and certain disorders involving the immune mechanism (principal)
CPT/HCPCS: 36415; 85027

== ENCOUNTER → 2020-10-29 | Outpatient (CLI) | payer MEDICARE, OTHER ==
[2020-10-29 21:12] LABS: Follicle Stimulating Hormone 11.2 mIU/mL
== END | disposition home or self-care (01) ==
LOC: LABWHC1 09:49
PROVIDERS: ATTEND Obstetrics & Gynecology Maternal & Fetal Medicine
DX: E34.9 Endocrine disorder, unspecified (principal)
CPT/HCPCS: 36415; 82306; 82397; 82607; 83001; 84443

== ENCOUNTER → 2020-10-29 | Outpatient (CLI) | payer MEDICARE, OTHER ==
[2020-10-29 21:13] LABS: African American GFR (CKD) 119.6 (60.0-200.0); Albumin 4.4 g/dL (3.80-4.90); Albumin/Globulin Ratio 1.57 (1.60-3.17); Anion Gap 8.4 mmol/L (4.00-12.00); BUN/Creat Ratio 15.71 Ratio (12.00-20.00); Calcium 9.1 mg/dL (8.7-10.3); Carbon Dioxide 27.6 mmol/L (21.6-31.8); Globulin 2.8 g/dL (1.6-3.3); Non-African American GFR(CKD) 103.2 (60.0-200.0); Potassium 4.1 mmol/L (3.5-5.5); Total Bilirubin 1.4 mg/dL (0.3-1.2); Total Protein 7.2 g/dL (6.2-8.2)
[2020-10-29 21:21] LABS: Hemoglobin A1C 7.1 % (4.0-6.0)
[2020-10-30 02:30] LABS: Urine Creatinine 176.2 mg/dL
== END | disposition home or self-care (01) ==
LOC: LABWHC1 09:52
PROVIDERS: ATTEND Internal Medicine Endocrinology, Diabetes & Metabolism
DX: E11.65 Type 2 diabetes mellitus with hyperglycemia (principal)
CPT/HCPCS: 36415; 80053; 80061; 82043; 82570; 83036

== ENCOUNTER → 2020-11-22 | Outpatient (CLI) | payer MEDICARE, OTHER ==
--- NOTE | 2020-11-22 11:33 | US ---
EXAMINATION TYPE: US abdomen complete DATE OF EXAM: 11/22/2020 COMPARISON: US dated 06/08/[address] dated 07/02/2017 CLINICAL HISTORY: R10.13 epigastric pain K21.9 GERD. Pt states GERD, Epigastric pain, GB removed EXAM MEASUREMENTS: Liver Length: 15.7 cm, possibly under represented size due to measuring technique CBD: 0.7 cm Spleen: 12.0 cm Right Kidney: 11.7 x 5.3 x 6.0 cm Left Kidney: 11.9 x 5.3 x 5.1 cm Pancreas: wnl, tail obscured by overlying bowel gas Liver: Slightly difficult to penetrate, otherwise appeared wnl Gallbladder: Surgically absent Evidence for sonographic Sung's sign: No CBD: wnl Spleen: wnl Right Kidney: wnl Left Kidney: wnl Upper IVC: wnl Abd Aorta: wnl, distal portion gassed out The liver is homogenous. The intrahepatic portion of the IVC and proximal abdominal aorta are within normal limits. Common bile duct is unremarkable. The visualized portions of the pancreas are homog enous. The spleen is unremarkable. Kidneys are symmetric and free of hydronephrosis. No renal lesi ons are seen. IMPRESSION: Postcholecystectomy change, correlate for possible hepatic steatosis as noted on prior ul trasound and CT
--- NOTE | 2020-11-22 12:45 | FL ---
EXAMINATION TYPE: FL UGI air w small bowel DATE OF EXAM: 11/22/2020 COMPARISON: CT abdomen and pelvis July 02, 2017 HISTORY: History of lap band surgery 2009 due to morbid obesity with lap band removal and gastric sle emmanuel conversion 2013 with subsequent Kemar-en-Y gastric bypass surgery 2018 presents with abdominal yohannes n reflux-like symptoms. TECHNIQUE: A single contrast UGI study is performed with small bowel follow through. Approximately 6 0 seconds of fluoroscopic time. 35 spot images saved to PACS. FINDINGS: [employer] Prospecting Surveyor image of the abdomen shows surgical sutures left upper to mid abdomen from gastric b ypass surgery. Overall nonobstructive bowel gas pattern. Rectangular shape air filled structure lower pelvis corresponds to tampon use. Cholecystectomy clips. The esophagus shows satisfactory motility and emptying into the gastric remnant. No evidence of hiat al hernia or stricture noted. The remnant stomach is small in caliber with rapid transition into the efferent anastomotic small bow el loop. The small bowel study shows normal transit to the colon in less than 75 minutes. There is normal muc osal fold pattern throughout the small bowel. There is no evidence of any stricture or filling defec t noted. The terminal ileum is within normal limits. IMPRESSION: Gastric bypass changes without obstruction. No suspicious abnormality.
== END | disposition home or self-care (01) ==
LOC: RADUSWWP 07:39
PROVIDERS: ATTEND Family Medicine
DX: R10.84 Generalized abdominal pain (principal); K21.9 Gastro-esophageal reflux disease without esophagitis; E80.7 Disorder of bilirubin metabolism, unspecified
CPT/HCPCS: 74240; 74248; 76700

== ENCOUNTER → 2020-12-14 | Outpatient (CLI) | payer MEDICARE, OTHER ==
[2020-12-14 22:23] LABS: Luteinizing Hormone 5.7 mIU/mL
[2020-12-14 22:24] LABS: Estradiol 48.3 pg/mL; Follicle Stimulating Hormone 12.8 mIU/mL
[2020-12-14 23:11] LABS: Hepatitis B Surface AB- Quant >1000.0 mIU/mL; Hepatitis B Surface Antibody Reactive (Non-Reactive)
[2020-12-14 23:12] LABS: Progesterone 0.5 ng/mL
[2020-12-14 23:53] LABS: Mumps Virus IgG Ab Interp NEGATIVE (NEGATIVE); Mumps Virus IgG Antibody 0.6 AI
== END | disposition home or self-care (01) ==
LOC: LABWHC1 12:21
PROVIDERS: ATTEND Family Medicine
DX: Z01.84 Encounter for antibody response examination (principal); N97.9 Female infertility, unspecified
CPT/HCPCS: 36415; 82397; 82670; 83001; 83002; 84144; 84443; 86706; 86735; 86762; 86765; 86787

== ENCOUNTER 2021-01-10 11:16 | Emergency (ER) | payer MEDICARE, OTHER ==
[2021-01-10 11:32] VITALS: BP 128/86; PULSE 66; RESP 20; TEMP 98.2
--- NOTE | 2021-01-10 12:03 | ED ---
Female Urogenital HPI - General Chief complaint: Vaginal Bleeding Stated complaint: Vaginal Bleeding Time Seen by Provider: 01/10/21 11:39 Source: patient Mode of arrival: ambulatory Limitations: no limitations - History of Present Illness Initial comments: Patient is a 45-year-old female with history of diabetes, presenting to the emergency Department with complaints of vaginal bleeding, passing clots and possible . Patient states she had tubal ligation reversal performed in August in [place]. She states she's been having regular periods since. Patient states she has been 3 days late for her menstrual cycle, took an at home test which was negative. She states early this morning at approximately 1 AM she was having a lot of left lower quadrant discomfort, past a few very large blood clots, dark tissue. She's been having on and off bleeding since. Nothing that's been continuous. She states she still pretty sore in the left lower quadrant although the pain has improved. She admits to history of gastric bypass, C-sections, tubal ligation and tubal reversal. She denies any nausea or vomiting, no diarrhea, regular bowel movements. She denies any chest pain or shortness of breath. No fevers or chills, no dysuria. She has no further complaints at this time. Arrival to the ER, her vitals are stable. Last Menstrual Period: 12/09/20 - Related Data Home Medications Medication Instructions Recorded Confirmed Mirtazapine [Remeron] 15 mg PO HS 06/23/14 01/10/21 Montelukast Sodium [Singulair] 10 mg PO HS 06/23/14 01/10/21 clonazePAM [KlonoPIN] 0.5 mg PO HS 06/23/14 01/10/21 Latanoprost Ophth [Xalatan 0.005%] 1 drops BOTH EYES HS 07/28/17 01/10/21 Budesonide [Pulmicort Flexhaler] 2 puff INHALATION RT-BID PRN 06/07/18 01/10/21 Gabapentin [Neurontin] 300 mg PO HS 11/17/18 01/10/21 Mirabegron [Myrbetriq] 50 mg PO HS 11/17/18 01/10/21 INSULIN LISPRO (humaLOG) [humaLOG] See Protocol SQ AC-TID PRN 01/17/19 01/10/21 Insulin Glargine [Lantus] 30 unit SQ DAILY PRN 01/17/19 01/10/21 Loratadine [Claritin] 10 mg PO HS 01/17/19 01/10/21 Omalizumab [Xolair] 300 mg SQ Q30D 05/04/19 01/10/21 Ascorbic Acid [Vitamin C] 250 mg PO BID 01/10/21 01/10/21 Betaine Anhydrous Trimehylgylcine 1 tab PO DAILY 01/10/21 01/10/21 Biotin 10,000 mcg PO BID 01/10/21 01/10/21 Black Cohosh 540 mg PO DAILY 01/10/21 01/10/21 Calcium Citrate/Vitamin D3 1 tab PO BID 01/10/21 01/10/21 [Calcium Cit 315-Vit D3 6.25 Mcg (250 Iu)] Chlorhexidine Gluconate [Peridex] 15 ml PO BID 01/10/21 01/10/21 Cholecalciferol [Vitamin D3 (25 25 mcg PO BID 01/10/21 01/10/21 Mcg = 1000 Iu)] Clindamycin Pledget 1% 1 applic TOPICAL BID 01/10/21 01/10/21 Cyanocobalamin [Vitamin B-12] 500 mcg PO BID 01/10/21 01/10/21 Cysteine HCl [l-Cysteine] 500 mg PO DAILY 01/10/21 01/10/21 Folate 800 mcg PO DAILY 01/10/21 01/10/21 Meclizine [Antivert] 25 mg PO TID PRN 01/10/21 01/10/21 Melatonin 5 mg PO HS 01/10/21 01/10/21 Midodrine HCl [ProAmantine] 2.5 mg PO TID 01/10/21 01/10/21 Mv-Min/Folic/Vit K/Lut/[id number] 1 tab PO DAILY 01/10/21 01/10/21 [Alive Women's 50 Plus Tablet] Nicomide 750mg 750 mg PO BID 01/10/21 01/10/21 Nystatin 100,000 Unit/ml Susp 5 ml PO QID 01/10/21 01/10/21 [Mycostatin Oral Susp] Omeprazole 20 mg PO DAILY 01/10/21 01/10/21 Pedi Multivit No.25/Folic Acid 300 mcg PO BID 01/10/21 01/10/21 [Flintstones Multivit Chew Tab] Thiamine [Vitamin B-1] 100 mg PO DAILY 01/10/21 01/10/21 Ubidecarenone [Co Q-10] 100 mg PO BID 01/10/21 01/10/21 Allergies Allergy/AdvReac Type Severity Reaction Status Date / Time cefazolin Allergy Unknown Verified 01/10/21 12:32 erythromycin base Allergy TOLD BY DR Verified 01/10/21 12:32 NOT TO TAKE -GASTRIC SLEEVE ibuprofen Allergy HISTORY OF Verified 01/10/21 12:32 GASTRIC SLEEVE-NOT TO TAKE PER DR" NSAIDS (Non-Steroidal Allergy Unknown Verified 01/10/21 12:32 Anti-Inflamma sumatriptan [From Imitrex] Allergy AGITATION,H Verified 01/10/21 12:32 ALLUCINATIO NS sumatriptan succinate Allergy Hallucinati Verified 01/10/21 12:32 [From Imitrex] ons topiramate [From Topamax] Allergy Hallucinati Verified 01/10/21 12:32 ons vancomycin Allergy RED MAN Verified 01/10/21 12:32 SYNDROME,SHORTNESS OF BREATH fludrocortisone AdvReac Unknown Verified 01/10/21 12:32 Penicillins AdvReac Anaphylaxis Verified 01/10/21 12:32 benzoperoxide Allergy Rash/Hives Uncoded 01/10/21 11:32 Review of Systems ROS Statement: Those systems with pertinent positive or pertinent negative responses have been documented in the HPI. ROS Other: All systems not noted in ROS Statement are negative. Past Medical History Past Medical History: Asthma, Diabetes Mellitus, Deep Vein Thrombosis (DVT), GERD/Reflux, Hyperlipidemia, Rheumatoid Arthritis (RA) Additional Past Medical History / Comment(s): MIGRAINE, FATTY LIVER,IRRITABLE BOWEL. BLOOD RIGHT LEG. DIABETIC AUTONOMIC NEUROPATHY. History of Any Multi-Drug Resistant Organisms: MRSA, Other MDRO Date of last positivie culture/infection: 2013 MDRO Source:: nasal Past Surgical History: Adenoidectomy, Bariatric Surgery, Breast Surgery, Cesarea n Section, Cholecystectomy, Hernia Repair, Tonsillectomy, Tubal Ligation Additional Past Surgical History / Comment(s): deviated septum,GASTRIC SLEEVE,D&C,LAP BAN, LAP BAND REMOVAL,UMBILICAL HERNIA,INCISIONAL HERNIA,RIGHT ANKLE SURGERY,CYST BIOPSY Past Anesthesia/Blood Transfusion Reactions: Postoperative Nausea & Vomiting (PONV) Past Psychological History: Anxiety, Bipolar, PTSD Smoking Status: Former smoker Past Alcohol Use History: Rare Past Drug Use History: None Reported - Past Family History Mother Family Medical History: No Reported History Father Family Medical History: Myocardial Infarction (GA) Additional Family Medical History / Comment(s): Father of a massive GA following laser eye surgery. Sister(s) Family Medical History: Deep Vein Thrombosis (DVT) General Exam - General Exam Comments Initial Comments: GENERAL: Patient is well-developed and well-nourished. Patient is nontoxic and in no acute distress. HEAD: Atraumatic, normocephalic. EYES: Pupils equal round and reactive to light, extraocular movements intact, sclera anicteric, conjunctiva are normal. Eyelids were unremarkable. ENT: Nares patent, oropharynx clear without exudates. Moist mucous membranes. NECK: Normal range of motion, supple without lymphadenopathy or JVD. LUNGS: Unlabored respirations. Breath sounds clear to auscultation bilaterally and equal. No wheezes rales or rhonchi. HEART: Regular rate and rhythm without murmurs, rubs or gallops. ABDOMEN: Soft, tenderness with palpation suprapubic and left lower quadrant, normoactive bowel sounds. No guarding, no rebound. No masses appreciated. : Deferred MUSCULOSKELETAL: Normal extremities with adequate strength and normal range of motion, no pitting or edema. No clubbing or cyanosis. NEUROLOGICAL: Patient is alert and oriented x 3. SKIN: Warm, Dry, normal turgor, no rashes or lesions noted. Limitations: no limitations Course Vital Signs 01/10/21 11:27 Temperature 98.2 F Pulse Rate 66 Respiratory 20 Rate Blood Pressure 128/86 O2 Sat by Pulse 100 Oximetry Medical Decision Making - Medical Decision Making Patient is a 45-year-old female with history of hypertension, diabetes, presenting with complaints of vaginal bleeding, left lower quadrant discomfort over the past 24 hours. She had tubal ligation reversal in August, has been 3 days late on her menstrual cycle, negative at home tests. Labs are all within normal limits, hCG Quant is less than 2.4, urine shows no evidence of infection. Ultrasound shows evidence of a fibroid, no evidence of ovarian torsion. Patient's symptoms are very minimal at this time. I reviewed these findings with her. This is not a . If symptoms persist she can follow up with her [facility]. She is in agreement with this plan of care and is stable for discharge. Case discussed with Dr. Salvador. - Lab Data Result diagrams: 01/10/21 12:09 01/10/21 12:09 Lab Results 01/10/21 01/10/21 01/10/21 Range/Units 12:09 12:09 12:09 WBC 6.5 (3.8-10.6) k/uL RBC 4.92 (3.80-5.40) m/uL Hgb 14.5 (11.4-16.0) gm/dL Hct 41.6 (34.0-46.0) % MCV 84.5 (80.0-100.0) fL MCH 29.5 (25.0-35.0) pg MCHC 35.0 (31.0-37.0) g/dL RDW 12.8 (11.5-15.5) % Plt Count 348 (150-450) k/uL MPV 6.7 Neutrophils % 69 % Lymphocytes % 23 % Monocytes % 5 % Eosinophils % 1 % Basophils % 1 % Neutrophils # 4.5 (1.3-7.7) k/uL Lymphocytes # 1.5 (1.0-4.8) k/uL Monocytes # 0.3 (0-1.0) k/uL Eosinophils # 0.1 (0-0.7) k/uL Basophils # 0.0 (0-0.2) k/uL Sodium 138 (137-145) mmol/L Potassium 3.7 (3.5-5.1) mmol/L Chloride 103 (98-107) mmol/L Carbon Dioxide 30 (22-30) mmol/L Anion Gap 5 mmol/L BUN 8 (7-17) mg/dL Creatinine 0.48 L (0.52-1.04) mg/dL Est GFR (CKD-EPI)AfAm >90 (>60 ml/min/1.73 sqM) Est GFR (CKD-EPI)NonAf >90 (>60 ml/min/1.73 sqM) Glucose 180 H (74-99) mg/dL Calcium 9.5 (8.4-10.2) mg/dL Total Bilirubin 0.9 (0.2-1.3) mg/dL AST 28 (14-36) U/L ALT 23 (4-34) U/L Alkaline Phosphatase 101 (38-126) U/L Total Protein 7.3 (6.3-8.2) g/dL Albumin 4.3 (3.5-5.0) g/dL HCG, Quant <2.4 mIU/mL Urine Color Yellow Urine Appearance Clear (Clear) Urine pH 5.5 (5.0-8.0) Ur Specific [place] 1.023 (1.001-1.035) Urine Protein Trace H (Negative) Urine Glucose (UA) Negative (Negative) Urine Ketones 1+ H (Negative) Urine Blood Large H (Negative) Urine Nitrite Negative (Negative) Urine Bilirubin Negative (Negative) Urine Urobilinogen <2.0 (<2.0) mg/dL Ur Leukocyte Esterase Negative (Negative) Urine RBC 4 (0-5) /hpf Urine WBC 2 (0-5) /hpf Ur Squamous Epith Cells 1 (0-4) /hpf Urine Bacteria Rare H (None) /hpf Urine Mucus Moderate H (None) /hpf Blood Type Blood Type Recheck Bld Type Recheck Status 01/10/21 Range/Units 12:09 WBC (3.8-10.6) k/uL RBC (3.80-5.40) m/uL Hgb (11.4-16.0) gm/dL Hct (34.0-46.0) % MCV (80.0-100.0) fL MCH (25.0-35.0) pg MCHC (31.0-37.0) g/dL RDW (11.5-15.5) % Plt Count (150-450) k/uL MPV Neutrophils % % Lymphocytes % % Monocytes % % Eosinophils % % Basophils % % Neutrophils # (1.3-7.7) k/uL Lymphocytes # (1.0-4.8) k/uL Monocytes # (0-1.0) k/uL Eosinophils # (0-0.7) k/uL Basophils # (0-0.2) k/uL Sodium (137-145) mmol/L Potassium (3.5-5.1) mmol/L Chloride (98-107) mmol/L Carbon Dioxide (22-30) mmol/L Anion Gap mmol/L BUN (7-17) mg/dL Creatinine (0.52-1.04) mg/dL Est GFR (CKD-EPI)AfAm (>60 ml/min/1.73 sqM) Est GFR (CKD-EPI)NonAf (>60 ml/min/1.73 sqM) Glucose (74-99) mg/dL Calcium (8.4-10.2) mg/dL Total Bilirubin (0.2-1.3) mg/dL AST (14-36) U/L ALT (4-34) U/L Alkaline Phosphatase (38-126) U/L Total Protein (6.3-8.2) g/dL Albumin (3.5-5.0) g/dL HCG, Quant mIU/mL Urine Color Urine Appearance (Clear) Urine pH (5.0-8.0) Ur Specific [place] (1.001-1.035) Urine Protein (Negative) Urine Glucose (UA) (Negative) Urine Ketones (Negative) Urine Blood (Negative) Urine Nitrite (Negative) Urine Bilirubin (Negative) Urine Urobilinogen (<2.0) mg/dL Ur Leukocyte Esterase (Negative) Urine RBC (0-5) /hpf Urine WBC (0-5) /hpf Ur Squamous Epith Cells (0-4) /hpf Urine Bacteria (None) /hpf Urine Mucus (None) /hpf Blood Type A Positive Blood Type Recheck No Previous Record Bld Type Recheck Status [facility] ONLY Disposition Clinical Impression: Dysfunctional uterine bleeding Disposition: HOME SELF-CARE Condition: Stable Instructions (If sedation given, give patient instructions): Dysmenorrhea (ED) Additional Instructions: Please return to the Emergency Department if symptoms worsen or any other concerns. Recommend following up with [facility] as discussed. Is patient prescribed a controlled substance at d/c from ED?: No Referrals: Kaylee Bond MD [Primary Care Provider] - 1-2 days Time of Disposition: 14:32
[2021-01-10 12:38] LABS: Appearance,Urine Clear (Clear); Bacteria,Urine Rare /hpf; Bilirubin,Urine Negative (Negative); Blood,Urine Large (Negative); Color,Urine Yellow; Glucose,Urine (UA) Negative (Negative); Ketones,Urine 1+ (Negative); Leukocyte Esterase,Urine Negative (Negative); Mucus,Urine Moderate /hpf; Nitrite,Urine Negative (Negative); PH, Urine 5.5 (5.0-8.0); Protein,Urine Trace (Negative); RBC,Urine 4 /hpf (0-5); Specific Gravity,Urine 1.023 (1.001-1.035); Squamous Epithelial Cell,Urine 1 /hpf (0-4); Urobilinogen,Urine <2.0 mg/dL (<2.0); WBC,Urine 2 /hpf (0-5)
[2021-01-10 12:40] LABS: ALT 23 U/L (4-34); AST 28 U/L (14-36); African American GFR (CKD) >90 (>60 ml/min/1.73 sqM); Albumin 4.3 g/dL (3.5-5.0); Alkaline Phosphatase 101 U/L (38-126); Anion Gap 5 mmol/L; Blood Urea Nitrogen 8 mg/dL (7-17); Calcium 9.5 mg/dL (8.4-10.2); Carbon Dioxide 30 mmol/L (22-30); Chloride 103 mmol/L (98-107); Glucose 180 mg/dL (74-99); Non-African American GFR(CKD) >90 (>60 ml/min/1.73 sqM); Potassium 3.7 mmol/L (3.5-5.1); Sodium 138 mmol/L (137-145); Total Bilirubin 0.9 mg/dL (0.2-1.3); Total Protein 7.3 g/dL (6.3-8.2)
[2021-01-10 12:52] LABS: Basophils % (A) 1 %; Eosinophils # (A) 0.1 k/uL (0-0.7); Eosinophils % (A) 1 %; HCT 41.6 % (34.0-46.0); HGB 14.5 gm/dL (11.4-16.0); Lymphocytes # (A) 1.5 k/uL (1.0-4.8); Lymphocytes % (A) 23 %; MCH 29.5 pg (25.0-35.0); MCV 84.5 fL (80.0-100.0); Mean Platelet Volume 6.7; Monocytes # (A) 0.3 k/uL (0-1.0); Monocytes % (A) 5 %; Neutrophils # (A) 4.5 k/uL (1.3-7.7); Neutrophils % (A) 69 %; Platelet Count 348 k/uL (150-450); RBC 4.92 m/uL (3.80-5.40); RDW 12.8 % (11.5-15.5); WBC 6.5 k/uL (3.8-10.6)
[2021-01-10 12:57] LABS: HCG,Quantitative Serum <2.4 mIU/mL
--- NOTE | 2021-01-10 14:17 | US ---
EXAMINATION TYPE: US transvaginal DATE OF EXAM: 01/10/2021 COMPARISON: 02/06/2020 CLINICAL HISTORY: vag bleeding with clots, left pelvic pain. Hx ablation with reversal. TECHNIQUE: Transvaginal (TV) Date of LMP: Unknown, EXAM MEASUREMENTS: Uterus: 10.0 x 5.2 x 4.2 cm Endometrial Stripe: not well visualized Right Ovary: 3.2 x 2.1 x 2.0 cm Left Ovary: 3.0 x 1.8 x 1.2 cm 1. Uterus: Anteverted heterogenous. Left lower hypoechoic area- 1.0 x 0.6 x 0.6 cm. Right KAROL hy poechoic focus = 1.4 x 1.1 x 1.1 cm 2. Endometrium: Not well visualized 3. Right Ovary: follicle seen 4. Left Ovary: wnl Spectral, color and waveform doppler imaging shows good arterial and venous flow within the ovaries ; there is no evidence for ovarian torsion. 5. Bilateral Adnexa: wnl 6. Posterior cul-de-sac: no free fluid Fluid seen in cervical canal, nabothian cysts IMPRESSION: Hypoechoic lesions in the uterus are nonspecific but most likely represent leiomyomata. Clinical foll ow-up is recommended.
[2021-01-11 00:37] LABS: Follicle Stimulating Hormone 9.3 mIU/mL; Luteinizing Hormone 2.7 mIU/mL
[2021-01-11 21:47] LABS: Anti-Mullerian Hormone 0.26 ng/mL
== END 2021-01-10 14:53 | disposition home or self-care (01) ==
LOC: EC 11:16
DX: N93.8 Other specified abnormal uterine and vaginal bleeding (principal); R10.2 Pelvic and perineal pain; I10 Essential (primary) hypertension; E78.5 Hyperlipidemia, unspecified; E11.9 Type 2 diabetes mellitus without complications; K21.9 Gastro-esophageal reflux disease without esophagitis; Z87.891 Personal history of nicotine dependence; Z88.1 Allergy status to other antibiotic agents; Z88.8 Allergy status to other drugs, medicaments and biological substances; Z88.6 Allergy status to analgesic agent; Z79.899 Other long term (current) drug therapy
CPT/HCPCS: 36415; 76830; 80053; 81001; 82150; 82397; 82672; 83001; 83002; 83690; 84144; 84403; 84443; 84702; 85025; 86900; 86901; 93975; 99284

== ENCOUNTER → 2021-01-21 | Outpatient (CLI) | payer MEDICARE, OTHER ==
--- NOTE | 2021-01-22 06:22 | MR ---
EXAMINATION TYPE: MR abdomen wo con DATE OF EXAM: 01/21/2021 COMPARISON: None HISTORY: Abnormal liver enzymes, pain, hx lap band, GB removed Multiplanar multiecho imaging of the abdomen with no contrast. Liver has fairly normal size and contour. Spleen is intact. The bile ducts are not dilated. I see no evidence of filling defect in the common bile duct. The pancreas appears normal. There is no evidence of pancreatic mass. There is no sign of adrenal mass. Kidneys have normal size and contour. There is no hydronephrosis. T here is no evidence of ascites. There is no sign of retroperitoneal adenopathy. Pancreatic duct appea rs normal. There is no evidence of pleural effusion or pericardial effusion. Gallbladder is absent. IMPRESSION: Negative MR scan of the abdomen. No dilated ducts. Normal pancreas.
== END | disposition home or self-care (01) ==
LOC: RADMRIMAIN 11:51
PROVIDERS: ATTEND Family Medicine
DX: R74.8 Abnormal levels of other serum enzymes (principal); Z98.84 Bariatric surgery status
CPT/HCPCS: 74181

== ENCOUNTER → 2021-07-04 | Outpatient (CLI) | payer MEDICARE, OTHER ==
--- NOTE | 2021-07-04 14:12 | MM ---
Reason for exam: screening (asymptomatic). Last mammogram was performed 1 year and 1 month ago. History: Patient history of other cancer. Benign excisional biopsy of the left breast, 2000. Physical Findings: A clinical breast exam by your physician is recommended on an annual basis and results should be correlated with mammographic findings. MG 3D Screening Mammo W/Cad Bilateral CC and MLO view(s) were taken. Prior study comparison: May 21, 2020, bilateral MG 3d screening mammo w/cad. May 20, 2019, bilateral MG 3d screening mammo w/cad. There are scattered fibroglandular densities. Finding: There are typically benign dystrophic, round calcifications in both breasts. Focal asymmetry 10mm middle posterior depth outer aspect. New finding and more defined since May 21, 2020 and May 20, 2019. ASSESSMENT: Incomplete: need additional imaging evaluation, BI-RAD 0 RECOMMENDATION: Special view mammogram of the right breast. If lesion persists on supplemental views, image directed ultrasound is recommended. [facility] will attempt to contact patient to return for supplemental views and ultrasound if indicated.
== END | disposition home or self-care (01) ==
LOC: RADMAMWWP 08:17
PROVIDERS: ATTEND Family Medicine
DX: Z12.31 Encounter for screening mammogram for malignant neoplasm of breast (principal)
CPT/HCPCS: 77063; 77067

== ENCOUNTER → 2021-07-10 | Outpatient (CLI) | payer MEDICARE, OTHER ==
--- NOTE | 2021-07-11 12:55 | MM ---
Reason for exam: additional evaluation requested from abnormal screening. Last mammogram was performed less than 1 month ago. History: Patient history of other cancer. Benign excisional biopsy of the left breast, 2000. Taking progesterone for 1 month. Physical Findings: Nurse did not find any significant physical abnormalities on exam. MG 3D Work Up W/Cad RT Spot compression CC, spot compression LM, LM, and MLO view(s) were taken of the right breast. Prior study comparison: July 04, 2021, bilateral MG 3d screening mammo w/cad. May 21, 2020, bilateral MG 3d screening mammo w/cad. Finding: There is a 11 mm indistinct oval mass located 9 -10cm from the nipple in the outer quadrant, posterior position of the right breast, does not go away completely on additional views. These results were verbally communicated with the patient and result sheet given to the patient on 07/10/21. ASSESSMENT: Incomplete: need additional imaging evaluation, BI-RAD 0 RECOMMENDATION: Ultrasound of the right breast.
--- NOTE | 2021-07-11 12:56 | USB ---
Reason for exam: additional evaluation requested from abnormal screening. History: Patient history of other cancer. Benign excisional biopsy of the left breast, 2000. Taking progesterone for 1 month. US Breast Workup Limited RT Right limited breast ultrasound including focal area of concern, retroareolar and axilla demonstrates no cystic or solid lesion seen. Right breast scanned 8-11 o'clock. These results were verbally communicated with the patient and result sheet given to the patient on 07/10/21. ASSESSMENT: Probably benign, BI-RAD 3 RECOMMENDATION: Follow-up diagnostic mammogram of the right breast in 6 months.
== END | disposition home or self-care (01) ==
LOC: RADMAMWWP 08:28
PROVIDERS: ATTEND Family Medicine
DX: R92.8 Other abnormal and inconclusive findings on diagnostic imaging of breast (principal)
CPT/HCPCS: 77065; 76642; G0279; 77061

== ENCOUNTER → 2021-08-23 | Outpatient (CLI) | payer MEDICARE, OTHER ==
--- NOTE | 2021-08-23 11:45 | MR ---
EXAMINATION TYPE: MR angio head wo con DATE OF EXAM: 08/23/2021 COMPARISON: MR brain same date HISTORY: Vertigo, brain shaking and headaches x6 months TECHNIQUE: Time of flight images focusing on the [place] were performed without contrast. Th ree-dimensional reconstructions performed on an alternate workstation and reviewed FINDINGS: Anterior and posterior circulation are intact. There is no evident aneurysm, dissection, st enosis, embolus. Left vertebral artery is dominant. IMPRESSION: Normal [place] MRA
--- NOTE | 2021-08-23 12:34 | MR ---
EXAMINATION TYPE: MR brain and iac wo/w con DATE OF EXAM: 08/23/2021 COMPARISON: MR brain 04/13/2012 HISTORY: Vertigo, brain shaking and headaches x6 months TECHNIQUE: Multiplanar, multisequence images of the brain and brainstem is performed with small [id number] an d high resolution images through the internal auditory canals without and with IV contrast, utilizing 8.5ml mL intravenous Gadavist . FINDINGS: Diffusion weighted images demonstrate no evidence of a recent infarct or other diffusion ab normality. There is no extra-axial fluid collection or significant white matter signal abnormality. The ventricular system and cisternal spaces are normal in size and appearance. The brain volume is age appropriate. Her graft cerebellopontine angles are normal, there is no evident mass. Internal aud itory canals show no abnormal soft tissue. Brain signal is maintained. There are normal vascular flow voids. Midline structures demonstrate normal morphology. The craniocervical junction appears within normal limits. Post contrast images demonstrate no abnormal enhancement. The dural venous sinuses appear pa tent. The visualized sinuses are showing some mucosal thickening in the ethmoid air cells, and the gl obes are intact. IMPRESSION: Unremarkable brain and internal auditory canals. Mild sinus disease.
== END | disposition home or self-care (01) ==
LOC: RADMRIMAIN 09:08
PROVIDERS: ATTEND Family Medicine
DX: H81.4 Vertigo of central origin (principal)
CPT/HCPCS: 70544; 70553; A9585

== ENCOUNTER → 2021-08-28 | Outpatient (CLI) | payer MEDICARE, OTHER ==
--- NOTE | 2021-08-28 16:39 | FL ---
EXAMINATION TYPE: FL UGI air w small bowel DATE OF EXAM: 08/28/2021 COMPARISON: Similar study dated 11/22/2020 HISTORY: History of gastric sleeve surgery and Kemar-en-Y gastric bypass surgery 2018. Severe reflux TECHNIQUE: A single contrast UGI study is performed with small bowel follow through. A total of 2 m inutes and 12 seconds of fluoroscopic time was utilized during procedure and 70 images obtained. FINDINGS: Head Butler image of the abdomen shows cholecystectomy clips, nonspecific gaseous distention of the colon with right hemicolon fecal loading. Surgical sutures are seen in the upper abdomen as well as in the left side of the abdomen. The esophagus shows normal motility and emptying into the stomach. No evidence of hiatal hernia or s tricture noted. There is mild dilatation of the most inferior aspect of the esophagus with slightly p rominent mucosal pattern and questionable tiny ulcers. Please correlate with endoscopy results. No evidence of reflux at the time of the study. Rapid transition of the ingested contrast through the gastrojejunostomy with no evidence of delay or obstruction. The small bowel study shows normal transit to the colon in less than 90 minutes. There is normal muc osal fold pattern throughout the small bowel. There is no evidence of any stricture or sizable filli ng defect noted. The terminal ileum is unremarkable. IMPRESSION: Gastric bypass changes as described above. No obvious reflux at the time of the study. N o evidence of obstruction. Questionable distal esophageal prominent mucosa and possible ulcers, pleas e correlate with endoscopy results. No gross small bowel abnormality. Further CT enterography or MR e nterography can be considered if clinically required.
== END | disposition home or self-care (01) ==
LOC: RADFLMAIN 09:02
PROVIDERS: ATTEND Internal Medicine Gastroenterology
DX: K21.9 Gastro-esophageal reflux disease without esophagitis (principal)
CPT/HCPCS: 74240; 74248

== ENCOUNTER → 2021-10-17 | Outpatient (CLI) | payer MEDICARE, OTHER | END | disposition home or self-care (01) | LOC: RADMAMWWP 11:01 | PROVIDERS: ATTEND Family Medicine | DX: Z53.9 Procedure and treatment not carried out, unspecified reason (principal) ==

== ENCOUNTER 2021-11-05 04:30 | Emergency (ER) | payer MEDICARE, OTHER ==
[2021-11-05 04:36] VITALS: BP 125/88; PULSE 84; RESP 18; TEMP 97.6
[2021-11-05] MEDS ORDERED: AMOXICILLIN 500MG STARTER PACK 3 CAP BTL PO STA (05:21)
--- NOTE | 2021-11-05 05:21 | ED ---
ENT HPI - General Chief complaint: Dental/Oral Stated complaint: Dental Abscess Time Seen by Provider: 11/05/21 05:05 Source: patient, family Mode of arrival: ambulatory Limitations: no limitations - History of Present Illness Initial comments: This patient is a 46-year-old woman who presents to have evaluation of right maxillary tooth pain. She has had intermittent symptoms going back for number weeks but states the pain became constant a few days ago. Much worse tonight. Patient has not had any retro-orbital bulbar or orbital pain. No swelling noted. No difficulty with speech, breathing, swallowing. MD complaint: tooth pain -: days(s) Severity: severe Quality: aching Consistency: constant Improves with: none Worsens with: none Context- Dental: history of dental caries - Related Data Home Medications Medication Instructions Recorded Confirmed Mirtazapine [Remeron] 15 mg PO HS 06/23/14 01/10/21 Montelukast Sodium [Singulair] 10 mg PO HS 06/23/14 01/10/21 clonazePAM [KlonoPIN] 0.5 mg PO HS 06/23/14 01/10/21 Latanoprost Ophth [Xalatan 0.005%] 1 drops BOTH EYES HS 07/28/17 01/10/21 Budesonide [Pulmicort Flexhaler] 2 puff INHALATION RT-BID PRN 06/07/18 01/10/21 Gabapentin [Neurontin] 300 mg PO HS 11/17/18 01/10/21 Mirabegron [Myrbetriq] 50 mg PO HS 11/17/18 01/10/21 INSULIN LISPRO (humaLOG) [humaLOG] See Protocol SQ AC-TID PRN 01/17/19 01/10/21 Insulin Glargine [Lantus] 30 unit SQ DAILY PRN 01/17/19 01/10/21 Loratadine [Claritin] 10 mg PO HS 01/17/19 01/10/21 Omalizumab [Xolair] 300 mg SQ Q30D 05/04/19 01/10/21 Ascorbic Acid [Vitamin C] 250 mg PO BID 01/10/21 01/10/21 Betaine Anhydrous Trimehylgylcine 1 tab PO DAILY 01/10/21 01/10/21 Biotin 10,000 mcg PO BID 01/10/21 01/10/21 Black Cohosh 540 mg PO DAILY 01/10/21 01/10/21 Calcium Citrate/Vitamin D3 1 tab PO BID 01/10/21 01/10/21 [Calcium Cit 315-Vit D3 6.25 Mcg (250 Iu)] Chlorhexidine Gluconate [Peridex] 15 ml PO BID 01/10/21 01/10/21 Cholecalciferol [Vitamin D3 (25 25 mcg PO BID 01/10/21 01/10/21 Mcg = 1000 Iu)] Clindamycin Pledget 1% 1 applic TOPICAL BID 01/10/21 01/10/21 Cyanocobalamin [Vitamin B-12] 500 mcg PO BID 01/10/21 01/10/21 Cysteine HCl [l-Cysteine] 500 mg PO DAILY 01/10/21 01/10/21 Folate 800 mcg PO DAILY 01/10/21 01/10/21 Meclizine [Antivert] 25 mg PO TID PRN 01/10/21 01/10/21 Melatonin 5 mg PO HS 01/10/21 01/10/21 Midodrine HCl [ProAmantine] 2.5 mg PO TID 01/10/21 01/10/21 Mv-Min/Folic/Vit K/Lut/Ymfw211 1 tab PO DAILY 01/10/21 01/10/21 [Alive Women's 50 Plus Tablet] Nicomide 750mg 750 mg PO BID 01/10/21 01/10/21 Nystatin 100,000 Unit/ml Susp 5 ml PO QID 01/10/21 01/10/21 [Mycostatin Oral Susp] Omeprazole 20 mg PO DAILY 01/10/21 01/10/21 Pedi Multivit No.25/Folic Acid 300 mcg PO BID 01/10/21 01/10/21 [Flintstones Multivit Chew Tab] Thiamine [Vitamin B-1] 100 mg PO DAILY 01/10/21 01/10/21 Ubidecarenone [Co Q-10] 100 mg PO BID 01/10/21 01/10/21 Previous Rx's Medication Instructions Recorded Amoxicillin 875 mg PO Q12HR #20 tablet 11/05/21 Allergies Allergy/AdvReac Type Severity Reaction Status Date / Time cefazolin Allergy Unknown Verified 11/05/21 04:36 erythromycin base Allergy TOLD BY DR Verified 11/05/21 04:36 NOT TO TAKE -GASTRIC SLEEVE ibuprofen Allergy HISTORY OF Verified 11/05/21 04:36 GASTRIC SLEEVE-NOT TO TAKE PER " NSAIDS (Non-Steroidal Allergy Unknown Verified 11/05/21 04:36 Anti-Inflamma sumatriptan [From Imitrex] Allergy AGITATION,H Verified 11/05/21 04:36 ALLUCINATIO NS sumatriptan succinate Allergy Hallucinati Verified 11/05/21 04:36 [From Imitrex] ons topiramate [From Topamax] Allergy Hallucinati Verified 11/05/21 04:36 ons vancomycin Allergy RED MAN Verified 11/05/21 04:36 SYNDROME,SHORTNESS OF BREATH fludrocortisone AdvReac Unknown Verified 11/05/21 04:36 Penicillins AdvReac Anaphylaxis Verified 11/05/21 04:36 benzoperoxide Allergy Rash/Hives Uncoded 11/05/21 04:36 Review of Systems ROS Statement: Those systems with pertinent positive or pertinent negative responses have been documented in the HPI. ROS Other: All systems not noted in ROS Statement are negative. Constitutional: Denies: fever, chills Eyes: Denies: eye pain, vision change ENT: Denies: ear pain, throat pain Respiratory: Denies: cough, dyspnea Skin: Denies: rash Neurological: Denies: headache Past Medical History Past Medical History: Asthma, Diabetes Mellitus, Deep Vein Thrombosis (DVT), GERD/Reflux, Hyperlipidemia, Rheumatoid Arthritis (RA) Additional Past Medical History / Comment(s): MIGRAINE, FATTY LIVER,IRRITABLE BOWEL. BLOOD RIGHT LEG. DIABETIC AUTONOMIC NEUROPATHY. History of Any Multi-Drug Resistant Organisms: MRSA, Other MDRO Date of last positivie culture/infection: 2013 MDRO Source:: nasal Past Surgical History: Adenoidectomy, Bariatric Surgery, Breast Surgery, Section, Cholecystectomy, Hernia Repair, Tonsillectomy, Tubal Ligation Additional Past Surgical History / Comment(s): deviated septum,GASTRIC SLEEVE,D&C,LAP BAN, LAP BAND REMOVAL,UMBILICAL HERNIA,INCISIONAL HERNIA,RIGHT ANKLE SURGERY,CYST BIOPSY Past Anesthesia/Blood Transfusion Reactions: Postoperative Nausea & Vomiting (PONV) Past Psychological History: Anxiety, Bipolar, PTSD Smoking Status: Former smoker Past Alcohol Use History: Rare Past Drug Use History: None Reported - Past Family History Mother Family Medical History: No Reported History Father Family Medical History: Myocardial Infarction (LA) Additional Family Medical History / Comment(s): Father of a massive LA following laser eye surgery. Sister(s) Family Medical History: Deep Vein Thrombosis (DVT) General Exam Limitations: no limitations General appearance: alert, in no apparent distress Head exam: Present: atraumatic, normocephalic Eye exam: Present: normal appearance, PERRL, EOMI. Absent: scleral icterus, conjunctival injection ENT exam: Present: normal oropharynx, other (Tenderness tooth #5. Caries. No gingival erythema or swelling.) Neck exam: Present: normal inspection, full ROM. Absent: tenderness, lymphadenopathy Respiratory exam: Present: normal lung sounds bilaterally. Absent: respiratory distress, wheezes, rales, rhonchi, stridor Cardiovascular Exam: Present: regular rate, normal rhythm, normal heart sounds. Absent: systolic murmur, diastolic murmur, rubs, gallop Neurological exam: Present: alert Skin exam: Present: warm, dry, intact, normal color. Absent: rash Course Vital Signs 11/05/21 04:31 Temperature 97.6 F Pulse Rate 84 Respiratory 18 Rate Blood Pressure 125/88 O2 Sat by Pulse 99 Oximetry Disposition Clinical Impression: Pain, dental Disposition: HOME SELF-CARE Condition: Good Instructions (If sedation given, give patient instructions): Toothache (ED) Prescriptions: Amoxicillin 875 mg PO Q12HR #20 tablet Is patient prescribed a controlled substance at d/c from ED?: No Referrals: Eder Art [Primary Care Provider] - 1-2 days
== END 2021-11-05 05:51 | disposition home or self-care (01) ==
LOC: EC 04:30
DX: K02.9 Dental caries, unspecified (principal); E11.9 Type 2 diabetes mellitus without complications; J45.909 Unspecified asthma, uncomplicated; K21.9 Gastro-esophageal reflux disease without esophagitis; E78.5 Hyperlipidemia, unspecified; M06.9 Rheumatoid arthritis, unspecified; Z87.891 Personal history of nicotine dependence; Z88.0 Allergy status to penicillin; Z88.8 Allergy status to other drugs, medicaments and biological substances; Z88.1 Allergy status to other antibiotic agents; Z88.6 Allergy status to analgesic agent; Z79.899 Other long term (current) drug therapy
CPT/HCPCS: 99282

== ENCOUNTER → 2021-12-13 | Outpatient (CLI) | payer MEDICARE, OTHER ==
[2021-12-14 12:01] LABS: Follicle Stimulating Hormone 4.7 mIU/mL; Luteinizing Hormone 4.1 mIU/mL
== END | disposition home or self-care (01) ==
LOC: LABWHC1 14:11
PROVIDERS: ATTEND Family Medicine
DX: N97.9 Female infertility, unspecified (principal)
CPT/HCPCS: 36415; 82397; 83001; 83002; 84146; 84443

== ENCOUNTER → 2021-12-28 | Outpatient (CLI) | payer MEDICARE, OTHER ==
[2021-12-28 14:42] LABS: C-Peptide 1.27 ng/mL (0.81-3.85)
== END | disposition home or self-care (01) ==
LOC: LABWHC1 08:17
PROVIDERS: ATTEND Internal Medicine Endocrinology, Diabetes & Metabolism
DX: E11.65 Type 2 diabetes mellitus with hyperglycemia (principal)
CPT/HCPCS: 36415; 82947; 84681

== ENCOUNTER → 2022-01-08 | Outpatient (CLI) | payer MEDICARE, OTHER ==
--- NOTE | 2022-01-08 11:43 | MM ---
Reason for Exam: Follow-up at short interval from prior study. Last screening mammogram was performed 6 month(s) ago. Indicated Problems: Pain of the right side (Global) for 6 Month(s) : rt lateral breast pain off and on when pt is ovulating and or on cycle. Patient History: Menarche at age 11. First Full-Term at age 24. Currently using Progesterone, for 1 month. 2000, Benign Excisional Biopsy on the left side. Risk Values: Tami 5 year model risk: 1.3%. NCI Lifetime model risk: 12.1%. Prior Study Comparison: 05/21/2020 Bilateral Screening Mammogram, [facility]. 07/04/2021 Bilateral Screening Mammogram, [facility]. 07/10/2021 Right Diagnostic Mammogram, [facility]. Tissue Density: Right: There are scattered fibroglandular densities. Findings: Analyzed By CAD. There are regional benign round calcifications in the right breast redemonstrated. Asymmetrically prominent tissue within the posterior outer right breast is unchanged from several prior studies. No suspicious new mass or distortion in the right breast. Overall Assessment: Benign, BI-RAD 2 Management: Screening Mammogram of both breasts in 6 months. Back on schedule. Manage patient symptoms of on and off pain right breast outer aspect clinically. Results were given to the patient verbally at the time of exam. Electronically signed and approved by: Joseph Simon M.D.
== END | disposition home or self-care (01) ==
LOC: RADMAMWWP 11:06
PROVIDERS: ATTEND Family Medicine
DX: R92.8 Other abnormal and inconclusive findings on diagnostic imaging of breast (principal)
CPT/HCPCS: 77065; G0279; 77061

== ENCOUNTER → 2022-06-24 | Outpatient (CLI) | payer MEDICARE, OTHER ==
[2022-06-24 17:59] LABS: Basophils # (A) 0.07 X 10*3/uL (0.00-0.10); Basophils % (A) 1.2 %; Eosinophils # (A) 0.09 X 10*3/uL (0.04-0.35); Eosinophils % (A) 1.6 %; HCT 37.2 % (37.2-46.3); HGB 13.3 g/dL (12.0-15.0); Immature Grans, Automated 0.3 %; Lymphocytes # (A) 1.63 X 10*3/uL (0.90-5.00); Lymphocytes % (A) 28.4 %; MCH 29.4 pg (27.0-32.0); MCHC 35.8 g/dL (32.0-37.0); MCV 82.1 fL (80.0-97.0); Mean Platelet Volume 9.3 fL (9.5-12.2); Monocytes # (A) 0.37 X 10*3/uL (0.20-1.00); Monocytes % (A) 6.4 %; NRBC Per 100 WBC 0 /100 WBCS (0.0-0.0); Neutrophils # (A) 3.56 X 10*3/uL (1.80-7.70); Neutrophils % (A) 62.1 %; Platelet Count 323 X 10*3/uL (140-440); RBC 4.53 X 10*6/uL (4.10-5.20); WBC 5.74 X 10*3/uL (4.50-10.00)
[2022-06-24 18:34] LABS: % Iron Saturation 36.12 (12.00-45.00); Bilirubin, Conjugated 0.23 mg/dL (0.20-0.40); Bilirubin,Unconjugated 0.77 mg/dL (0.20-1.00); Iron 135 ug/dL (50-170); Total Iron Binding Capacity 374 ug/dL (228-460)
[2022-06-24 18:35] LABS: ALT 19 U/L (8-44); AST 14 U/L (13-35); African American GFR (CKD) 122.3 (60.0-200.0); Albumin 4.2 g/dL (3.8-4.9); Albumin/Globulin Ratio 1.83 (1.60-3.17); Alkaline Phosphatase 103 U/L (41-126); BUN/Creat Ratio 16.56 Ratio (12.00-20.00); Blood Urea Nitrogen 10.6 mg/dL (9.0-27.0); Calcium 8.9 mg/dL (8.7-10.3); Chloride 104 mmol/L (96-109); Globulin 2.3 g/dL (1.6-3.3); Glucose 139 mg/dL (70-110); Magnesium 1.9 mg/dL (1.5-2.4); Non-African American GFR(CKD) 105.5 (60.0-200.0); Sodium 138 mmol/L (135-145); Total Protein 6.5 g/dL (6.2-8.2)
[2022-06-24 19:19] LABS: Chol/HDL Ratio 3.36 Ratio; LDL Cholesterol,Calculated 91.1 mg/dL (0.0-131.0); Lipase 40 U/L (14-63)
[2022-06-25 11:00] LABS: Amorphous Sediment,Urine Occasional /hpf; Appearance,Urine Turbid (Clear); Bacteria,Urine Few /hpf; Bilirubin,Urine Negative (Negative); Blood,Urine Negative (Negative); Color,Urine Yellow; Glucose,Urine (UA) Trace (Negative); Ketones,Urine Negative (Negative); Leukocyte Esterase,Urine Small (Negative); Mucus,Urine Many /hpf; Nitrite,Urine Negative (Negative); PH, Urine 5.5 (5.0-8.0); Protein,Urine 1+ (Negative); RBC,Urine 8 /hpf (0-5); Specific Gravity,Urine 1.033 (1.001-1.035); Squamous Epithelial Cell,Urine 2 /hpf (0-4); Urobilinogen,Urine <2.0 mg/dL (<2.0); WBC,Urine 9 /hpf (0-5)
== END | disposition home or self-care (01) ==
LOC: LABWHC1 12:05
PROVIDERS: ATTEND Internal Medicine
DX: E11.9 Type 2 diabetes mellitus without complications (principal); R10.9 Unspecified abdominal pain; Z90.3 Acquired absence of stomach [part of]
CPT/HCPCS: 36415; 80053; 80061; 81001; 81025; 82140; 82248; 82306; 82607; 82728; 82746; 83540; 83550; 83690; 83735; 84443; 85025; 87086

== ENCOUNTER → 2022-06-30 | Outpatient (CLI) | payer MEDICARE, OTHER ==
[2022-06-30 14:54] LABS: ALT 19 U/L (8-44); AST 18 U/L (13-35); African American GFR (CKD) 121.3 (60.0-200.0); Albumin/Globulin Ratio 1.97 (1.60-3.17); Alkaline Phosphatase 97 U/L (41-126); BUN/Creat Ratio 17.68 Ratio (12.00-20.00); Blood Urea Nitrogen 11.6 mg/dL (9.0-27.0); Calcium 8.9 mg/dL (8.7-10.3); Chloride 105 mmol/L (96-109); Chol/HDL Ratio 3.84 Ratio; Globulin 2.1 g/dL (1.6-3.3); Glucose 167 mg/dL (70-110); LDL Cholesterol,Calculated 110.9 mg/dL (0.0-131.0); Non-African American GFR(CKD) 104.7 (60.0-200.0); Potassium 3.8 mmol/L (3.5-5.5); Sodium 139 mmol/L (135-145); Total Protein 6.1 g/dL (6.2-8.2); VLDL Calculation 15.58 mg/dL (5.00-40.00)
[2022-06-30 19:29] LABS: Microalbumin Creatinine Ratio <30 mg/g Creat (0-30)
== END | disposition home or self-care (01) ==
LOC: LABWHC1 10:25
PROVIDERS: ATTEND Internal Medicine Endocrinology, Diabetes & Metabolism
DX: E11.65 Type 2 diabetes mellitus with hyperglycemia (principal)
CPT/HCPCS: 36415; 80053; 80061; 82043; 82570; 83036; 84443

== ENCOUNTER → 2022-07-02 | Outpatient (CLI) | payer MEDICARE, OTHER ==
--- NOTE | 2022-07-02 09:30 | MM ---
Reason for Exam: Follow-up at short interval from prior study. Last screening mammogram was performed 12 month(s) ago. Patient History: Menarche at age 11. First Full-Term at age 24. Currently using Progesterone, for 1 month. 2000, Benign Excisional Biopsy on the left side. Last menstrual period: 07/01/2022 Risk Values: Tami 5 year model risk: 1.3%. NCI Lifetime model risk: 12.1%. Prior Study Comparison: 04/20/2006 Bilateral Screening Mammogram, Unknown. 07/06/2007 Bilateral Screening Mammogram, Unknown. 01/28/2012 Bilateral Screening Mammogram, [facility]. 01/28/2013 Bilateral Screening Mammogram, [facility]. 02/06/2014 Bilateral Screening Mammogram, [facility]. 02/07/2015 Bilateral Screening Mammogram, [facility]. 02/11/2016 Bilateral Screening Mammogram, [facility]. 02/06/2017 Bilateral Screening Mammogram, [facility]. 02/16/2018 Bilateral Screening Mammogram, [facility]. 05/20/2019 Bilateral Screening Mammogram, [facility]. 05/21/2020 Bilateral Screening Mammogram, [facility]. 07/04/2021 Bilateral Screening Mammogram, [facility]. 07/10/2021 Right Diagnostic Mammogram, [facility]. 07/10/2021 Right Diagnostic Ultrasound, [facility]. 01/08/2022 Right MG 3D diag mammo w/cad RT, [facility]. Tissue Density: The breast tissue is heterogeneously dense. This may lower the sensitivity of mammography. Findings: Analyzed By CAD. Pattern appears symmetrical and stable. Benign calcifications are present bilaterally. Within the subcutaneous tissues there is an area of subtle increased density best visualized in the cranial caudal projection. This is 10 cm from the nipple. On tomographic images is somewhat lobular but similar to comparison. Additional evaluation with ultrasound is recommended in 8:00 position. Overall Assessment: Incomplete: need additional imaging evaluation, BI-RAD 0 Management: Diagnostic Breast Ultrasound of the right breast. A clinical breast exam by your physician is recommended on an annual basis and results should be correlated with mammographic findings. This exam should not preclude additional follow-up of suspicious palpable abnormalities. Results were given to the patient verbally at the time of exam. Electronically signed and approved by: Pavel Montalvo D.O. Radiologis
--- NOTE | 2022-07-02 09:58 | USB ---
Reason for Exam: Additional evaluation requested from abnormal screening. Patient History: Menarche at age 11. First Full-Term at age 24. Currently using Progesterone, for 1 month. 2000, Benign Excisional Biopsy on the left side. Risk Values: Tami 5 year model risk: 1.3%. NCI Lifetime model risk: 12.1%. Technique: Method: Targeted. Prior Study Comparison: 07/04/2021 Bilateral Screening Mammogram, [facility]. 07/10/2021 Right Diagnostic Mammogram, [facility]. 01/08/2022 Right MG 3D diag mammo w/cad RT, [facility]. Findings: The lower outer quadrant of the right breast, the axilla of the right breast and the retroareolar of the right breast were scanned. No solid or cystic masses are identified. No suspicious abnormality to correlate with mammographic finding. Overall Assessment: Probably benign, BI-RAD 3 Management: Diagnostic Mammogram of the right breast in 6 months. Diagnostic Breast MRI of both breasts. A clinical breast exam by your physician is recommended on an annual basis and results should be correlated with mammographic findings. This exam should not preclude additional follow-up of suspicious palpable abnormalities. Results were given to the patient verbally at the time of exam. Electronically signed and approved by: Pavel Montalvo D.O. Radiologis
--- NOTE | 2022-07-02 14:08 | US ---
EXAMINATION TYPE: US abdomen complete DATE OF EXAM: 07/02/2022 COMPARISON: NONE CLINICAL HISTORY: R10.9 Abdominal cramping. Abdominal cramping. cholecystectomy TECHNIQUE: Multiple sonographic images of the abdomen are obtained. FINDINGS: EXAM MEASUREMENTS: Liver Length: 17.4 cm Gallbladder Wall: Surgically absent CBD: 0.6 cm Spleen: 12.7 cm Right Kidney: 12.4 x 4.9 x 4.8 cm Left Kidney: 11.3 x 5.1 x 6.0 cm Pancreas: Tail obscured by overlying bowel gas Liver: wnl Gallbladder: Surgically absent Evidence for sonographic Sung's sign: no CBD: wnl Spleen: appears wnl Right Kidney: Simple appearing cystic area medially = 1.5 x 1.5 x 1.2cm Left Kidney: no evidence of hydronephrosis Upper IVC: wnl Abd Aorta: wnl IMPRESSION: 1. Hepatomegaly 2. Right renal cyst
== END | disposition home or self-care (01) ==
LOC: RADMAMWWP 08:52
PROVIDERS: ATTEND Internal Medicine
DX: R92.8 Other abnormal and inconclusive findings on diagnostic imaging of breast (principal); R16.0 Hepatomegaly, not elsewhere classified; N28.1 Cyst of kidney, acquired
CPT/HCPCS: 77066; 76700; 76642; G0279; 77062

== ENCOUNTER → 2022-07-09 | Outpatient (CLI) | payer MEDICARE, OTHER ==
--- NOTE | 2022-07-10 08:10 | BMR ---
EXAMINATION TYPE: MR breast BILAT wo/w con DATE OF EXAM: 07/09/2022 COMPARISON: Bilateral screening mammogram July 02, 2022 BI-RADS 0. Diagnostic Limited right breast ultrasound July 02, 2022 BI-RADS 3. HISTORY: Right breast pain, abnormal mamm. History of benign excisional biopsy left breast 2000. TECHNIQUE: A series of fat and water weighted images in the long and short axis views of both breasts are obtained in conjunction with dynamic contrast MRI with subtraction technique. The patient was i njected with 8 mL intravenous Gadavist gadolinium contrast. Three-dimensional and additional postpr ocessing imaging is created on independent workstation and reviewed during official interpretation of this study. FINDINGS: Scattered fibroglandular tissue is redemonstrated bilaterally. There are benign-appearing b ilateral axillary lymph nodes are identified. T2 and STIR weighted images show no suspicious focal fl uid collections or cystic change in either breast. Dynamic postcontrast imaging shows mild to minimal symmetric background enhancement. There is no abnormal skin thickening identified bilaterally. Postcontrast images show no pathologic e nhancement or enhancing masses in either breast. Area of concern on recent mammograms. To reflect asy mmetric prominent tissue within the posterior depth outer slightly inner aspect right breast seen bes t series 401 image 88 measuring approximately 1.0 x 0.4 cm, no suspicious enhancement at this level n oted. The chest wall appears intact. IMPRESSION: No MRI evidence for invasive malignancy in either breast. BI-RADS 1 negative study Recommendation: Patient for bilateral breast mammogram June 2023 to be back on annual schedule.
== END | disposition home or self-care (01) ==
LOC: RADMRIMAIN 09:05
PROVIDERS: ATTEND Internal Medicine
DX: R92.8 Other abnormal and inconclusive findings on diagnostic imaging of breast (principal)
CPT/HCPCS: C8908; A9585; 77049

== ENCOUNTER → 2022-09-29 | Outpatient (CLI) | payer MEDICARE, OTHER ==
[2022-09-29 15:58] LABS: ALT 17 U/L (8-44); AST 14 U/L (13-35); Albumin/Globulin Ratio 1.75 (1.60-3.17); Alkaline Phosphatase 81 U/L (41-126); BUN/Creat Ratio 18.07 Ratio (12.00-20.00); Blood Urea Nitrogen 13.5 mg/dL (9.0-27.0); Calcium 9.4 mg/dL (8.7-10.3); Carbon Dioxide 28.5 mmol/L (20.0-27.5); Chloride 104 mmol/L (96-109); Chol/HDL Ratio 3.15 Ratio; Globulin 2.3 g/dL (1.6-3.3); Glucose 121 mg/dL (70-110); Non-African American GFR(CKD) 94.1 (60.0-200.0); Potassium 4.2 mmol/L (3.5-5.5); Sodium 141 mmol/L (135-145); Total Protein 6.4 g/dL (6.2-8.2)
== END | disposition home or self-care (01) ==
LOC: LABWHC1 09:33
PROVIDERS: ATTEND Internal Medicine Endocrinology, Diabetes & Metabolism
DX: E11.65 Type 2 diabetes mellitus with hyperglycemia (principal)
CPT/HCPCS: 36415; 80053; 80061; 82043; 82570; 83036; 84443

== ENCOUNTER → 2023-01-01 | Outpatient (CLI) | payer MEDICARE, OTHER ==
--- NOTE | 2023-01-01 08:12 | MM ---
Reason for Exam: Follow-up at short interval from prior study. Last screening mammogram was performed 6 month(s) ago. Patient History: Menarche at age 11. First Full-Term at age 24. Currently using Progesterone, for 1 month. 2000, Benign Excisional Biopsy on the left side. Last menstrual period: 12/19/2022 Risk Values: Tami 5 year model risk: 1.3%. NCI Lifetime model risk: 11.8%. Prior Study Comparison: 07/10/2021 Right Diagnostic Mammogram, [facility]. 01/08/2022 Right MG 3D diag mammo w/cad RT, [facility]. 07/02/2022 Bilateral MG 3D diag mammo w/cad ISAAC, [facility]. Tissue Density: Right: The breast tissue is heterogeneously dense. This may lower the sensitivity of mammography. Findings: Analyzed By CAD. No new suspicious masses in the right breast. Benign-appearing calcifications are redemonstrated. Stable asymmetry within the outer aspect of the right breast only on the cc view a posterior depth. This is stable dating back to 2019 and considered benign. Overall Assessment: Benign, BI-RAD 2 Management: Screening Mammogram of both breasts in 6 months. A clinical breast exam by your physician is recommended on an annual basis and results should be correlated with mammographic findings. This exam should not preclude additional follow-up of suspicious palpable abnormalities. Results were given to the patient verbally at the time of exam. Note on Tami scores and lifetime risk: 1. A Tami score greater than 3% is considered moderate risk. If this is the case, consider specialist referral to assess eligibility for a risk reducing agent. If overall lifetime risk for the development of breast cancer is 20% or higher, the patient may qualify for future screening with alternating mammogram and breast MRI. Electronically signed and approved by: Tato Dos Santos D.O.
== END | disposition home or self-care (01) ==
LOC: RADMAMWWP 07:49
PROVIDERS: ATTEND Internal Medicine
DX: R92.8 Other abnormal and inconclusive findings on diagnostic imaging of breast (principal)
CPT/HCPCS: 77065; G0279; 77061

== ENCOUNTER → 2023-01-01 | Outpatient (CLI) | payer MEDICARE, OTHER | END | disposition home or self-care (01) | LOC: LABPRL 08:25 | PROVIDERS: ATTEND Internal Medicine | DX: R10.13 Epigastric pain (principal) | CPT/HCPCS: 87338 ==

== ENCOUNTER 2023-01-16 07:15 | Day surgery (SDC) | payer MEDICARE, OTHER ==
[2023-01-14 11:36] VITALS: BMI 22.8
[~2023-01-16 07:15] MED LIST changes: +LIDOCAINE 1% (10MG/ML) FOR IV START INTRADERMA PRN; -LIDOCAINE 1% 20 ML VIAL (10MG/ML) FOR IV START INTRADERMA PRN; -SODIUM CHLORIDE 0.9% 1,000 ML IV SCH
[2023-01-16 07:52] LABS: Glucose,Whole Blood 108 mg/dL (70-110)
[2023-01-16 07:53] VITALS: TEMP 97.2
[2023-01-16] MEDS ORDERED: LIDOCAINE 2% INJ 20 MG/ML (2 ML VIAL) ONE (08:25)
[2023-01-16] MEDS ORDERED: PROPOFOL 10 MG/ML 20 ML VIAL IV ONE (08:25)
--- NOTE | 2023-01-16 08:41 | P.PCN ---
Date of Procedure: 01/16/23 Procedure(s) Performed: Brief history: Patient is a pleasant 47-year-old white female scheduled for an elective upper endoscopy as well as colonoscopy as a part of evaluation of GERD progressive weight loss and screening for colon cancer. She has history of gastric bypass surgery in the past. Procedure performed: Esophagogastroduodenoscopy with biopsy Colonoscopy Preoperative diagnosis: GERD/progressive weight loss Screening for colon cancer Anesthesia: MAC Procedure: After informed consent was obtained from the patient was brought into the endoscopy unit and IV sedation was administered by anesthesia under continuous monitoring. Initially upper endoscopy was done. The Olympus GF 160 video endoscope was inserted inserted into the mouth and esophagus intubated without any difficulty and was gradually advanced into the stomach. There was evidence of gastric bypass surgery with Kemar-en-Y anastomosis. The afferent and efferent limbs appeared normal. Biopsies were done from the jejunum. The scope was withdrawn to the gastric pouch with air was a small polyp identified which was biopsied. The scope at this time was withdrawn to the esophagus.. The GE junction was located at 37 cm to the incisors. Small hiatal hernia noted. It appeared regular with no erythema erosions or ulcerations. Rest of the esophagus appeared normal. Patient tolerated the procedure well. At this time the patient continued to remain sedation. Initial digital rectal examination was normal. Olympus CF 160 video colonoscope was then inserted into the rectum and gradually advanced to the cecum without any difficulty. Careful examination was performed as the scope was gradually being withdrawn. The prep was excellent. The cecum, ascending colon, transverse colon, descending colon, sigmoid colon and rectum appeared normal. Retroflexion was performed in the rectum and no lesions were noted. Patient tolerated the procedure well. Impression: 1. Upper endoscopy revealed evidence of gastric pouch with Kemar-en-Y anastomosis there appeared normal. Small gastric polyps and a small sliding Hiatal hernia 2. Colonoscopy was within normal limits with no evidence of colorectal neoplasia Recommendations: Findings of this examination were discussed with the patient as well as a family. She was advised to follow with the biopsy results. Recommend repeat screening colonoscopy in 10 years..
[2023-01-16 09:02] VITALS: BP 110/72; PULSE 78; RESP 18
== END 2023-01-16 09:14 | disposition home or self-care (01) ==
LOC: ORWHC2ENDO 07:15
PROVIDERS: ATTEND Internal Medicine Gastroenterology
DX: Z12.11 Encounter for screening for malignant neoplasm of colon (principal); K31.7 Polyp of stomach and duodenum; K29.50 Unspecified chronic gastritis without bleeding; K21.9 Gastro-esophageal reflux disease without esophagitis; K57.30 Diverticulosis of large intestine without perforation or abscess without bleeding; K44.9 Diaphragmatic hernia without obstruction or gangrene; Z98.84 Bariatric surgery status
CPT/HCPCS: 81025; 88305; 43239; G0121; J2704; J2001; 45378

== ENCOUNTER → 2023-03-11 | Outpatient (CLI) | payer MEDICARE, OTHER ==
[2023-03-11 16:40] LABS: BUN/Creat Ratio 24.17 Ratio (12.00-20.00); Blood Urea Nitrogen 14.5 mg/dL (9.0-27.0); Chloride 104 mmol/L (96-109); Chol/HDL Ratio 3.17 Ratio; Glucose 107 mg/dL (70-110); LDL Cholesterol,Calculated 113.2 mg/dL (0.0-131.0); Potassium 4.1 mmol/L (3.5-5.5); Sodium 141 mmol/L (135-145); VLDL Calculation 10.14 mg/dL (5.00-40.00)
[2023-03-11 16:41] LABS: ALT 16 U/L (8-44); AST 18 U/L (13-35); Alkaline Phosphatase 81 U/L (41-126); Calcium 9.1 mg/dL (8.7-10.3); Carbon Dioxide 26.7 mmol/L (21.6-31.8); Total Bilirubin 0.6 mg/dL (0.3-1.2)
[2023-03-11 17:47] LABS: Microalbumin Creatinine Ratio <6 mg/g Cr (0-30)
== END | disposition home or self-care (01) ==
LOC: LABWHC1 09:03
PROVIDERS: ATTEND Internal Medicine Endocrinology, Diabetes & Metabolism
DX: E11.65 Type 2 diabetes mellitus with hyperglycemia (principal)
CPT/HCPCS: 36415; 80053; 80061; 82043; 82570; 83036; 84443

== ENCOUNTER → 2023-03-19 | Outpatient (CLI) | payer MEDICARE, OTHER ==
--- NOTE | 2023-03-19 09:29 | P.GSHP ---
History of Present Illness H&P Date: 03/19/23 Chief Complaint: Fibrocystic breast changes Maral is a 47-year-old white female seen in consultation for Dr. Kimball regarding breast evaluation. She underwent a bilateral mammogram on 1423. This noted the breast tissue was heterogeneously dense. It was considered BI RADS 0 and diagnostic ultrasound of the right breast was recommended. No lesions of concern were noted in the left breast. Breast ultrasound was performed on the same day and no lesions of concern were identified and this was considered BIRADS 3 repeat mammogram of the right breast in 6 months. The patient [place] [address]. This was a BIRADS 1 negative study. The patient underwent a repeat right breast mammogram on 76. Stable asymmetry in the outer aspect of the right breast seen only on the CC view was noted this was stable dating back to 2019 and considered benign. It was considered BIRADS 2 and screening mammogram of both breasts in 6 months was recommended. The patient does not complain of any new lumps masses or nodules of concern in either breast. The patient had a left breast biopsy for a plugged milk duct. She has not complained of any trauma or infection in her breast. She is not complaining of any nipple discharge or skin changes. Tami Risk 1.3% 5 years Caffeine:2 cups/day nicotine: stopped in 2019, used to smoke 1 PPD for 10 years chocolate: weekly BCP: stopped at 24 used for 8 years Family History: mother: of cancer not sure of the type maternal great aunt: bone and lung cancer maternal great uncle: lung and brain cancer Hormonal History: menarche: 11 A1, 2 . 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 cardiomyopathy occurred secondary to this couplets and cardiac arrhythmias rheumatoid arthritis Superficial venous thrombosis left thigh - Constitutional Constitutional: Denies chills, Denies fever - EENT Eyes: bilateral as per HPI Ears: bilateral: decreased hearing, tinnitus Ears, nose, mouth and throat: Reports headache, Reports sore throat - Breasts Breasts: bilateral: as per HPI - Cardiovascular Cardiovascular: Reports as per HPI - Respiratory Respiratory: Denies cough, Denies 7 - Gastrointestinal Gastrointestinal: Reports diarrhea - Genitourinary (Female) Genitourinary: Denies dysuria, Denies hematuria - Menstruation Menstruation: Reports cycle variable - Musculoskeletal Musculoskeletal: Reports myalgias - Integumentary Integumentary: Reports pruritus, Reports rash - Neurological Neurological: Reports numbness, Reports weakness - Psychiatric Psychiatric: Reports anxiety, Reports depression - Endocrine Endocrine: Reports fatigue, Reports weight change - Hematologic/Lymphatic Comment: none - Allergic/Immunologic Allergic/Immunologic: Reports as per HPI Past Medical History Past Medical History: Asthma, Diabetes Mellitus, Deep Vein Thrombosis (DVT), GERD/Reflux, Hyperlipidemia, Rheumatoid Arthritis (RA) Additional Past Medical History / Comment(s): MIGRAINE, FATTY LIVER,IRRITABLE BOWEL. BLOOD RIGHT LEG. DIABETIC AUTONOMIC NEUROPATHY. History of Any Multi-Drug Resistant Organisms: MRSA, Other MDRO Date of last positivie culture/infection: 2013 MDRO Source:: nasal Past Surgical History: Adenoidectomy, Bariatric Surgery, Breast Surgery, Cesa rean Section, Cholecystectomy, Hernia Repair, Tonsillectomy, Tubal Ligation Additional Past Surgical History / Comment(s): deviated septum,GASTRIC SLEEVE,D&C,LAP BAN, LAP BAND REMOVAL,UMBILICAL HERNIA,INCISIONAL HERNIA,RIGHT ANKLE SURGERY,CYST BIOPSY Past Anesthesia/Blood Transfusion Reactions: Postoperative Nausea & Vomiting (PONV) Past Psychological History: Anxiety, Bipolar, PTSD Additional Past Alcohol Use History / Comment(s): Pt started smoking om 1986 and quit in 1998. Past Drug Use History: None Reported Additional Drug Use History / Comment(s): STATES NONE IN PAST YEAR - Past Family History Mother Family Medical History: No Reported History Father Family Medical History: Myocardial Infarction ([place]) Additional Family Medical History / Comment(s): Father of a massive [place] following laser eye surgery. Sister(s) Family Medical History: Deep Vein Thrombosis (DVT) Medications and Allergies Home Medications Medication Instructions Recorded Confirmed Type Montelukast Sodium [Singulair] 10 mg PO HS 06/23/14 01/16/23 History Latanoprost Ophth [Xalatan 0.005%] 1 drops BOTH EYES HS 07/28/17 01/16/23 History INSULIN LISPRO (humaLOG) [humaLOG] See Protocol SQ AC-TID PRN MDD 0-7 01/17/19 01/16/23 History UNITS Insulin Glargine [Lantus] 32 unit SQ DAILY PRN MDD FOR 01/17/19 01/16/23 History CBG>200 Omalizumab [Xolair] 300 mg SQ Q30D 05/04/19 01/16/23 History Amitriptyline HCl [Elavil] 25 mg PO HS PRN 01/14/23 01/16/23 History Cyclobenzaprine [Flexeril] 10 mg PO TID PRN 01/14/23 01/16/23 History Dulaglutide [Trulicity] 1.5 mg SQ WE 01/14/23 01/16/23 History Fluticasone Propionate 110 Mcg 1 puff INHALATION RT-BID 01/14/23 01/16/23 History [Flovent 110 Mcg Inhaler] Lansoprazole 30 mg PO BID 01/14/23 01/16/23 History Lidocaine/Menthol 1 each TP DAILY PRN 01/14/23 01/16/23 History [Lidocaine-Menthol 4%-1% Patch] Prazosin [Minipress] 1 mg PO BID PRN 01/14/23 01/16/23 History Pregabalin [Lyrica] 75 mg PO BID 01/14/23 01/16/23 History busPIRone HCL [Buspirone HCl] 15 mg PO DAILY PRN 01/14/23 01/16/23 History Loratadine [Claritin] 10 mg PO 01/16/23 History Allergies Allergy/AdvReac Type Severity Reaction Status Date / Time cefazolin Allergy severe dry Verified 03/19/23 09:24 heaving erythromycin base Allergy TOLD BY DR Verified 03/19/23 09:24 NOT TO TAKE -GASTRIC SLEEVE ibuprofen Allergy HISTORY OF Verified 03/19/23 09:24 GASTRIC SLEEVE-NOT TO TAKE PER DR" NSAIDS (Non-Steroidal Allergy Unknown Verified 03/19/23 09:24 Anti-Inflamma sumatriptan [From Imitrex] Allergy AGITATION,H Verified 03/19/23 09:24 ALLUCINATIO NS sumatriptan succinate Allergy Hallucinati Verified 03/19/23 09:24 [From Imitrex] ons topiramate [From Topamax] Allergy Hallucinati Verified 03/19/23 09:24 ons vancomycin Allergy RED MAN Verified 03/19/23 09:24 SYNDROME,SHORTNESS OF BREATH fludrocortisone AdvReac Unknown Verified 03/19/23 09:24 Penicillins AdvReac Anaphylaxis Verified 03/19/23 09:24 benzoperoxide Allergy Rash/Hives Uncoded 03/19/23 09:24 Surgical - Exam - General moderate distress - Eyes normal ocular movement - Neck trachea midline - Respiratory normal respiratory effort, clear to auscultation - Cardiovascular Rhythm: regular Heart Sounds: normal: S1, S2 - Abdomen Abdomen: soft, non tender, no guarding, no rigid, no rebound - Integumentary normal turgor - Musculoskeletal normal gait - Psychiatric oriented to time, oriented to person, oriented to place, speech is normal, memory intact Breast Exam: BRA: 36C inspection: Bilateral grade 3 ptosis, right breast larger than left breast Palpation: Right breast: Multiple positional exam no dominant masses or nodules of concern Right axilla: No adenopathy of concern Left breast: Multiple positional exam no dominant masses or nodules of concern Left axilla: No adenopathy of concern Results Mammogram, ultrasound, and MRI personally reviewed Assessment and Plan Assessment: Impression: Asymmetry of the breast Fibrocystic breast changes Plan: Bilateral mammogram in 6 months with physician exam at that time Patient to follow up sooner any questions or concerns Cc: Dr. Kimball
[2023-03-19 09:30] VITALS: BP 106/73; PULSE 71; RESP 17; TEMP 98.3
== END ==
LOC: WWCWWP 08:56
PROVIDERS: ATTEND Surgery
DX: N60.11 Diffuse cystic mastopathy of right breast (principal); E11.40 Type 2 diabetes mellitus with diabetic neuropathy, unspecified; F31.9 Bipolar disorder, unspecified; M06.9 Rheumatoid arthritis, unspecified; E78.5 Hyperlipidemia, unspecified; F41.9 Anxiety disorder, unspecified; J45.909 Unspecified asthma, uncomplicated; K21.9 Gastro-esophageal reflux disease without esophagitis; K58.9 Irritable bowel syndrome, unspecified; K76.0 Fatty (change of) liver, not elsewhere classified; N64.89 Other specified disorders of breast; Z79.51 Long term (current) use of inhaled steroids; Z86.718 Personal history of other venous thrombosis and embolism; Z87.891 Personal history of nicotine dependence; Z88.0 Allergy status to penicillin; Z88.1 Allergy status to other antibiotic agents; Z88.6 Allergy status to analgesic agent; Z90.49 Acquired absence of other specified parts of digestive tract; Z88.8 Allergy status to other drugs, medicaments and biological substances; Z88.2 Allergy status to sulfonamides; Z79.4 Long term (current) use of insulin

== ENCOUNTER → 2023-07-13 | Outpatient (CLI) | payer MEDICARE, OTHER ==
--- NOTE | 2023-07-14 12:11 | MM ---
Reason for Exam: Screening (asymptomatic). Last screening mammogram was performed 12 month(s) ago. Patient History: Menarche at age 11. First Full-Term at age 24. Perimenopausal. Currently using Progesterone, for 1 month. 2000, Benign Excisional Biopsy on the left side. Last menstrual period: 07/07/2023 Risk Values: Tami 5 year model risk: 1.3%. NCI Lifetime model risk: 11.6%. Prior Study Comparison: 01/08/2022 Right MG 3D diag mammo w/cad RT, [facility]. 07/02/2022 Bilateral MG 3D diag mammo w/cad [facility], [facility]. 01/01/2023 Right MG 3D diag mammo w/cad RT, [facility]. Tissue Density: There are scattered fibroglandular densities. Findings: Analyzed By CAD. There is no suspicious group of microcalcifications or new suspicious mass. Benign-appearing calcifications bilaterally. Overall Assessment: Benign, BI-RAD 2 Management: Screening Mammogram of both breasts in [address] [facility] will attempt to contact patient to return for supplemental views and ultrasound if indicated. Patient should continue monthly self-breast exams. A clinical breast exam by your physician is recommended on an annual basis. This exam should not preclude additional follow-up of suspicious palpable abnormalities. Note on Tami scores and lifetime risk: 1. A Tami score greater than 3% is considered moderate risk. If this is the case, consider specialist referral to assess eligibility for a risk reducing agent. 2. If overall lifetime risk for the development of breast cancer is 20% or higher, the patient may qualify for future screening with alternating mammogram and breast MRI. Electronically signed and approved by: Rios Macdonald DO
== END | disposition home or self-care (01) ==
LOC: RADMAMWWP 08:01
PROVIDERS: ATTEND Surgery
DX: Z12.31 Encounter for screening mammogram for malignant neoplasm of breast (principal)
CPT/HCPCS: 77063; 77067

== ENCOUNTER → 2023-07-16 | Outpatient (CLI) | payer MEDICARE, OTHER ==
[2023-07-16 09:18] VITALS: BP 108/72; PULSE 75; RESP 18; TEMP 97.8
--- NOTE | 2023-07-16 09:29 | P.PN ---
Subjective Progress Note Date: 07/16/23 Principal diagnosis: fibrocystic breast disease Fibrocystic breast changes Maral is a 47-year-old white female seen in consultation for Dr. Kimball regarding breast evaluation. She underwent a bilateral mammogram on 142. This noted the breast tissue was heterogeneously dense. It was considered BIRADS 0 and diagnostic ultrasound of the right breast was recommended. No lesions of concern were noted in the left breast. Breast ultrasound was performed on the same day and no lesions of concern were identified and this was considered BIRADS 3 repeat mammogram of the right breast in 6 months. The patient [place] [address]. This was a BIRADS 1 negative study. The patient underwent a repeat right breast mammogram on 76. Stable asymmetry in the outer aspect of the right breast seen only on the CC view was noted this was stable dating back to 2018 and considered benign. It was considered BIRADS 2 and screening mammogram of both breasts in 6 months was recommended. The patient does not complain of any new lumps masses or nodules of concern in either breast. The patient had a left breast biopsy for a plugged milk duct. She has not complained of any trauma or infection in her breast. She is not complaining of any nipple discharge or skin changes. Tami Risk 1.3% 5 years 07-16-23 Bilateral mammogram 07-13-23 BIRAD 2 The patient is not complaining of any new lumps masses or nodules of concern in either breast. At this time she is not complaining of breast pain. Caffeine:2 cups/day nicotine: stopped in 2019, used to smoke 1 PPD for 10 years chocolate: weekly BCP: stopped at 24 used for 8 years Family History: mother: of cancer not sure of the type maternal great aunt: bone and lung cancer maternal great uncle: lung and brain cancer Hormonal History: menarche: 11 A1, 2 . 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 cardiomyopathy occurred secondary to this couplets and cardiac arrhythmias rheumatoid arthritis Superficial venous thrombosis left thigh Social History: Nicotine: Negative Alcohol: Occasional Drugs: vapes cannibus for back pain several times a week - Constitutional Constitutional: Denies chills, Denies fever - EENT Eyes: bilateral as per HPI Ears: bilateral: decreased hearing, tinnitus Ears, nose, mouth and throat: Reports headache, Reports sore throat - Breasts Breasts: bilateral: as per HPI - Cardiovascular Cardiovascular: Reports as per HPI - Respiratory Respiratory: Denies cough, Denies 7 - Gastrointestinal Gastrointestinal: Reports diarrhea - Genitourinary (Female) Genitourinary: Denies dysuria, Denies hematuria - Menstruation Menstruation: Reports cycle variable - Musculoskeletal Musculoskeletal: Reports myalgias - Integumentary Integumentary: Reports pruritus, Reports rash - Neurological Neurological: Reports numbness, Reports weakness - Psychiatric Psychiatric: Reports anxiety, Reports depression - Endocrine Endocrine: Reports fatigue, Reports weight change - Hematologic/Lymphatic Comment: none - Allergic/Immunologic Allergic/Immunologic: Reports as per HPI Past Medical History Past Medical History: Asthma, Diabetes Mellitus, Deep Vein Thrombosis (DVT), GERD/Reflux, Hyperlipidemia, Rheumatoid Arthritis (RA) Additional Past Medical History / Comment(s): MIGRAINE, FATTY LIVER,IRRITABLE BOWEL. BLOOD RIGHT LEG. DIABETIC AUTONOMIC NEUROPATHY. History of Any Multi-Drug Resistant Organisms: MRSA, Other MDRO Date of last positivie culture/infection: 2013 MDRO Source:: nasal Past Surgical History: Adenoidectomy, Bariatric Surgery, Breast Surgery, Section, Cholecystectomy, Hernia Repair, Tonsillectomy, Tubal Ligation Additional Past Surgical History / Comment(s): deviated septum,GASTRIC SLEEVE,D&C,LAP BAN, LAP BAND REMOVAL,UMBILICAL HERNIA,INCISIONAL HERNIA,RIGHT AN KLE SURGERY,CYST BIOPSY Past Anesthesia/Blood Transfusion Reactions: Postoperative Nausea & Vomiting (PONV) Past Psychological History: Anxiety, Bipolar, PTSD Additional Past Alcohol Use History / Comment(s): Pt started smoking om 1986 and quit in 1998. Past Drug Use History: None Reported Additional Drug Use History / Comment(s): STATES NONE IN PAST YEAR - Past Family History Mother Family Medical History: No Reported History Father Family Medical History: Myocardial Infarction ([place]) Additional Family Medical History / Comment(s): Father of a massive [place] following laser eye surgery. Sister(s) Family Medical History: Deep Vein Thrombosis (DVT) Medications and Allergies Home Medications Medication Instructions Recorded Confirmed Type Montelukast Sodium [Singulair] 10 mg PO HS 06/23/14 01/16/23 History Latanoprost Ophth [Xalatan 0.005%] 1 drops BOTH EYES HS 07/28/17 01/16/23 History INSULIN LISPRO (humaLOG) [humaLOG] See Protocol SQ AC-TID PRN MDD 0-7 01/17/19 01/16/23 History UNITS Insulin Glargine [Lantus] 32 unit SQ DAILY PRN MDD FOR 01/17/19 01/16/23 History CBG>200 Omalizumab [Xolair] 300 mg SQ Q30D 05/04/19 01/16/23 History Amitriptyline HCl [Elavil] 25 mg PO HS PRN 01/14/23 01/16/23 History Cyclobenzaprine [Flexeril] 10 mg PO TID PRN 01/14/23 01/16/23 History Dulaglutide [Trulicity] 1.5 mg SQ WE 01/14/23 01/16/23 History Fluticasone Propionate 110 Mcg 1 puff INHALATION RT-BID 01/14/23 01/16/23 History [Flovent 110 Mcg Inhaler] Lansoprazole 30 mg PO BID 01/14/23 01/16/23 History Lidocaine/Menthol 1 each TP DAILY PRN 01/14/23 01/16/23 History [Lidocaine-Menthol 4%-1% Patch] Prazosin [Minipress] 1 mg PO BID PRN 01/14/23 01/16/23 History Pregabalin [Lyrica] 75 mg PO BID 01/14/23 01/16/23 History busPIRone HCL [Buspirone HCl] 15 mg PO DAILY PRN 01/14/23 01/16/23 History Loratadine [Claritin] 10 mg PO 01/16/23 History Allergies Allergy/AdvReac Type Severity Reaction Status Date / Time cefazolin Allergy severe dry Verified 03/19/23 09:24 heaving erythromycin base Allergy TOLD BY DR Verified 03/19/23 09:24 NOT TO TAKE -GASTRIC SLEEVE ibuprofen Allergy HISTORY OF Verified 03/19/23 09:24 GASTRIC SLEEVE-NOT TO TAKE PER DR" NSAIDS (Non-Steroidal Allergy Unknown Verified 03/19/23 09:24 Anti-Inflamma sumatriptan [From Imitrex] Allergy AGITATION,H Verified 03/19/23 09:24 ALLUCINATIO NS sumatriptan succinate Allergy Hallucinati Verified 03/19/23 09:24 [From Imitrex] ons topiramate [From Topamax] Allergy Hallucinati Verified 03/19/23 09:24 ons vancomycin Allergy RED MAN Verified 03/19/23 09:24 SYNDROME,SHORTNESS OF BREATH fludrocortisone AdvReac Unknown Verified 03/19/23 09:24 Penicillins AdvReac Anaphylaxis Verified 03/19/23 09:24 benzoperoxide Allergy Rash/Hives Uncoded 03/19/23 09:24 Objective - Vital Signs Vital signs: Vital Signs Temp 97.8 F 07/16/23 09:07 Pulse 75 07/16/23 09:07 Resp 18 07/16/23 09:07 BP 108/72 07/16/23 09:07 Pulse Ox 99 07/16/23 09:07 FiO2 Intake & Output 07/15/23 07/16/23 07/16/23 18:59 06:59 18:59 Weight 68.039 kg - Constitutional General appearance: Present: cooperative - EENT Eyes: Present: EOMI ENT: Present: hearing grossly normal - Neck Neck: Present: normal ROM - Respiratory Respiratory: bilateral: CTA - Cardiovascular Rhythm: regular Heart sounds: normal: S1, S2 - Gastrointestinal General gastrointestinal: Present: soft - Integumentary Integumentary: Present: normal turgor - Musculoskeletal Musculoskeletal: Present: gait normal - Psychiatric Psychiatric: Present: appropriate affect, intact judgment & insight - Additional findings Additional findings: Breast Exam: BRA: 36C inspection: Bilateral grade 3 ptosis, right breast larger than left breast Palpation: Right breast: Multi positional exam no dominant masses or nodules of concern Right axilla: No adenopathy of concern Left breast: Multi positional exam no dominant masses or nodules of concern Left axilla: No adenopathy of concern Assessment and Plan Assessment: Impression: Asymmetry of the breast Fibrocystic breast changes Bilateral mammogram 1-15-24 BIRAD 2 Plan: Bilateral mammogram in 1 year with physician exam at that time Patient to follow up sooner any questions or concerns Cc: Dr. Kimball
== END ==
LOC: WWCWWP 08:58
PROVIDERS: ATTEND Surgery
DX: N60.11 Diffuse cystic mastopathy of right breast (principal); E11.40 Type 2 diabetes mellitus with diabetic neuropathy, unspecified; E78.5 Hyperlipidemia, unspecified; F31.9 Bipolar disorder, unspecified; F41.9 Anxiety disorder, unspecified; J45.909 Unspecified asthma, uncomplicated; K21.9 Gastro-esophageal reflux disease without esophagitis; K58.9 Irritable bowel syndrome, unspecified; K76.0 Fatty (change of) liver, not elsewhere classified; M06.9 Rheumatoid arthritis, unspecified; N64.89 Other specified disorders of breast; Z79.51 Long term (current) use of inhaled steroids; Z86.718 Personal history of other venous thrombosis and embolism; Z87.891 Personal history of nicotine dependence; Z88.0 Allergy status to penicillin; Z88.1 Allergy status to other antibiotic agents; Z88.6 Allergy status to analgesic agent; Z90.49 Acquired absence of other specified parts of digestive tract; Z88.5 Allergy status to narcotic agent; Z79.4 Long term (current) use of insulin; Z88.2 Allergy status to sulfonamides; Z88.3 Allergy status to other anti-infective agents; Z88.9 Allergy status to unspecified drugs, medicaments and biological substances

== ENCOUNTER 2023-07-26 04:05 | Emergency (ER) | payer MEDICARE, OTHER ==
--- NOTE | 2023-07-26 04:27 | ED ---
General Adult HPI - General Chief complaint: Back Pain/Injury Stated complaint: Flank pain Time Seen by Provider: 07/26/23 04:07 Source: patient, RN notes reviewed, old records reviewed Mode of arrival: ambulatory Limitations: no limitations - History of Present Illness Initial comments: 48-year-old female presenting with dysuria, urinary frequency and left flank discomfort. Patient denies injury. Denies fever. Denies abdominal pain. She states her urine has been foul-smelling and she is concerned of urinary and kidney infection. - Related Data Home Medications Medication Instructions Recorded Confirmed Montelukast Sodium [Singulair] 10 mg PO HS 06/23/14 07/16/23 Latanoprost Ophth [Xalatan 0.005%] 1 drops BOTH EYES HS 07/28/17 07/16/23 Insulin Glargine [Lantus] 32 unit SQ DAILY PRN MDD FOR 01/17/19 07/16/23 CBG>200 Omalizumab [Xolair] 300 mg SQ Q30D 05/04/19 07/16/23 Amitriptyline HCl [Elavil] 25 mg PO HS PRN 01/14/23 07/16/23 Cyclobenzaprine [Flexeril] 10 mg PO TID PRN 01/14/23 07/16/23 Dulaglutide [Trulicity] 1.5 mg SQ WE 01/14/23 07/16/23 Fluticasone Propionate 110 Mcg 1 puff INHALATION RT-BID 01/14/23 07/16/23 [Flovent 110 Mcg Inhaler] Lansoprazole 30 mg PO BID 01/14/23 07/16/23 Lidocaine/Menthol 1 each TP DAILY PRN 01/14/23 07/16/23 [Lidocaine-Menthol 4%-1% Patch] Prazosin [Minipress] 1 mg PO BID PRN 01/14/23 07/16/23 Pregabalin [Lyrica] 75 mg PO BID 01/14/23 07/16/23 busPIRone HCL [Buspirone HCl] 15 mg PO DAILY PRN 01/14/23 07/16/23 Loratadine [Claritin] 10 mg PO DAILY 01/16/23 07/16/23 Insulin Aspart [NovoLOG] 2 - 12 units SQ ACHS PRN 07/16/23 07/16/23 Previous Rx's Medication Instructions Recorded Cephalexin [Keflex] 500 mg PO TID 10 Days #30 cap 07/26/23 Allergies Allergy/AdvReac Type Severity Reaction Status Date / Time cefazolin Allergy severe dry Verified 07/26/23 04:11 heaving erythromycin base Allergy TOLD BY DR Verified 07/26/23 04:11 NOT TO TAKE -GASTRIC SLEEVE ibuprofen Allergy HISTORY OF Verified 07/26/23 04:11 GASTRIC SLEEVE-NOT TO TAKE PER DR" NSAIDS (Non-Steroidal Allergy Unknown Verified 07/26/23 04:11 Anti-Inflamma sumatriptan [From Imitrex] Allergy AGITATION,H Verified 07/26/23 04:11 ALLUCINATIO NS sumatriptan succinate Allergy Hallucinati Verified 07/26/23 04:11 [From Imitrex] ons topiramate [From Topamax] Allergy Hallucinati Verified 07/26/23 04:11 ons vancomycin Allergy RED MAN Verified 07/26/23 04:11 SYNDROME,SHORTNESS OF BREATH fludrocortisone AdvReac Unknown Verified 07/26/23 04:11 Penicillins AdvReac Anaphylaxis Verified 07/26/23 04:11 benzoperoxide Allergy Rash/Hives Uncoded 07/26/23 04:11 Review of Systems ROS Statement: Those systems with pertinent positive or pertinent negative responses have been documented in the HPI. ROS Other: All systems not noted in ROS Statement are negative. Past Medical History Past Medical History: Asthma, Diabetes Mellitus, Deep Vein Thrombosis (DVT), GERD/Reflux, Hyperlipidemia, Rheumatoid Arthritis (RA) Additional Past Medical History / Comment(s): MIGRAINE, FATTY LIVER,IRRITABLE BOWEL. BLOOD RIGHT LEG. DIABETIC AUTONOMIC NEUROPATHY. History of Any Multi-Drug Resistant Organisms: MRSA, Other MDRO Date of last positivie culture/infection: 2013 MDRO Source:: nasal Past Surgical History: Adenoidectomy, Bariatric Surgery, Breast Surgery, Section, Cholecystectomy, Hernia Repair, Tonsillectomy, Tubal Ligation Additional Past Surgical History / Comment(s): deviated septum,GASTRIC SLEEVE,D& C,LAP BAN, LAP BAND REMOVAL,UMBILICAL HERNIA,INCISIONAL HERNIA,RIGHT ANKLE SURGERY,CYST BIOPSY Past Anesthesia/Blood Transfusion Reactions: Postoperative Nausea & Vomiting (PO NV) Past Psychological History: Anxiety, Bipolar, PTSD Smoking Status: Former smoker Past Alcohol Use History: Rare Past Drug Use History: None Reported - Past Family History Mother Family Medical History: No Reported History Father Family Medical History: Myocardial Infarction ([place]) Additional Family Medical History / Comment(s): Father of a massive [place] following laser eye surgery. Sister(s) Family Medical History: Deep Vein Thrombosis (DVT) General Exam Limitations: no limitations General appearance: alert, in no apparent distress Head exam: Present: atraumatic, normocephalic Eye exam: Present: normal appearance, PERRL ENT exam: Present: normal exam Neck exam: Present: normal inspection. Absent: tenderness, meningismus Respiratory exam: Present: normal lung sounds bilaterally. Absent: respiratory distress, wheezes Cardiovascular Exam: Present: regular rate, normal rhythm GI/Abdominal exam: Present: soft. Absent: distended, tenderness, guarding, rebound Extremities exam: Present: normal inspection, normal capillary refill Back exam: Present: CVA tenderness (L) Neurological exam: Present: alert, oriented X3 Psychiatric exam: Present: normal affect, normal mood Skin exam: Present: warm, dry, intact. Absent: cyanosis, diaphoretic Course Vital Signs 07/26/23 07/26/23 04:09 05:40 Temperature 97.9 F Pulse Rate 70 70 Respiratory 18 18 Rate Blood Pressure 113/77 92/60 O2 Sat by Pulse 99 100 Oximetry Medical Decision Making - Medical Decision Making Was pt. sent in by a medical professional or institution (DYLON Aguilar, INTERMODAL OWNER OPERATOR TRUCK DRIVER, urgent care, hospital, or senior living...) When possible be specific @ -No Did you speak to anyone other than the patient for history (EMS, parent, family, police, friend...)? What history was obtained from this source @ -No Did you review nursing and triage notes (agree or disagree)? Why? @ -I reviewed and agree with nursing and triage notes Were old charts reviewed (outside hosp., previous admission, EMS record, old EKG, old radiological studies, urgent care reports/EKG's, senior living records)? Report findings @ -No old charts were reviewed Differential Diagnosis (chest pain, altered mental status, abdominal pain women, abdominal pain men, vaginal bleeding, weakness, fever, dyspnea, syncope, headache, dizziness, GI bleed, back pain, seizure, CVA, palpatations, mental health, musculoskeletal)? @ -[Differential Abdominal Pain Women: Appendicitis, Cholecystitis, diverticulosis, ischemic bowel, pancreatitis, hepatitis, UTI, gastroenteritis, AAA, incarcerated hernia, bowel obstruction, constipation, inflammatory bowel, hepatitis, peptic ulcer disease, splenic infarction, perforated viscus, vulvitis, ovarian torsion, PID, kidney stone, placenta abruption, this is not meant to be an all-inclusive list EKG interpreted by me (3pts min.). @ -As above X-rays interpreted by me (1pt min.). @ -None done CT interpreted by me (1pt min.). @ -None done U/S interpreted by me (1pt. min.). @ -None done What testing was considered but not performed or refused? (CT, X-rays, U/S, labs)? Why? @ -None What meds were considered but not given or refused? Why? @ -None Did you discuss the management of the patient with other professionals (professionals i.e. , PA, INTERMODAL OWNER OPERATOR TRUCK DRIVER, lab, RT, psych nurse, social service liaison, ekg monitor tech, teacher, loan review officer, case management director)? Give summary @ -No Was smoking cessation discussed for >3mins.? @ -No Was critical care preformed (if so, how long)? @ -No Were there social determinants of health that impacted care today? How? (Homelessness, low income, unemployed, alcoholism, drug addiction, transportation, low edu. Level, literacy, decrease access to med. care, intermediate, rehab)? @ -No Was there de-escalation of care discussed even if they declined (Discuss DNR or withdrawal of care, Hospice)? DNR status @ -No What co-morbidities impacted this encounter? (DM, HTN, Smoking, COPD, CAD, Cancer, CVA, ARF, Chemo, Hep., AIDS, mental health diagnosis, sleep apnea, morbid obesity)? @ -None Was patient admitted / discharged? Hospital course, mention meds given and route, prescriptions, significant lab abnormalities, going to OR and other pertinent info. @ -48-year-old female with foul-smelling urine, dysuria, flank discomfort. This been ongoing for the past several days. No fever. No vomiting. Pain is constant and patient does appear comfortable not requiring pain medication in the emergency department. She has a normal CBC, normal CMP. Urinalysis is suggestive of urinary tract infection. Urine culture obtained. Patient started on antibiotics. She is given return parameters and will follow-up with her primary care provider Undiagnosed new problem with uncertain prognosis? @ -No Drug Therapy requiring intensive monitoring for toxicity (Heparin, Nitro, In sulin, Cardizem)? @ -No Were any procedures done? @ -No Diagnosis/symptom? @ -[UTI Acute, or Chronic, or Acute on Chronic? @ -Acute Uncomplicated (without systemic symptoms) or Complicated (systemic symptoms)? @ -Default Side effects of treatment? @ -No Exacerbation, Progression, or Severe Exacerbation? @ -No Poses a threat to life or bodily function? How? (Chest pain, [place], [place], pneumonia, PE, COPD, DKA, ARF, appy, cholecystitis, CVA, Diverticulitis, Homicidal, Suicidal, threat to staff... and all critical care pts) @Yes, sepsis - Lab Data Result diagrams: 07/26/23 04:32 07/26/23 04:32 Lab Results 07/26/23 07/26/23 07/26/23 Range/Units 04:32 04:32 04:32 WBC 7.4 (3.8-10.6) k/uL RBC 4.76 (3.80-5.40) m/uL Hgb 14.6 (11.4-16.0) gm/dL Hct 41.3 (34.0-46.0) % MCV 86.8 (80.0-100.0) fL MCH 30.6 (25.0-35.0) pg MCHC 35.3 (31.0-37.0) g/dL RDW 12.2 (11.5-15.5) % Plt Count 292 (150-450) k/uL MPV 7.0 Neutrophils % 67 % Lymphocytes % 25 % Monocytes % 5 % Eosinophils % 1 % Basophils % 1 % Neutrophils # 4.9 (1.3-7.7) k/uL Lymphocytes # 1.9 (1.0-4.8) k/uL Monocytes # 0.4 (0-1.0) k/uL Eosinophils # 0.1 (0-0.7) k/uL Basophils # 0.1 (0-0.2) k/uL Sodium 140 (137-145) mmol/L Potassium 3.7 (3.5-5.1) mmol/L Chloride 107 (98-107) mmol/L Carbon Dioxide 27 (22-30) mmol/L Anion Gap 6 mmol/L BUN 17 (7-17) mg/dL Creatinine 0.54 (0.52-1.04) mg/dL Est GFR (CKD-EPI)AfAm >90 (>60 ml/min/1.73 sqM) Est GFR (CKD-EPI)NonAf >90 (>60 ml/min/1.73 sqM) Glucose 99 (74-99) mg/dL Calcium 8.8 (8.4-10.2) mg/dL Total Bilirubin 0.9 (0.2-1.3) mg/dL AST 28 (14-36) U/L ALT 28 (4-34) U/L Alkaline Phosphatase 68 (38-126) U/L Total Protein 6.9 (6.3-8.2) g/dL Albumin 4.0 (3.5-5.0) g/dL Urine Color Yellow Urine Appearance Cloudy H (Clear) Urine pH 5.5 (5.0-8.0) Ur Specific Bearden 1.027 (1.001-1.035) Urine Protein Trace H (Negative) Urine Glucose (UA) Negative (Negative) Urine Ketones Negative (Negative) Urine Blood Moderate H (Negative) Urine Nitrite Positive H (Negative) Urine Bilirubin Negative (Negative) Urine Urobilinogen <2.0 (<2.0) mg/dL Ur Leukocyte Esterase Small H (Negative) Urine RBC 66 H (0-5) /hpf Urine WBC 38 H (0-5) /hpf Ur Squamous Epith Cells 9 H (0-4) /hpf Urine Bacteria Many H (None) /hpf Urine Mucus Many H (None) /hpf Disposition Clinical Impression: Urinary tract infection Disposition: HOME SELF-CARE Condition: Fair Instructions (If sedation given, give patient instructions): Urinary Tract Infection in Women (ED) Prescriptions: Cephalexin [Keflex] 500 mg PO TID 10 Days #30 cap Is patient prescribed a controlled substance at d/c from ED?: No Referrals: Pasquale Kimball MD [Primary Care Provider] - 1-2 days Time of Disposition: 05:30
[2023-07-26 04:38] VITALS: PULSE 70; RESP 18; TEMP 97.9
[2023-07-26] MEDS: SODIUM CHLORIDE 0.9% 1,000 ML IV ONE (04:45)
[2023-07-26 04:49] LABS: ALT 28 U/L (4-34); AST 28 U/L (14-36); African American GFR (CKD) >90 (>60 ml/min/1.73 sqM); Alkaline Phosphatase 68 U/L (38-126); Anion Gap 6 mmol/L; Blood Urea Nitrogen 17 mg/dL (7-17); Calcium 8.8 mg/dL (8.4-10.2); Carbon Dioxide 27 mmol/L (22-30); Chloride 107 mmol/L (98-107); Glucose 99 mg/dL (74-99); Non-African American GFR(CKD) >90 (>60 ml/min/1.73 sqM); Potassium 3.7 mmol/L (3.5-5.1); Sodium 140 mmol/L (137-145); Total Bilirubin 0.9 mg/dL (0.2-1.3); Total Protein 6.9 g/dL (6.3-8.2)
[2023-07-26 05:14] LABS: Basophils # (A) 0.1 k/uL (0-0.2); Basophils % (A) 1 %; Eosinophils # (A) 0.1 k/uL (0-0.7); Eosinophils % (A) 1 %; HCT 41.3 % (34.0-46.0); HGB 14.6 gm/dL (11.4-16.0); Lymphocytes # (A) 1.9 k/uL (1.0-4.8); Lymphocytes % (A) 25 %; MCH 30.6 pg (25.0-35.0); MCHC 35.3 g/dL (31.0-37.0); MCV 86.8 fL (80.0-100.0); Monocytes # (A) 0.4 k/uL (0-1.0); Monocytes % (A) 5 %; Neutrophils # (A) 4.9 k/uL (1.3-7.7); Neutrophils % (A) 67 %; Platelet Count 292 k/uL (150-450); RBC 4.76 m/uL (3.80-5.40); RDW 12.2 % (11.5-15.5); WBC 7.4 k/uL (3.8-10.6)
[2023-07-26 05:26] LABS: Appearance,Urine Cloudy (Clear); Bacteria,Urine Many /hpf; Bilirubin,Urine Negative (Negative); Blood,Urine Moderate (Negative); Color,Urine Yellow; Glucose,Urine (UA) Negative (Negative); Ketones,Urine Negative (Negative); Leukocyte Esterase,Urine Small (Negative); Mucus,Urine Many /hpf; Nitrite,Urine Positive (Negative); PH, Urine 5.5 (5.0-8.0); Protein,Urine Trace (Negative); RBC,Urine 66 /hpf (0-5); Specific Gravity,Urine 1.027 (1.001-1.035); Squamous Epithelial Cell,Urine 9 /hpf (0-4); Urobilinogen,Urine <2.0 mg/dL (<2.0); WBC,Urine 38 /hpf (0-5)
[2023-07-26] MEDS: cefTRIAXone IN SWFI 1,000 MG/10 ML SYRINGE IVP STA (05:37)
[2023-07-26 06:00] VITALS: BP 92/60
== END 2023-07-26 06:24 | disposition home or self-care (01) ==
LOC: EC 04:05
DX: N39.0 Urinary tract infection, site not specified (principal); E11.43 Type 2 diabetes mellitus with diabetic autonomic (poly)neuropathy; J45.909 Unspecified asthma, uncomplicated; K21.9 Gastro-esophageal reflux disease without esophagitis; F31.9 Bipolar disorder, unspecified; F41.9 Anxiety disorder, unspecified; Z79.4 Long term (current) use of insulin; Z79.85 Long-term (current) use of injectable non-insulin antidiabetic drugs; Z79.51 Long term (current) use of inhaled steroids; Z79.899 Other long term (current) drug therapy; Z88.8 Allergy status to other drugs, medicaments and biological substances; Z88.1 Allergy status to other antibiotic agents; Z88.6 Allergy status to analgesic agent; Z88.0 Allergy status to penicillin; Z88.5 Allergy status to narcotic agent; Z86.718 Personal history of other venous thrombosis and embolism; Z87.891 Personal history of nicotine dependence; Z90.49 Acquired absence of other specified parts of digestive tract
CPT/HCPCS: 36415; 80053; 85025; 81001; 87086; 87077; 87186; 99283; 96374; J0696

== ENCOUNTER → 2023-10-10 | Outpatient (CLI) | payer MEDICARE, OTHER | END | disposition home or self-care (01) | LOC: LABWHC1 10:29 | PROVIDERS: ATTEND Internal Medicine | DX: R19.7 Diarrhea, unspecified (principal) ==

== ENCOUNTER → 2023-11-05 | Outpatient (CLI) | payer MEDICARE, OTHER ==
[2023-11-05 16:28] LABS: ALT 18 U/L (8-44); AST 18 U/L (13-35); Albumin 4.2 g/dL (3.8-4.9); Albumin/Globulin Ratio 1.62 Ratio (1.60-3.17); Alkaline Phosphatase 89 U/L (41-126); BUN/Creat Ratio 14.75 Ratio (12.00-20.00); Blood Urea Nitrogen 11.8 mg/dL (9.0-27.0); Calcium 9.2 mg/dL (8.7-10.3); Carbon Dioxide 27.5 mmol/L (21.6-31.8); Chloride 101 mmol/L (96-109); Chol/HDL Ratio 2.96 Ratio; Globulin 2.6 g/dL (1.6-3.3); Glucose 171 mg/dL (70-110); LDL Cholesterol,Calculated 110.1 mg/dL (0.0-131.0); Potassium 3.9 mmol/L (3.5-5.5); Sodium 139 mmol/L (135-145); Total Protein 6.8 g/dL (6.2-8.2); VLDL Calculation 15.08 mg/dL (5.00-40.00)
== END | disposition home or self-care (01) ==
LOC: LABWHC1 11:31
PROVIDERS: ATTEND Internal Medicine Endocrinology, Diabetes & Metabolism
DX: E11.65 Type 2 diabetes mellitus with hyperglycemia (principal)
CPT/HCPCS: 36415; 80053; 80061; 82043; 82570; 83036; 84443

== ENCOUNTER → 2023-12-14 | Outpatient (CLI) | payer MEDICARE, OTHER ==
--- NOTE | 2023-12-14 18:31 | XR ---
EXAMINATION TYPE: XR wrist complete LT DATE OF EXAM: 12/14/2023 5:18 PM CLINICAL INDICATION:Female, 48 years old with history of M25.532 PAIN IN LEFT WRIST; [facility] COMPARISON: None TECHNIQUE: XR wrist complete LT; examined in the Frontal, navicular, lateral, and oblique. FINDINGS: No acute osseous pathology, joint dislocation, or joint effusion. No evidence of any soft tissue swelling is seen. IMPRESSION: No acute osseous pathology.
== END | disposition home or self-care (01) ==
LOC: RADXRMAIN 17:02
PROVIDERS: ATTEND Family Medicine
DX: M25.532 Pain in left wrist (principal)

== ENCOUNTER 2024-01-23 13:03 | Emergency (ER) | payer MEDICARE, OTHER ==
[2024-01-23 13:09] VITALS: RESP 18; TEMP 98.1
[2024-01-23] MEDS: SODIUM CHLORIDE 0.9% 1,000 ML IV STA (14:09)
--- NOTE | 2024-01-23 14:34 | CT ---
EXAMINATION TYPE: CT abdomen pelvis wo con DATE OF EXAM: 01/23/2024 COMPARISON: 07/02/17 HISTORY: left flank pain CT DLP: 499.4 mGycm Examination of the solid and hollow viscera is limited given the lack of contrast. FINDINGS: LUNG BASES: No evidence for nodule. No evidence for infiltrate. LIVER/GB: The gallbladder is unremarkable. No space-occupying hepatic lesion. PANCREAS: No pancreatic mass identified. No inflammatory process seen. SPLEEN: No evidence for splenomegaly. No intrasplenic lesions seen. ADRENALS: No adrenal nodules identified. No evidence for thickening. KIDNEYS: No evidence for renal mass. 1 cm calculus left UPJ resulting in mild hydronephrosis. Nonobst ructing 2 mm calculi right kidney. No hydronephrosis. BOWEL: Appendix has a normal appearance. No evidence of bowel obstruction. No inflammatory process. P ostoperative changes seen about the stomach. Lymph nodes: No evidence for adenopathy greater than 1 cm. Abdominal aorta: Atheromatous changes seen. No evidence for aneurysm. Genital organs: No significant abnormality. Other: No significant abnormality. IMPRESSION: 1 cm calculus left UPJ resulting in mild hydronephrosis.
[2024-01-23 14:51] LABS: Appearance,Urine Cloudy (Clear); Bacteria,Urine Moderate /hpf; Bilirubin,Urine Negative (Negative); Blood,Urine Large (Negative); Budding Yeast,Urine Occasional /hpf; Color,Urine Light Red; Glucose,Urine (UA) Negative (Negative); Ketones,Urine Negative (Negative); Leukocyte Esterase,Urine Negative (Negative); Mucus,Urine Many /hpf; Nitrite,Urine Negative (Negative); PH, Urine 5.5 (5.0-8.0); Protein,Urine 1+ (Negative); RBC,Urine >182 /hpf (0-5); Specific Gravity,Urine 1.028 (1.001-1.035); Squamous Epithelial Cell,Urine 8 /hpf (0-4); Urobilinogen,Urine <2.0 mg/dL (<2.0); WBC,Urine 4 /hpf (0-5)
[2024-01-23 14:53] LABS: Basophils # (A) 0.1 k/uL (0-0.2); Basophils % (A) 1 %; Eosinophils # (A) 0.1 k/uL (0-0.7); Eosinophils % (A) 1 %; HCT 43.4 % (34.0-46.0); HGB 14.9 gm/dL (11.4-16.0); Lymphocytes # (A) 1.1 k/uL (1.0-4.8); Lymphocytes % (A) 14 %; MCHC 34.3 g/dL (31.0-37.0); MCV 87.3 fL (80.0-100.0); Mean Platelet Volume 6.8; Monocytes # (A) 0.4 k/uL (0-1.0); Monocytes % (A) 5 %; Neutrophils # (A) 6.6 k/uL (1.3-7.7); Neutrophils % (A) 79 %; Platelet Count 364 k/uL (150-450); RBC 4.97 m/uL (3.80-5.40); RDW 12.1 % (11.5-15.5); WBC 8.3 k/uL (3.8-10.6)
[2024-01-23 14:56] LABS: ALT 25 U/L (4-34); AST 27 U/L (14-36); African American GFR (CKD) >90 (>60 ml/min/1.73 sqM); Albumin 4.3 g/dL (3.5-5.0); Alkaline Phosphatase 72 U/L (38-126); Amylase 58 U/L (30-110); Anion Gap 8 mmol/L; Blood Urea Nitrogen 14 mg/dL (7-17); Calcium 9.7 mg/dL (8.4-10.2); Carbon Dioxide 26 mmol/L (22-30); Chloride 103 mmol/L (98-107); Glucose 202 mg/dL (74-99); Lipase 82 U/L (23-300); Non-African American GFR(CKD) >90 (>60 ml/min/1.73 sqM); Potassium 4.4 mmol/L (3.5-5.1); Sodium 137 mmol/L (137-145); Total Bilirubin 1.2 mg/dL (0.2-1.3); Total Protein 7.1 g/dL (6.3-8.2)
--- NOTE | 2024-01-23 15:08 | ED ---
General Adult HPI - General Chief complaint: Abdominal Pain Stated complaint: Abdominal Pain Time Seen by Provider: 01/23/24 13:18 Source: patient, RN notes reviewed Mode of arrival: ambulatory Limitations: no limitations - History of Present Illness Initial comments: 48-year-old female presents to the emergency department for evaluation of left flank pain. Patient states that this has been going on for around 5 days. She notes that over the past 2 days she has had blood in her urine. She states that she frequently gets kidney infections and thought that this was what was going on. This prompted her presentation to urgent care today. She was found to have blood in her urine at urgent care. She states that she was sent in by urgent care for potential kidney stone. She denies any history of kidney stones. Denies fever, chills. Admits to nausea without vomiting. - Related Data Home Medications Medication Instructions Recorded Confirmed Montelukast Sodium [Singulair] 10 mg PO HS 06/23/14 07/16/23 Latanoprost Ophth [Xalatan 0.005%] 1 drops BOTH EYES HS 07/28/17 07/16/23 Insulin Glargine [Lantus] 32 unit SQ DAILY PRN MDD FOR 01/17/19 07/16/23 CBG>200 Omalizumab [Xolair] 300 mg SQ Q30D 05/04/19 07/16/23 Amitriptyline HCl [Elavil] 25 mg PO HS PRN 01/14/23 07/16/23 Cyclobenzaprine [Flexeril] 10 mg PO TID PRN 01/14/23 07/16/23 Dulaglutide [Trulicity] 1.5 mg SQ WE 01/14/23 07/16/23 Fluticasone Propionate 110 Mcg 1 puff INHALATION RT-BID 01/14/23 07/16/23 [Flovent 110 Mcg Inhaler] Lansoprazole 30 mg PO BID 01/14/23 07/16/23 Lidocaine/Menthol 1 each TP DAILY PRN 01/14/23 07/16/23 [Lidocaine-Menthol 4%-1% Patch] Prazosin [Minipress] 1 mg PO BID PRN 01/14/23 07/16/23 Pregabalin [Lyrica] 75 mg PO BID 01/14/23 07/16/23 busPIRone HCL [Buspirone HCl] 15 mg PO DAILY PRN 01/14/23 07/16/23 Loratadine [Claritin] 10 mg PO DAILY 01/16/23 07/16/23 Insulin Aspart [NovoLOG] 2 - 12 units SQ ACHS PRN 07/16/23 07/16/23 Previous Rx's Medication Instructions Recorded Cephalexin [Keflex] 500 mg PO TID 10 Days #30 cap 07/26/23 HYDROcodone/APAP 10-325MG [Cannon 1 tab PO Q6HR PRN 3 Days #12 tab 01/23/24 10-325] Ondansetron Odt [Zofran Odt] 4 mg PO Q8HR PRN #15 tab 01/23/24 Tamsulosin [Flomax] 0.4 mg PO DAILY #7 cap 01/23/24 Allergies Allergy/AdvReac Type Severity Reaction Status Date / Time cefazolin Allergy severe dry Verified 01/23/24 13:09 heaving erythromycin base Allergy TOLD BY DR Verified 01/23/24 13:09 NOT TO TAKE -GASTRIC SLEEVE ibuprofen Allergy HISTORY OF Verified 01/23/24 13:09 GASTRIC SLEEVE-NOT TO TAKE PER " NSAIDS (Non-Steroidal Allergy Unknown Verified 01/23/24 13:09 Anti-Inflamma sumatriptan [From Imitrex] Allergy AGITATION,H Verified 01/23/24 13:09 ALLUCINATIO NS sumatriptan succinate Allergy Hallucinati Verified 01/23/24 13:09 [From Imitrex] ons topiramate [From Topamax] Allergy Hallucinati Verified 01/23/24 13:09 ons vancomycin Allergy RED MAN Verified 01/23/24 13:09 SYNDROME,SHORTNESS OF BREATH fludrocortisone AdvReac Unknown Verified 01/23/24 13:09 Penicillins AdvReac Anaphylaxis Verified 01/23/24 13:09 benzoperoxide Allergy Rash/Hives Uncoded 01/23/24 13:09 Review of Systems ROS Statement: Those systems with pertinent positive or pertinent negative responses have been documented in the HPI. ROS Other: All systems not noted in ROS Statement are negative. Past Medical History Past Medical History: Asthma, Diabetes Mellitus, Deep Vein Thrombosis (DVT), GERD/Reflux, Hyperlipidemia, Rheumatoid Arthritis (RA) Additional Past Medical History / Comment(s): MIGRAINE, FATTY LIVER,IRRITABLE BOWEL. BLOOD RIGHT LEG. DIABETIC AUTONOMIC NEUROPATHY. History of Any Multi-Drug Resistant Organisms: MRSA, Other MDRO Date of last positivie culture/infection: 2013 MDRO Source:: nasal Past Surgical History: Adenoidectomy, Bariatric Surgery, Breast Surgery, Section, Cholecystectomy, Hernia Repair, Tonsillectomy, Tubal Ligation Additional Past Surgical History / Comment(s): deviated septum,GASTRIC SLEEVE,D&C,LAP BAN, LAP BAND REMOVAL,UMBILICAL HERNIA,INCISIONAL HERNIA,RIGHT ANKLE SURGERY,CYST BIOPSY Past Anesthesia/Blood Transfusion Reactions: Postoperative Nausea & Vomiting (PONV) Past Psychological History: Anxiety, Bipolar, PTSD Smoking Status: Former smoker Past Alcohol Use History: Rare Past Drug Use History: None Reported - Past Family History Mother Family Medical History: No Reported History Father Family Medical History: Myocardial Infarction ([place]) Additional Family Medical History / Comment(s): Father of a massive [place] following laser eye surgery. Sister(s) Family Medical History: Deep Vein Thrombosis (DVT) General Exam Limitations: no limitations General appearance: alert, in no apparent distress Head exam: Present: atraumatic, normocephalic, normal inspection Eye exam: Present: normal appearance, PERRL, EOMI. Absent: scleral icterus, conjunctival injection, periorbital swelling ENT exam: Present: normal exam, mucous membranes moist Neck exam: Present: normal inspection. Absent: tenderness, meningismus, lymphadenopathy Respiratory exam: Present: normal lung sounds bilaterally. Absent: respiratory distress, wheezes, rales, rhonchi, stridor Cardiovascular Exam: Present: regular rate, normal rhythm, normal heart sounds. Absent: systolic murmur, diastolic murmur, rubs, gallop, clicks GI/Abdominal exam: Present: soft, normal bowel sounds. Absent: distended, tenderness, guarding, rebound, rigid Extremities exam: Present: normal inspection, full ROM, normal capillary refill. Absent: tenderness, pedal edema, joint swelling, calf tenderness Neurological exam: Present: alert, oriented X3 Psychiatric exam: Present: normal affect, normal mood Skin exam: Present: warm, dry, intact, normal color. Absent: rash Course Vital Signs 01/23/24 13:06 Temperature 98.1 F Pulse Rate 79 Respiratory 18 Rate Blood Pressure 159/80 O2 Sat by Pulse 100 Oximetry Medical Decision Making - Medical Decision Making Was pt. sent in by a medical professional or institution (DYLON Aguilar, CRANIOLOGIST, urgent care, hospital, or longterm...) When possible be specific @ -[No] Did you speak to anyone other than the patient for history (EMS, parent, family, police, friend...)? What history was obtained from this source @ -[No] Did you review nursing and triage notes (agree or disagree)? Why? @ -[I reviewed and agree with nursing and triage notes] Were old charts reviewed (outside hosp., previous admission, EMS record, old EKG, old radiological studies, urgent care reports/EKG's, longterm records)? Report findings @ -[No old charts were reviewed] Differential Diagnosis (chest pain, altered mental status, abdominal pain women, abdominal pain men, vaginal bleeding, weakness, fever, dyspnea, syncope, he adache, dizziness, GI bleed, back pain, seizure, CVA, palpatations, mental health, musculoskeletal)? @ -[Differential Back Pain: Strain, zoster, cauda equina syndrome, epidural abscess, vertebral os teomyelitis, discitis, fracture, subluxation, disc herniation, DJD, spinal stenosis, dissection, AAA, pancreatitis, peptic ulcer disease, pyelonephritis, kidney stone, this is not meant to be an all-inclusive list. ] EKG interpreted by me (3pts min.). @ -[None] X-rays interpreted by me (1pt min.). @ -[None done] CT interpreted by me (1pt min.). @ -[CT abdomen pelvis revealing 1 cm stone in the left ureteropelvic junction] U/S interpreted by me (1pt. min.). @ -[None done] What testing was considered but not performed or refused? (CT, X-rays, U/S, labs)? Why? @ -[None] What meds were considered but not given or refused? Why? @ -[None] Did you discuss the management of the patient with other professionals (professionals i.e. DYLON Aguilar, CRANIOLOGIST, lab, RT, psych nurse, socially responsible investment adviser, boilermaker pipe fitter, teacher, preventive medicine officer, trimming caser)? Give summary @ -[No] Was smoking cessation discussed for >3mins.? @ -[No] Was critical care preformed (if so, how long)? @ -[No] Were there social determinants of health that impacted care today? How? (Homelessness, low income, unemployed, alcoholism, drug addiction, transportation, low edu. Level, literacy, decrease access to med. care, alf, rehab)? @ -[No] Was there de-escalation of care discussed even if they declined (Discuss DNR or withdrawal of care, Hospice)? DNR status @ -[No] What co-morbidities impacted this encounter? (DM, HTN, Smoking, COPD, CAD, Cancer, CVA, ARF, Chemo, Hep., AIDS, mental health diagnosis, sleep apnea, morbid obesity)? @ -[None] Was patient admitted / discharged? Hospital course, mention meds given and route, prescriptions, significant lab abnormalities, going to OR and other pertinent info. @ -[Patient presented to the emergency department for evaluation of left flank pain. Admits to hematuria. Laboratory studies were obtained revealing no significant leukocytosis. CMP shows sodium 137 potassium 4.4, creatinine 0.62, lactic acid 1.9; UA is revealing large blood, greater than 182 RBCs no evidence of infectious process, negative urine hCG. CT abdomen pelvis was obtained revealing a 1 cm stone in the left UPJ with mild hydronephrosis.] Undiagnosed new problem with uncertain prognosis? @ -[No] Drug Therapy requiring intensive monitoring for toxicity (Heparin, Nitro, Insulin, Cardizem)? @ -[No] Were any procedures done? @ -[No] Diagnosis/symptom? @ -[default] Acute, or Chronic, or Acute on Chronic? @ -[default] Uncomplicated (without systemic symptoms) or Complicated (systemic symptoms)? @ -[default] Side effects of treatment? @ -[No] Exacerbation, Progression, or Severe Exacerbation? @ -[No] Poses a threat to life or bodily function? How? (Chest pain, [place], [place], pneumonia, PE, COPD, DKA, ARF, appy, cholecystitis, CVA, Diverticulitis, Homicidal, Suicidal, threat to staff... and all critical care pts) @ -[No] - Lab Data Result diagrams: 01/23/24 13:41 01/23/24 13:41 Lab Results 01/23/24 01/23/24 01/23/24 Range/Units 13:41 13:41 13:41 WBC 8.3 (3.8-10.6) k/uL RBC 4.97 (3.80-5.40) m/uL Hgb 14.9 (11.4-16.0) gm/dL Hct 43.4 (34.0-46.0) % MCV 87.3 (80.0-100.0) fL MCH 30.0 (25.0-35.0) pg MCHC 34.3 (31.0-37.0) g/dL RDW 12.1 (11.5-15.5) % Plt Count 364 (150-450) k/uL MPV 6.8 Neutrophils % 79 % Lymphocytes % 14 % Monocytes % 5 % Eosinophils % 1 % Basophils % 1 % Neutrophils # 6.6 (1.3-7.7) k/uL Lymphocytes # 1.1 (1.0-4.8) k/uL Monocytes # 0.4 (0-1.0) k/uL Eosinophils # 0.1 (0-0.7) k/uL Basophils # 0.1 (0-0.2) k/uL Sodium (137-145) mmol/L Potassium (3.5-5.1) mmol/L Chloride (98-107) mmol/L Carbon Dioxide (22-30) mmol/L Anion Gap mmol/L BUN (7-17) mg/dL Creatinine (0.52-1.04) mg/dL Est GFR (CKD-EPI)AfAm (>60 ml/min/1.73 sqM) Est GFR (CKD-EPI)NonAf (>60 ml/min/1.73 sqM) Glucose (74-99) mg/dL Plasma Lactic Acid Will (0.7-2.0) mmol/L Calcium (8.4-10.2) mg/dL Total Bilirubin (0.2-1.3) mg/dL AST (14-36) U/L ALT (4-34) U/L Alkaline Phosphatase (38-126) U/L Total Protein (6.3-8.2) g/dL Albumin (3.5-5.0) g/dL Amylase (30-110) U/L Lipase (23-300) U/L Urine Color Light Red Urine Appearance Cloudy H (Clear) Urine pH 5.5 (5.0-8.0) Ur Specific [place] 1.028 (1.001-1.035) Urine Protein 1+ H (Negative) Urine Glucose (UA) Negative (Negative) Urine Ketones Negative (Negative) Urine Blood Large H (Negative) Urine Nitrite Negative (Negative) Urine Bilirubin Negative (Negative) Urine Urobilinogen <2.0 (<2.0) mg/dL Ur Leukocyte Esterase Negative (Negative) Urine RBC >182 H (0-5) /hpf Urine WBC 4 (0-5) /hpf Ur Squamous Epith Cells 8 H (0-4) /hpf Urine Bacteria Moderate H (None) /hpf Urine Mucus Many H (None) /hpf Urine Yeast (Budding) Occasional H (None) /hpf Urine HCG, Qual Not Detected (Not Detectd) 01/23/24 01/23/24 Range/Units 13:41 13:41 WBC (3.8-10.6) k/uL RBC (3.80-5.40) m/uL Hgb (11.4-16.0) gm/dL Hct (34.0-46.0) % MCV (80.0-100.0) fL MCH (25.0-35.0) pg MCHC (31.0-37.0) g/dL RDW (11.5-15.5) % Plt Count (150-450) k/uL MPV Neutrophils % % Lymphocytes % % Monocytes % % Eosinophils % % Basophils % % Neutrophils # (1.3-7.7) k/uL Lymphocytes # (1.0-4.8) k/uL Monocytes # (0-1.0) k/uL Eosinophils # (0-0.7) k/uL Basophils # (0-0.2) k/uL Sodium 137 (137-145) mmol/L Potassium 4.4 (3.5-5.1) mmol/L Chloride 103 (98-107) mmol/L Carbon Dioxide 26 (22-30) mmol/L Anion Gap 8 mmol/L BUN 14 (7-17) mg/dL Creatinine 0.62 (0.52-1.04) mg/dL Est GFR (CKD-EPI)AfAm >90 (>60 ml/min/1.73 sqM) Est GFR (CKD-EPI)NonAf >90 (>60 ml/min/1.73 sqM) Glucose 202 H (74-99) mg/dL Plasma Lactic Acid Will 1.9 (0.7-2.0) mmol/L Calcium 9.7 (8.4-10.2) mg/dL Total Bilirubin 1.2 (0.2-1.3) mg/dL AST 27 (14-36) U/L ALT 25 (4-34) U/L Alkaline Phosphatase 72 (38-126) U/L Total Protein 7.1 (6.3-8.2) g/dL Albumin 4.3 (3.5-5.0) g/dL Amylase 58 (30-110) U/L Lipase 82 (23-300) U/L Urine Color Urine Appearance (Clear) Urine pH (5.0-8.0) Ur Specific [place] (1.001-1.035) Urine Protein (Negative) Urine Glucose (UA) (Negative) Urine Ketones (Negative) Urine Blood (Negative) Urine Nitrite (Negative) Urine Bilirubin (Negative) Urine Urobilinogen (<2.0) mg/dL Ur Leukocyte Esterase (Negative) Urine RBC (0-5) /hpf Urine WBC (0-5) /hpf Ur Squamous Epith Cells (0-4) /hpf Urine Bacteria (None) /hpf Urine Mucus (None) /hpf Urine Yeast (Budding) (None) /hpf Urine HCG, Qual (Not Detectd) Disposition Clinical Impression: Urolithiasis Disposition: HOME SELF-CARE Condition: Stable Instructions (If sedation given, give patient instructions): Kidney Stones (ED) Additional Instructions: Please follow up with your urologist. Return to the emergency department for new or worsening symptoms. Prescriptions: Tamsulosin [Flomax] 0.4 mg PO DAILY #7 cap HYDROcodone/APAP 10-325MG [Cannon 10-325] 1 tab PO Q6HR PRN 3 Days #12 tab PRN Reason: Pain Ondansetron Odt [Zofran Odt] 4 mg PO Q8HR PRN #15 tab PRN Reason: Nausea Is patient prescribed a controlled substance at d/c from ED?: Yes When asked, does pt state using other controlled substances?: No If prescribed controlled substance>3 days was MAPS reviewed?: Prescribed <3 Days Referrals: Pasquale Kimball MD [Primary Care Provider] - 1-2 days
[2024-01-23 16:59] VITALS: BP 132/83; PULSE 76
== END 2024-01-23 17:01 | disposition home or self-care (01) ==
LOC: EC 13:03
DX: N13.2 Hydronephrosis with renal and ureteral calculous obstruction (principal); Z88.0 Allergy status to penicillin; Z88.1 Allergy status to other antibiotic agents; Z88.8 Allergy status to other drugs, medicaments and biological substances; Z88.6 Allergy status to analgesic agent
CPT/HCPCS: 36415; 74176; 80053; 81001; 81025; 82150; 83605; 83690; 85025; 96360; 96361; 99284

== ENCOUNTER → 2024-01-25 | Outpatient (CLI) | payer MEDICARE, OTHER ==
--- NOTE | 2024-01-25 11:17 | XR ---
EXAMINATION TYPE: XR KUB DATE OF EXAM: 01/25/2024 HISTORY: Pain Comparison: None.Single KUB is submitted for interpretation. Findings: Right renal calculi: None Visualized. Right ureteral calculi: None Visualized. Left renal calculi: 7 mm left renal calculus. Left ureteral calculi: None Visualized. Pelvic calcifications: None Visualized. Bowel gas pattern is unremarkable. No free air. No mass effects. IMPRESSION: 1. 7 mm left renal calculus.
== END | disposition home or self-care (01) ==
LOC: RADXRMAIN 10:50
PROVIDERS: ATTEND Urology
DX: N20.0 Calculus of kidney (principal)
CPT/HCPCS: 74018

== ENCOUNTER 2024-02-04 10:00 | Day surgery (SDC) | payer MEDICARE, OTHER ==
[~2024-02-04 10:00] MED LIST changes: +LACTATED RINGERS 1,000 ML BAG ONE; -LACTATED RINGERS 1,000 ML IV SCH; -LIDOCAINE 1% (10MG/ML) FOR IV START INTRADERMA PRN; +SODIUM CHLORIDE 0.9% 100 ML BAG IV ONE; +ceFAZolin 1,000 MG VIAL ONE
[2024-02-04] MEDS ORDERED: LACTATED RINGERS 1,000 ML BAG ONE (10:55)
[2024-02-04] MEDS ORDERED: ONDANSETRON 4 MG/2 ML VIAL ONE ×2 (11:03→15:18)
[2024-02-04] MEDS ORDERED: fentaNYL (PF) 50 MCG/ML 2 ML AMP ONE ×2 (12:45→13:38)
[2024-02-04] MEDS ORDERED: LIDOCAINE 4% LTA KIT (4 ML) TOPICAL ONE (13:38)
[2024-02-04] MEDS ORDERED: LIDOCAINE 1% INJ 10MG/ML (20 ML MDV) ONE (13:38)
[2024-02-04] MEDS ORDERED: PROPOFOL 10 MG/ML 20 ML VIAL IV ONE (13:38)
[2024-02-04] MEDS ORDERED: SUCCINYLCHOLINE CHLORIDE 200 MG/10 ML VIAL IV ONE (13:38)
[2024-02-04] MEDS ORDERED: LEVOFLOXACIN 500MG-D5W PMX 500 MG/100 ML BAG IVPB ONE (13:42)
[2024-02-04 15:26] LABS: Glucose,Whole Blood 114 mg/dL (70-110)
--- NOTE | 2024-03-14 12:52 | XR ---
Patient: Maral Bergeron A Ordering Physician: Unknown, Unknown ID: [id number] Phone, Pager: Phone: N/ A Pager: N/A : 1975 Age/Gender: 48Y, F Primary Location: N/A Procedure: XR KUB Study Date: 02/03 9:32:00 AM EXAMINATION TYPE: XR KUB DATE OF EXAM: 02/21/2024 11:08 AM CLINICAL INDICATION: Preop left renal stone COMPARISON: 01/25/2024. TECHNIQUE: One radiographic view of the abdomen was obtained. FINDINGS: The bowel gas pattern is nonspecific without dilated loops of small or large bowel. . Fecal material and gas are demonstrated throughout the colon and rectum. There is no evidence for organomegaly or pneumoperitoneum. The osseous structures are intact. Left renal calculi measuring up to 8 mm. Cholecystectomy clips. IMPRESSION: 1. 8 mm left renal pelvis calculus. 2. Nonspecific bowel gas pattern without radiographic evidence for acute process.
--- NOTE | 2024-03-29 18:21 | FL ---
EXAMINATION TYPE: FL urography retrograde DATE OF EXAM: 03/03/2024 9:46 AM COMPARISON: Pre Operative Images if available both CT/MRI or plain film CLINICAL INDICATION: Female, 48 years old with history of RETRO CYSTO LITHO IN OR; TECHNIQUE: FL urography retrograde, multiple fluoroscopic images provided for procedure. Total fluoroscopy time: 14 seconds Total submitted images to PACS: 1 DAP: 1.2547 mGym2 Gycm2 uGym2 cGycm2 or equivalent. FINDINGS: Multiple intraoperative fluoroscopic images were taken resulting in ureteral stent placement with sup erior pigtail in appropriate position projecting over the renal pelvis. No immediate intraoperative c omplication. Multilevel degeneration changes throughout the spine. IMPRESSION: 1. No evidence for intraoperative complication. 2. Please see the operative/procedural note for further details. [facility], , 03/29/2024 6:18 PM
== END 2024-02-04 16:30 | disposition home or self-care (01) ==
LOC: OR 10:00
PROVIDERS: ATTEND Urology
DX: N20.0 Calculus of kidney
CPT/HCPCS: 74018; 74420

== ENCOUNTER → 2024-02-04 | Outpatient (CLI) | payer MEDICARE, OTHER | END | disposition home or self-care (01) | LOC: LABPRL 14:00 | PROVIDERS: ATTEND Urology | DX: N20.0 Calculus of kidney (principal) | CPT/HCPCS: 80048; 85027 ==

== ENCOUNTER → 2024-03-24 | Outpatient (CLI) | payer MEDICARE, OTHER ==
[2024-03-24 15:45] LABS: Chol/HDL Ratio 3.01 Ratio
[2024-03-24 15:46] LABS: ALT 21 U/L (8-44); AST 19 U/L (13-35); Albumin 4.4 g/dL (3.8-4.9); Albumin/Globulin Ratio 1.83 Ratio (1.60-3.17); Alkaline Phosphatase 93 U/L (41-126); Blood Urea Nitrogen 11.6 mg/dL (9.0-27.0); Calcium 9.5 mg/dL (8.7-10.3); Carbon Dioxide 26.1 mmol/L (21.6-31.8); Chloride 99 mmol/L (96-109); Globulin 2.4 g/dL (1.6-3.3); Glucose 168 mg/dL (70-110); LDL Cholesterol,Calculated 121.9 mg/dL (0.0-131.0); Potassium 4.3 mmol/L (3.5-5.5); Sodium 136 mmol/L (135-145); Total Bilirubin 0.5 mg/dL (0.3-1.2); Total Protein 6.8 g/dL (6.2-8.2)
[2024-03-24 21:18] LABS: Microalbumin Creatinine Ratio <29 mg/g Cr (0-30); Urine Creatinine 41.5 mg/dL (28.0-217.0)
== END | disposition home or self-care (01) ==
LOC: LABWHC1 08:17
PROVIDERS: ATTEND Internal Medicine Endocrinology, Diabetes & Metabolism
DX: E11.65 Type 2 diabetes mellitus with hyperglycemia (principal)
CPT/HCPCS: 36415; 80053; 80061; 82043; 82570; 83036; 84443

== ENCOUNTER → 2024-03-24 | Outpatient (CLI) | payer MEDICARE, OTHER ==
--- NOTE | 2024-03-28 08:24 | XR ---
EXAMINATION TYPE: XR KUB DATE OF EXAM: 03/24/2024 COMPARISON: 02/04/2024 HISTORY: Right-sided calculus TECHNIQUE: AP abdomen FINDINGS: Fecal debris is within the colon. Nonspecific bowel gas is present. Cholecystectomy clips a re in the right upper quadrant. Organomegaly is not evident. Psoas margins are normal. Postsurgical c hanges are at the epigastric region. Previous left upper quadrant calcification not identified on the current exam. Right renal ureteral stone not identified may be obscured fecal debris. IMPRESSION: 1. Nonspecific abdomen. [facility], , 03/28/2024 8:22 AM
--- NOTE | 2024-03-28 08:27 | US ---
EXAMINATION TYPE: US kidneys/renal and bladder DATE OF EXAM: 03/24/2024 COMPARISON: 07/02/2022 CLINICAL INDICATION: Female, 48 years old with history of N200 kidney and kub; Hx left kidney stone w ith removal and mild hydro. EXAM MEASUREMENTS: Right Kidney: 10.8 x 4.7 x 4.8 cm Left Kidney: 10.7 x5.1 x 6.2 cm. There is a 0.9 x 0.8 x 0.8 cm anechoic structure with posterior wall enhancement and some through transmission compatible with small renal cyst Right Kidney: No hydronephrosis or masses seen Left Kidney: No hydronephrosis or masses seen Bladder: distended, anechoic Bilateral Jets seen IMPRESSION: 1. Renal cortical cyst left kidney [facility], , 03/28/2024 8:24 AM
== END | disposition home or self-care (01) ==
LOC: RADUSWWP 08:58
PROVIDERS: ATTEND Urology
DX: N20.0 Calculus of kidney
CPT/HCPCS: 74018; 76770

== ENCOUNTER → 2024-07-11 | Outpatient (CLI) | payer MEDICARE, OTHER ==
[2024-07-11 18:13] LABS: ALT 21 U/L (8-44); AST 20 U/L (13-35); Albumin 4.2 g/dL (3.8-4.9); Albumin/Globulin Ratio 1.83 Ratio (1.60-3.17); Alkaline Phosphatase 90 U/L (41-126); BUN/Creat Ratio 13.38 Ratio (12.00-20.00); Blood Urea Nitrogen 10.7 mg/dL (9.0-27.0); Calcium 9.2 mg/dL (8.7-10.3); Carbon Dioxide 28.2 mmol/L (21.6-31.8); Chloride 104 mmol/L (96-109); Globulin 2.3 g/dL (1.6-3.3); Glucose 111 mg/dL (70-110); LDL Cholesterol,Calculated 100.8 mg/dL (0.0-131.0); Potassium 3.8 mmol/L (3.5-5.5); Sodium 142 mmol/L (135-145); Total Bilirubin 0.8 mg/dL (0.3-1.2); Total Protein 6.5 g/dL (6.2-8.2); VLDL Calculation 13.04 mg/dL (5.00-40.00)
== END | disposition home or self-care (01) ==
LOC: RADXRMAIN 11:10
PROVIDERS: ATTEND Internal Medicine Endocrinology, Diabetes & Metabolism
DX: E11.65 Type 2 diabetes mellitus with hyperglycemia (principal)
CPT/HCPCS: 80053; 80061; 82043; 82570; 83036; 84443

== ENCOUNTER → 2024-07-14 | Outpatient (CLI) | payer MEDICARE, OTHER ==
--- NOTE | 2024-07-14 12:01 | MM ---
Reason for Exam: Screening (asymptomatic). Last screening mammogram was performed 12 month(s) ago. Patient History: Menarche at age 11. First Full-Term at age 24. Perimenopausal. Currently using Progesterone, for 1 month. 2000, Benign Excisional Biopsy on the left side. Currently . Risk Values: Tami 5 year model risk: 1.3%. NCI Lifetime model risk: 11.4%. Prior Study Comparison: 07/02/2022 Bilateral MG 3D diag mammo w/cad ISAAC, [facility]. 01/01/2023 Right MG 3D diag mammo w/cad RT, [facility]. 07/13/2023 Bilateral MG 3D screening mammo w/cad, [facility]. Tissue Density: The breasts are heterogeneously dense, which may obscure small masses. Findings: Analyzed By CAD. There are several scattered benign-appearing round calcifications bilaterally more numerous in the right breast redemonstrated. There is no suspicious group of microcalcifications or new suspicious mass in either breast. Overall Assessment: Benign, BI-RAD 2 Management: Screening Mammogram of both breasts in 1 year. . Patient should continue monthly self-breast exams. A clinical breast exam by your physician is recommended on an annual basis. This exam should not preclude additional follow-up of suspicious palpable abnormalities. Note on Tami scores and lifetime risk: 1. A Tami score greater than 3% is considered moderate risk. If this is the case, consider specialist referral to assess eligibility for a risk reducing agent. 2. If overall lifetime risk for the development of breast cancer is 20% or higher, the patient may qualify for future screening with alternating mammogram and breast MRI. [facility], , 07/14/2024 11:57 AM. Electronically signed and approved by: Joseph Simon M.D.
== END | disposition home or self-care (01) ==
LOC: RADMAMWWP 08:22
PROVIDERS: ATTEND Surgery
DX: Z12.31 Encounter for screening mammogram for malignant neoplasm of breast (principal); R92.333 Mammographic heterogeneous density, bilateral breasts
CPT/HCPCS: 77063; 77067

== ENCOUNTER → 2025-01-18 | Outpatient (CLI) | payer MEDICARE, OTHER ==
[2025-01-18 22:12] LABS: Alternaria alternata IgE <0.10 kU/L; Aspergillus fumagatus IgE <0.10 kU/L; Cat Epith & Dander IgE <0.10 kU/L; Cladosporian herbarum IgE 0.15 kU/L; Dermato. farinae IgE <0.10 kU/L; Oak IgE <0.10 kU/L; Ragweed,Common IgE <0.10 kU/L; Red Top (Bentgrass) IgE <0.10 kU/L
== END | disposition home or self-care (01) ==
LOC: LABWHC1 14:31
PROVIDERS: ATTEND Internal Medicine Critical Care Medicine
DX: J45.50 Severe persistent asthma, uncomplicated (principal)
CPT/HCPCS: 36415; 82785; 85008; 86003